=== PATIENT | female | born 1940 | race Caucasian/White ===

== ENCOUNTER → 2016-07-03 | Outpatient (CLI) | payer MEDICARE, BC ==
[2016-07-03 10:40] LABS: Basophils % (A) 1 %; Eosinophils # (A) 0.1 k/uL (0-0.7); Eosinophils % (A) 2 %; HCT 41.5 % (34.0-46.0); HDW 2.64; HGB 13.1 gm/dL (11.4-16.0); Luc # (Auto) 0.04; Luc % (Auto) 1; Lymphocytes # (A) 0.6 k/uL (1.0-4.8); Lymphocytes % (A) 13 %; MCH 32.8 pg (25.0-35.0); MCHC 31.6 g/dL (31.0-37.0); MCV 103.8 fL (80.0-100.0); Macrocytosis Moderate; Mean Platelet Volume 7.3; Monocytes # (A) 0.2 k/uL (0-1.0); Monocytes % (A) 4 %; Neutrophils # (A) 3.6 k/uL (1.3-7.7); Neutrophils % (A) 80 %; WBC 4.5 k/uL (3.8-10.6); WBC (Perox) 4.79
[2016-07-03 12:49] LABS: ALT 29 U/L (9-52); AST 22 U/L (14-36); Alkaline Phosphatase 132 U/L (38-126); Anion Gap 12 mmol/L; Blood Urea Nitrogen 15 mg/dL (7-17); Calcium 9.5 mg/dL (8.4-10.2); Carbon Dioxide 28 mmol/L (22-30); Chloride 102 mmol/L (98-107); Cholesterol 162 mg/dL (<200); Creatine Kinase 57 U/L (30-135); Glucose 104 mg/dL (74-99); HDL Cholesterol 49 mg/dL (40-60); Magnesium 1.6 mg/dL (1.6-2.3); Non-African American GFR(MDRD) >60 (>60 ml/min/1.73 sqM); Potassium 4.2 mmol/L (3.5-5.1); Sodium 142 mmol/L (137-145); Total Bilirubin 0.5 mg/dL (0.2-1.3); Total Protein 6.9 g/dL (6.3-8.2); Triglycerides 104 mg/dL (<150); Uric Acid 5.2 mg/dL (3.7-7.4)
[2016-07-03 13:28] LABS: Vitamin B12 466 pg/mL
[2016-07-03 15:14] LABS: Erythrocyte Sedimentation Rate 28 mm/hr (0-20)
[2016-07-03 19:45] LABS: Hemoglobin A1C 5.7 % (4.2-6.1)
== END | disposition home or self-care (01) ==
LOC: LABWHC1 09:32
PROVIDERS: ATTEND Family Medicine
DX: I48.2 Chronic atrial fibrillation (principal); E11.69 Type 2 diabetes mellitus with other specified complication; I10 Essential (primary) hypertension; R26.9 Unspecified abnormalities of gait and mobility; M10.9 Gout, unspecified; M79.7 Fibromyalgia; E03.9 Hypothyroidism, unspecified
CPT/HCPCS: 36415; 80053; 80061; 82043; 82550; 82607; 83036; 83735; 84439; 84443; 84550; 85025; 85652

== ENCOUNTER → 2016-08-08 | Outpatient (CLI) | payer MEDICARE, BC ==
--- NOTE | 2016-08-08 14:04 | MM ---
Reason for exam: history of breast cancer, conservation therapy. Last mammogram was performed 1 year and 2 months ago. History: Patient is postmenopausal, has history of breast cancer at age 73, and had first child at age 30. Family history of breast cancer in father at age 60. Lumpectomy of the left breast, 2013. Chemotherapy. Radiation therapy. Physical Findings: Nurse did not find any significant physical abnormalities on exam. MG 3D Diag Mammo W/Cad MAVERICK Bilateral CC and MLO view(s) were taken. Prior study comparison: June 14, 2015, bilateral MG 3d diag mammo w/cad MAVERICK. April 05, 2014, mammogram, performed at [facility]. April 12, 2013, mammogram, performed at [facility]. There are scattered fibroglandular densities. Finding: There are typically benign round calcifications in both breasts. There is a chronic nodularity in the left breast. There is no discrete abnormality. These results were verbally communicated with the patient and result sheet given to the patient on 08/08/16. ASSESSMENT: Benign, BI-RAD 2 RECOMMENDATION: Follow-up diagnostic mammogram of both breasts in 1 year.
--- NOTE | 2016-08-08 15:28 | BD ---
EXAMINATION TYPE: MG DEXA axial skeleton. DATE OF EXAM: 08/08/2016 12:57 PM COMPARISON: NONE CLINICAL HISTORY: Postmenopausal female with known osteoporosis per order. Height: 5 ft 6 in Weight: 230 FRAX RISK QUESTIONS: Alcohol (3 or more units per day): NO Family History (Parent hip fracture): NO Glucocorticoids (More than 3mos): NOT NOW (Ex: prednisone, prednisolone, methylprednisolone, dexamethasone, and hydrocortisone). History of Fracture in Adulthood: NO Secondary Osteoporosis: 1. Type 1 Diabetes: NO 2. Hyperthyroidism: NO 3. Menopause before 45: NO 4. Malnutrition: NO 5. Chronic liver disease: NO Rheumatoid Arthritis: NO Current Tobacco Use: NO RISK FACTORS HISTORY OF: Surgery to Spine/Hip(right/left)/Wrist (right/left): LUMBAR SURG When: 15 YRS AGO Postmenopausal woman: AROUND AGE 43 Frequent falls: YES MEDICATIONS: Thyroid Medications: Which medication: SYNTHROID How Lon-40 YRS SYNTHROID, POT-CHLOR, TENORMIN, DOXYCIN, XANAX, CYMBALTA, METFORMIN, LASIX, OXYBUTYNIN, TRAMADOL, D3, IRON, LIPITOR,ASPIRIN Additional History: EXAM MEASUREMENTS: Bone mineral density about the R hip (g/cm2): 0.887 Bone mineral density about the L hip (g/cm2): 0.854 T Score values are as follows: -----R Neck: -1.1 -----L Neck: -1.3 -----R Intertrochanter: -1.0 -----L Intertrochanter: -1.1 PREV DONE IN [facility] IMPRESSION: Osteopenia (T Score between -2.5 and -1 as noted by T score values in the bilateral hips. There is sl ightly increased risk of fracture and the patient may be considered for treatment. Re-Screen 1-2 years. NOTE: T-SCORE=SD OF THE YOUNG ADULT MEAN.
== END ==
LOC: RADBDWWP 12:26
PROVIDERS: ATTEND Family Medicine
DX: Z08 Encounter for follow-up examination after completed treatment for malignant neoplasm (principal); Z85.3 Personal history of malignant neoplasm of breast; M85.851 Other specified disorders of bone density and structure, right thigh; M85.852 Other specified disorders of bone density and structure, left thigh; Z78.0 Asymptomatic menopausal state
CPT/HCPCS: 77080; G0204; G0279

== ENCOUNTER → 2016-12-06 | Outpatient (CLI) | payer MEDICARE, BC ==
--- NOTE | 2016-12-06 12:54 | XR ---
EXAMINATION TYPE: XR ankle complete RT DATE OF EXAM: 12/06/2016 COMPARISON: NONE HISTORY: Right ankle pain TECHNIQUE: Three-view right ankle FINDINGS: There may be some diffuse soft tissue swelling present. The ankle mortise is intact. No acu te fractures are identified. Plantar calcaneal heel spurs are present. Note is made of plantar arch f lattening. IMPRESSION: 1. No acute fractures. 2. Soft tissue swelling. 3. Loss of the plantar arch
--- NOTE | 2016-12-06 12:55 | XR ---
EXAMINATION TYPE: XR Hip Complete LT DATE OF EXAM: 12/06/2016 COMPARISON: NONE HISTORY: Pain TECHNIQUE: 2 view left hip FINDINGS: There is narrowing of the joint space compatible with osteoarthritic degenerative change. N o acute fractures evident. There appears to be a lytic area within the superior femoral head. Prior f racture could be considered. Subchondral cyst formation could be considered. Osteochondritis dissecan s could be included. Additional evaluation with MRI is recommended. IMPRESSION: 1. Superior femoral head lucency. Additional workup with MRI is recommended. 2. An acute osseous abnormality is not identified.
== END | disposition home or self-care (01) ==
LOC: RADXRMAIN 12:16
PROVIDERS: ATTEND Family Medicine
DX: M89.8X6 Other specified disorders of bone, lower leg (principal); M25.552 Pain in left hip; M21.6X1 Other acquired deformities of right foot; M79.89 Other specified soft tissue disorders; M25.571 Pain in right ankle and joints of right foot
CPT/HCPCS: 73502

== ENCOUNTER → 2017-01-27 | Outpatient (CLI) | payer MEDICARE, BC ==
--- NOTE | 2017-01-27 11:08 | CT ---
EXAMINATION TYPE: CT lower extremity LT wo con DATE OF EXAM: 01/27/2017 COMPARISON: Plain film 12/06/2016 HISTORY: Left hip pain x2 months CT DLP: 349.50 mGycm Automated exposure control for dose reduction was used. Helical imaging through the left hip. Three-d imensional reconstructions performed on an alternate workstation. FINDINGS: CT findings correlate with plain film. There is joint space loss, marginal spurring present. Lucency seen on plain film corresponds to focal fragmented appearance at the superior aspect of the femoral h ead, there is associated sclerosis involving the femoral head at the level of the hip joint. No femor al head collapse is evident. Geode formation present within the acetabulum. Diverticular change noted incidentally within the sigmoid colon. IMPRESSION: FINDINGS COULD REPRESENT OSTEONECROSIS OF THE FEMORAL HEAD OR POSSIBLY OSTEOARTHRITIS WITH GEODE FORM ATION, DIFFICULT TO EXCLUDE SOME SMALL LOOSE BODIES.
== END | disposition home or self-care (01) ==
LOC: RADCTMAIN 09:13
PROVIDERS: ATTEND Family Medicine
DX: M25.552 Pain in left hip (principal)

== ENCOUNTER → 2017-01-30 | Outpatient (CLI) | payer MEDICARE, BC ==
--- NOTE | 2017-01-30 15:11 | NM ---
EXAMINATION TYPE: NM bone scan whole body DATE OF EXAM: 01/30/2017 COMPARISON: NONE HISTORY: Breast cancer Delayed whole-body scanning was performed following the injection of 26.0 mCi Tc 99m MDP. Images acq uired 3 hours post injection included whole-body in anterior posterior projection and spot images of the thorax abdomen and pelvis in multiple projections. FINDINGS: There is no suspicious scintigraphic uptake of radiotracer to suggest metastatic disease to the bone or other osseous abnormality with exception of single focus of abnormal uptake in the upper sternum. Lucency from bilateral knee metallic hardware is noted. There is slight underlying shaped scoliosis t o the thoracolumbar spine seen. IMPRESSION: Single area of concern in the upper sternum is noted, correlation with chest CT is advised as can bes t assess flat bones.
== END | disposition home or self-care (01) ==
LOC: RADNMMAIN 10:03
PROVIDERS: ATTEND Family Medicine
DX: C50.912 Malignant neoplasm of unspecified site of left female breast (principal)
CPT/HCPCS: 78306; A9503

== ENCOUNTER → 2017-05-26 | Outpatient (CLI) | payer MEDICARE, BC ==
--- NOTE | 2017-05-26 17:58 | ECHOF ---
Referral Reason:I50.33 Acute chronic CHF MEASUREMENTS -------- HEIGHT: 165.1 cm WEIGHT: 99.8 kg BP: RVIDd: 2.9 cm (< 3.3) IVSd: 1.1 cm (0.6 - 1.1) LVIDd: 4.4 cm (3.9 - 5.3) LVPWd: 1.0 cm (0.6 - 1.1) IVSs: 1.6 cm LVIDs: 3.1 cm LVPWs: 1.0 cm LAESV Index (A-L): 50.80 ml/m Ao Diam: 2.3 cm (2.0 - 3.7) AV Cusp: 1.6 cm (1.5 - 2.6) LA Diam: 4.6 cm (2.7 - 3.8) MV EXCURSION: 15.618 mm (> 18.000) MV EF SLOPE: 142 mm/s (70 - 150) EPSS: 0.7 cm MV E Carlos: 1.36 m/s MV DecT: 163 ms MV A Carlos: 0.44 m/s MV E/A Ratio: 3.09 RAP: 5.00 mmHg RVSP: 51.70 mmHg FINDINGS -------- Sinus rhythm. This was a technically adequate study. The left ventricular size is normal. There is mild concentric left ventricular hypertrophy. Overa ll left ventricular systolic function is normal with, an EF between 55 - 60 %. The right ventricle is normal in size. LA is severely dilated >40 ml/m2 The right atrium is markedly enlarged. There is mild aortic valve sclerosis. There is mild aortic regurgitation. Mild mitral annular calcification present. Moderate mitral regurgitation is present. Mild tricuspid regurgitation present. There is moderate pulmonary hypertension. The right ventric ular systolic pressure, as measured by Doppler, is 51.70mmHg. Trace/mild (physiologic) pulmonic regurgitation. The aortic root size is normal. There is no pericardial effusion. CONCLUSIONS -------- 1. The left ventricular size is normal. 2. There is mild concentric left ventricular hypertrophy. 3. Overall left ventricular systolic function is normal with, an EF between 55 - 60 %. 4. LA is severely dilated >40 ml/m2 5. The right atrium is markedly enlarged. 6. There is mild aortic valve sclerosis. 7. There is mild aortic regurgitation. 8. Mild mitral annular calcification present. 9. Moderate mitral regurgitation is present. 10. Mild tricuspid regurgitation present. 11. There is moderate pulmonary hypertension. 12. The right ventricular systolic pressure, as measured by Doppler, is 51.70mmHg. 13. Trace/mild (physiologic) pulmonic regurgitation. 14. The aortic root size is normal. 15. There is no pericardial effusion. INJECTION MOLDING TECHNICIAN: Fabiola Borrero RDCS
== END | disposition home or self-care (01) ==
LOC: RADECHMAIN 11:21
PROVIDERS: ATTEND Family Medicine
DX: I08.3 Combined rheumatic disorders of mitral, aortic and tricuspid valves (principal); I27.20 Pulmonary hypertension, unspecified; I50.33 Acute on chronic diastolic (congestive) heart failure
CPT/HCPCS: 93306

== ENCOUNTER → 2017-11-10 | Outpatient (CLI) | payer MEDICARE, BC ==
--- NOTE | 2017-11-10 11:48 | MM ---
Reason for exam: additional evaluation requested from prior study. Last mammogram was performed 1 year and 3 months ago. History: Patient is postmenopausal, has history of breast cancer at age 73, and had first child at age 30. Family history of breast cancer in father at age 60. Lumpectomy of the left breast, 2013. Chemotherapy. Radiation therapy. Physical Findings: Nurse did not find any significant physical abnormalities on exam. MG 3D Diag Mammo W/Cad MAVERICK Bilateral CC and MLO view(s) were taken. Prior study comparison: August 08, 2016, bilateral MG 3d diag mammo w/cad MAVERICK. June 14, 2015, bilateral MG 3d diag mammo w/cad MAVERICK. There are scattered fibroglandular densities. Post surgical changes in the left breast. No significant new findings when compared with previous films. These results were verbally communicated with the patient and result sheet given to the patient on 11/10/17. ASSESSMENT: Benign, BI-RAD 2 RECOMMENDATION: Follow-up diagnostic mammogram of both breasts in 1 year.
== END | disposition home or self-care (01) ==
LOC: RADMAMWWP 10:26
PROVIDERS: ATTEND Family Medicine
DX: R92.2 Inconclusive mammogram (principal)
CPT/HCPCS: 77066; G0279; 77062

== ENCOUNTER → 2017-12-25 | Outpatient (CLI) | payer MEDICARE, BC ==
--- NOTE | 2017-12-25 11:51 | XR ---
EXAMINATION TYPE: XR knee complete RT DATE OF EXAM: 12/25/2017 CLINICAL HISTORY: Pain and swelling. TECHNIQUE: Three views of the right knee are obtained. COMPARISON: None. FINDINGS: [place] osseous structures are demineralized. There is no acute fracture/dislocation eviden t in right knee. Metallic hardware from right knee arthroplasty is present. No suspicious surrounding lucency is seen. Patellofemoral narrowing and spurring is identified. Mild diffuse subcutaneous ch[place] a is seen without suspicious focal swelling. IMPRESSION: As above.
== END | disposition home or self-care (01) ==
LOC: RADXRMAIN 11:17
PROVIDERS: ATTEND Family Medicine
DX: M25.861 Other specified joint disorders, right knee (principal); M77.9 Enthesopathy, unspecified; R60.0 Localized edema; Z96.651 Presence of right artificial knee joint

== ENCOUNTER 2018-01-15 12:35 | Inpatient (IN) | payer MEDICARE, BC ==
[2018-01-15] MEDS ORDERED: SODIUM CHLORIDE 0.9% 1,000 ML IV STA (13:36)
--- NOTE | 2018-01-15 13:44 | ED ---
General Adult HPI - General Chief complaint: Fall Stated complaint: FALL, HEAD INJURY, FACIAL INJURY, LOW BP Time Seen by Provider: 01/15/18 13:25 Source: patient, family, RN notes reviewed Mode of arrival: wheelchair Limitations: no limitations - History of Present Illness Initial comments: Patient 77-year-old female presenting to the emergency room today with chief complaint of a fall that occurred this morning. Patient states that felt like her legs gave out. She states that she has been feeling weaker over the last 2 weeks. Patient daughter at bedside stating that she was started on a different water pill. States the edema in the legs has improved. Patient doesn't that her appetite has decreased. She states this morning she states she needed help from the staff at the adult care facility that she still isn't to get up. Patient states she did have an appointment with her doctor this afternoon but when they called were advised come here in the emergency room for further evaluation. Patient denies any other injuries from the fall. Patient states has been ambulatory after the fall using her walker. Patient denies any recent fever, chills, shortness of breath, chest pain, back pain, abdominal pain, nausea or vomiting, numbness or tingling, dysuria or hematuria, constipation or diarrhea, visual changes, or any other complaints. - Related Data Home Medications Medication Instructions Recorded Confirmed ALPRAZolam [Xanax] 0.5 mg PO BID PRN 08/03/15 01/15/18 DULoxetine HCL [Cymbalta] 60 mg PO DAILY 08/03/15 01/15/18 Doxepin [SINEquan] 50 mg PO HS 08/03/15 01/15/18 Aspirin EC [Ecotrin] 325 mg PO DAILY 08/07/15 01/15/18 Atenolol [Tenormin] 50 mg PO DAILY 08/07/15 01/15/18 Fluticasone Nasal [place] [Flonase 1 spr EA NOSTRIL DAILY 08/07/15 01/15/18 Nasal [place]] Levothyroxine Sodium [Synthroid] 175 mcg PO DAILY 08/07/15 01/15/18 Lisinopril [Zestril] 20 mg PO DAILY 08/07/15 01/15/18 Potassium Chloride [K-Tab ER] 10 meq PO DAILY 08/07/15 01/15/18 metFORMIN HCL [metFORMIN HCL ER] 1,000 mg PO BID 08/07/15 01/15/18 Allergies Allergy/AdvReac Type Severity Reaction Status Date / Time morphine Allergy Confusion Verified 01/15/18 12:50 Review of Systems ROS Statement: Those systems with pertinent positive or pertinent negative responses have been documented in the HPI. ROS Other: All systems not noted in ROS Statement are negative. Past Medical History Past Medical History: Coronary Artery Disease (CAD), Cancer, Hyperlipidemia, Hypertension Additional Past Medical History / Comment(s): breast cancer, arthritis History of Any Multi-Drug Resistant Organisms: None Reported Past Surgical History: Appendectomy, Cholecystectomy, Heart Catheterization With Stent, Joint Replacement, Orthopedic Surgery, Tonsillectomy Additional Past Surgical History / Comment(s): may knee replacments and ankle and shoulder surgeries Past Psychological History: No Psychological Hx Reported Smoking Status: Never smoker Past Alcohol Use History: Rare Past Drug Use History: None Reported General Exam - General Exam Comments Initial Comments: General: The patient is awake and alert, in no distress, and does not appear acutely ill. Eye: Pupils are equal, round and reactive to light, extra-ocular movements are intact. No nystagmus. There is normal conjunctiva bilaterally. No signs of icterus. Ears, nose, mouth and throat: There are moist mucous membranes and no oral lesions. Neck: The neck is supple, there is no tenderness or JVD. Cardiovascular: There is a regular rate and rhythm. No murmur, rub or gallop is appreciated. Respiratory: Lungs are clear to auscultation, respirations are non-labored, breath sounds are equal. No wheezes, stridor, rales, or rhonchi. Gastrointestinal: Soft, non-distended, non-tender abdomen without masses or organomegaly noted. There is no rebound or guarding present. No CVA tenderness. Bowel sounds are unremarkable. Musculoskeletal: Normal ROM. No tenderness of the cervical, thoracic or lumbar spine. No step-off deformity. Tender over left and right hip. Strength 5/5. Sensation intact. Pulses equal bilaterally 2+. Neurological: A&O x 3. CN II-XII intact, There are no obvious motor or sensory deficits. Coordination appears grossly intact. Speech is normal. Skin: Superficial abrasions to the left side of the forehead and upper lip. Psychiatric: Cooperative, appropriate mood & affect, normal judgment. Limitations: no limitations Course Vital Signs 01/15/18 12:47 Temperature 98.4 F Pulse Rate 75 Respiratory 18 Rate Blood Pressure 114/67 O2 Sat by Pulse 100 Oximetry Medical Decision Making - Medical Decision Making Patient's labs been reviewed. Shows potassium 2.5. This was started on both by mouth and IV potassium here in emergency room. Sodium 149. Chloride 71 BUN is 101 with creatinine 1.49. Patient does not that she's had some weakness over the last 2 weeks. States her legs gave out earlier today he had a meeting a fall. CT of the head is negative. EKG does show evidence for atrial fibrillation. Patient states she does have a history. No old EKG in the system to compare. Patient had started metolazone recently over the last 2 weeks. Patient's troponin elevated at 0.105. Case discussed with attending physician Dr. Barrera who did discuss case with Dr Terrazas who recommends holding blood thinner at this time due to frequent falls. Patient will be admitted to the hospital with consult to cardiology. - Lab Data Result diagrams: 01/15/18 13:51 01/15/18 13:51 Lab Results 01/15/18 01/15/18 01/15/18 Range/Units 13:51 13:51 13:51 WBC 10.3 (3.8-10.6) k/uL RBC 4.52 (3.80-5.40) m/uL Hgb 14.2 (11.4-16.0) gm/dL Hct 43.2 (34.0-46.0) % MCV 95.5 (80.0-100.0) fL MCH 31.3 (25.0-35.0) pg MCHC 32.8 (31.0-37.0) g/dL RDW 15.5 (11.5-15.5) % Plt Count 228 (150-450) k/uL Neutrophils % 86 % Lymphocytes % 7 % Monocytes % 6 % Eosinophils % 1 % Basophils % 0 % Neutrophils # 8.9 H (1.3-7.7) k/uL Lymphocytes # 0.7 L (1.0-4.8) k/uL Monocytes # 0.6 (0-1.0) k/uL Eosinophils # 0.1 (0-0.7) k/uL Basophils # 0.0 (0-0.2) k/uL PT (9.0-12.0) sec INR (<1.2) APTT (22.0-30.0) sec Sodium 129 L (137-145) mmol/L Potassium 2.5 L* (3.5-5.1) mmol/L Chloride 71 L* (98-107) mmol/L Carbon Dioxide 39 H (22-30) mmol/L Anion Gap 19 mmol/L BUN 101 H* (7-17) mg/dL Creatinine 1.49 H (0.52-1.04) mg/dL Est GFR (CKD-EPI)AfAm 38 (>60 ml/min/1.73 sqM) Est GFR (CKD-EPI)NonAf 33 (>60 ml/min/1.73 sqM) Glucose 128 H (74-99) mg/dL Calcium 10.2 (8.4-10.2) mg/dL Total Bilirubin 1.3 (0.2-1.3) mg/dL AST 89 H (14-36) U/L ALT 43 (9-52) U/L Alkaline Phosphatase 123 (38-126) U/L Total Creatine Kinase 473 H (30-135) U/L CK-MB (CK-2) 8.4 H* (0.0-2.4) ng/mL CK-MB (CK-2) Rel Index 1.8 Troponin I 0.105 H* (0.000-0.034) ng/mL NT-Pro-B Natriuret Pep pg/mL Total Protein 8.1 (6.3-8.2) g/dL Albumin 4.6 (3.5-5.0) g/dL 01/15/18 01/15/18 Range/Units 13:51 13:51 WBC (3.8-10.6) k/uL RBC (3.80-5.40) m/uL Hgb (11.4-16.0) gm/dL Hct (34.0-46.0) % MCV (80.0-100.0) fL MCH (25.0-35.0) pg MCHC (31.0-37.0) g/dL RDW (11.5-15.5) % Plt Count (150-450) k/uL Neutrophils % % Lymphocytes % % Monocytes % % Eosinophils % % Basophils % % Neutrophils # (1.3-7.7) k/uL Lymphocytes # (1.0-4.8) k/uL Monocytes # (0-1.0) k/uL Eosinophils # (0-0.7) k/uL Basophils # (0-0.2) k/uL PT 9.7 (9.0-12.0) sec INR 1.0 (<1.2) APTT 21.1 L (22.0-30.0) sec Sodium (137-145) mmol/L Potassium (3.5-5.1) mmol/L Chloride (98-107) mmol/L Carbon Dioxide (22-30) mmol/L Anion Gap mmol/L BUN (7-17) mg/dL Creatinine (0.52-1.04) mg/dL Est GFR (CKD-EPI)AfAm (>60 ml/min/1.73 sqM) Est GFR (CKD-EPI)NonAf (>60 ml/min/1.73 sqM) Glucose (74-99) mg/dL Calcium (8.4-10.2) mg/dL Total Bilirubin (0.2-1.3) mg/dL AST (14-36) U/L ALT (9-52) U/L Alkaline Phosphatase (38-126) U/L Total Creatine Kinase (30-135) U/L CK-MB (CK-2) (0.0-2.4) ng/mL CK-MB (CK-2) Rel Index Troponin I (0.000-0.034) ng/mL NT-Pro-B Natriuret Pep 1580 pg/mL Total Protein (6.3-8.2) g/dL Albumin (3.5-5.0) g/dL Disposition Clinical Impression: Fall, Hypokalemia, Hypochloremia, Hyponatremia, Elevated troponin, ANTONIETA (acute kidney injury) Disposition: ADMITTED IP TO THIS HOSP Condition: Stable Is patient prescribed a controlled substance at d/c from ED?: No Referrals: Brii Terrazas MD [Primary Care Provider] - 1-2 days Time of Disposition: 15:27
[2018-01-15 14:04] LABS: Basophils % (A) 0 %; Eosinophils # (A) 0.1 k/uL (0-0.7); Eosinophils % (A) 1 %; HCT 43.2 % (34.0-46.0); HGB 14.2 gm/dL (11.4-16.0); Lymphocytes # (A) 0.7 k/uL (1.0-4.8); Lymphocytes % (A) 7 %; MCH 31.3 pg (25.0-35.0); MCHC 32.8 g/dL (31.0-37.0); MCV 95.5 fL (80.0-100.0); Monocytes # (A) 0.6 k/uL (0-1.0); Monocytes % (A) 6 %; Neutrophils # (A) 8.9 k/uL (1.3-7.7); Neutrophils % (A) 86 %; Platelet Count 228 k/uL (150-450); RBC 4.52 m/uL (3.80-5.40); RDW 15.5 % (11.5-15.5); WBC 10.3 k/uL (3.8-10.6)
[2018-01-15 14:13] LABS: Albumin 4.6 g/dL (3.5-5.0); Calcium 10.2 mg/dL (8.4-10.2); Prothrombin Time 9.7 sec (9.0-12.0); Total Bilirubin 1.3 mg/dL (0.2-1.3); Total Protein 8.1 g/dL (6.3-8.2)
[2018-01-15 14:23] LABS: Potassium 2.5 mmol/L (3.5-5.1)
[2018-01-15] MEDS ORDERED: POTASSIUM CHLORIDE ER 20 MEQ TAB.ER PO STA ×2 (14:25→17:33)
[2018-01-15] MEDS ORDERED: POTASSIUM BICARBONATE/CIT AC 20 MEQ TABLET.EFF PO ONE (14:30)
[2018-01-15] MEDS ORDERED: POTASSIUM CHLORIDE 10 MEQ in WATER FOR INJECTION 1 100ML.BAG IVPB STA (14:31)
[2018-01-15 14:33] LABS: Partial Thromboplastin Time 21.1 sec (22.0-30.0)
--- NOTE | 2018-01-15 14:41 | CT ---
EXAMINATION TYPE: CT brain jose david mario con DATE OF EXAM: 01/15/2018 COMPARISON: 08/07/2015 HISTORY: 77-year-old female with pain, Fall, Head injury, Facial injury and Low blood pressure CT DLP: 1481 mGycm Automated exposure control for dose reduction was used. Technique: Examination of the head was done in axial plane without intravenous contrast. Coronal and sagittal reconstructions performed. CT of the cervical spine was obtained in axial plane without intravenous injection of contrast mater ial. Coronal and sagittal reformatted images were obtained from the axial views for evaluation of f ractures, spinal alignment and canal. FINDINGS: Head: There is no evidence of acute intracranial hemorrhage, acute ischemic changes, mass, mass-effect, or extra-axial fluid collection. There is no effacement of cerebral sulci or basal subarachnoid cister ns. There is no hydrocephalus. There is no midline shift. Horne-white matter distinction is preserv ed. The previous right frontal convexity subdural hematoma has resolved confluent white matter hypodensit ies in both cerebral hemispheres. There is sinuses and mastoid air cells well pneumatized. Orbits and globes are intact. Normal variati on of hyperostosis frontalis interna. No calvarial fracture. Cervical spine: The alignment of the cervical spine is normal on coronal and reformatted images. There is no cranial vertebral abnormality. Fracture of the cervical spine is not seen. Similar endplate spondylosis with posterior disc osteophyte complex at C5-C6 mildly narrowing the spinal canal. Scattered moderate face t arthropathy. Additional uncovertebral joint degenerative change. Changes result in moderate right n eural foraminal stenosis at C4-C5 and mild on both sides at C5-C6. Sagittal and coronal reformatted images confirm above findings. COMBINED IMPRESSION: 1. No acute intracranial abnormality seen. Similar severe confluent burden of chronic small vessel is chemic disease. 2. No acute fracture or malalignment of the cervical spine. Similar spondylosis at C5-C6.
--- NOTE | 2018-01-15 14:51 | XR ---
EXAMINATION TYPE: XR chest 2V DATE OF EXAM: 01/15/2018 COMPARISON: None HISTORY: Shortness of breath TECHNIQUE: Frontal and lateral views of the chest are obtained. FINDINGS: Scattered senescent parenchymal changes noted. Hyperinflation compatible with COPD. No evidence for infiltrate. No evidence for atelectasis. Heart size is stable. Mediastinal structures are stable and grossly unremarkable. Fixed hiatal hernia noted. Moderate size. No evidence for hilar prominence. Degenerative changes dorsal spine. IMPRESSION: 1. No evidence for acute pulmonary disease.
[2018-01-15 14:53] LABS: Creatine Kinase MB 8.4 ng/mL (0.0-2.4); Troponin I 0.105 ng/mL (0.000-0.034)
--- NOTE | 2018-01-15 14:53 | XR ---
EXAMINATION TYPE: XR shoulder complete RT DATE OF EXAM: 01/15/2018 CLINICAL HISTORY: pain TECHNIQUE: Three views of the right shoulder are obtained. COMPARISON: None FINDINGS: There is no acute fracture/dislocation evident. The acromioclavicular and glenohumeral mark int spaces appear within normal limits. The visualized ribs are intact and unremarkable. IMPRESSION: 1. There is no acute fracture or dislocation. ICD 10 NO FRACTURE, INITIAL EVALUATION
[2018-01-15] MEDS ORDERED: SODIUM CHLORIDE 0.9% 1,000 ML IV ONE (15:27)
[2018-01-15] MEDS ORDERED: ONDANSETRON 4 MG/2 ML VIAL IVP PRN (15:27)
[2018-01-15] MEDS ORDERED: ASPIRIN 81 MG PO STA (15:29)
[2018-01-15] MEDS ORDERED: NITROGLYCERIN SL TABS 0.4 MG TAB SUBLINGUAL PRN (15:29)
[2018-01-15 15:56] LABS: Amorphous Sediment,Urine Rare /hpf; Appearance,Urine Cloudy (Clear); Bilirubin,Urine Negative (Negative); Blood,Urine Trace (Negative); Budding Yeast,Urine Rare /hpf; Color,Urine Yellow; Glucose,Urine (UA) Negative (Negative); Ketones,Urine Negative (Negative); Leukocyte Esterase,Urine Trace (Negative); Mucus,Urine Rare /hpf; Nitrite,Urine Negative (Negative); Protein,Urine Trace (Negative); Specific Gravity,Urine 1.012 (1.001-1.035); Squamous Epithelial Cell,Urine 14 /hpf (0-4); WBC,Urine 5 /hpf (0-5)
[2018-01-15] MEDS ORDERED: ALPRAZolam 0.5 MG TAB PO PRN (17:31)
[2018-01-15] MEDS ORDERED: POTASSIUM CHLORIDE 10 MEQ in WATER FOR INJECTION 1 100ML.BAG IVPB ONE (17:33)
[2018-01-15 17:38] LABS: Glucose,Whole Blood 156 mg/dL (75-99)
[2018-01-15] MEDS: ACETAMINOPHEN TAB 325 MG TAB PO PRN (19:49)
[2018-01-15] MEDS: DOXEPIN 25 MG CAP PO SCH (19:49)
[2018-01-15 20:22] LABS: Creatine Kinase MB 7.3 ng/mL (0.0-2.4)
[2018-01-15 20:23] LABS: Troponin I 0.091 ng/mL (0.000-0.034)
[2018-01-15 21:26] LABS: Glucose,Whole Blood 162 mg/dL (75-99)
[2018-01-16 03:20] LABS: Basophils % (A) 0 %; Eosinophils # (A) 0.2 k/uL (0-0.7); Eosinophils % (A) 2 %; HCT 39.3 % (34.0-46.0); HGB 12.7 gm/dL (11.4-16.0); Lymphocytes # (A) 1.1 k/uL (1.0-4.8); Lymphocytes % (A) 15 %; MCH 31.5 pg (25.0-35.0); MCHC 32.4 g/dL (31.0-37.0); MCV 97.4 fL (80.0-100.0); Mean Platelet Volume 6.7; Monocytes # (A) 0.5 k/uL (0-1.0); Monocytes % (A) 6 %; Neutrophils # (A) 5.4 k/uL (1.3-7.7); Neutrophils % (A) 75 %; Platelet Count 176 k/uL (150-450); RBC 4.03 m/uL (3.80-5.40); RDW 15.5 % (11.5-15.5); WBC 7.2 k/uL (3.8-10.6)
[2018-01-16 03:32] LABS: Albumin 3.8 g/dL (3.5-5.0); Calcium 9.5 mg/dL (8.4-10.2); Total Protein 6.4 g/dL (6.3-8.2)
[2018-01-16] MEDS: ACETAMINOPHEN TAB 325 MG TAB PO PRN ×2 (03:37→14:36)
[2018-01-16 03:55] LABS: Potassium 2.5 mmol/L (3.5-5.1)
[2018-01-16 03:57] LABS: Creatine Kinase MB 4.5 ng/mL (0.0-2.4)
[2018-01-16 03:58] LABS: Troponin I 0.073 ng/mL (0.000-0.034)
[2018-01-16] MEDS: POTASSIUM CHLORIDE ER 20 MEQ TAB.ER PO SCH ×5 (05:52→17:14)
[2018-01-16] MEDS: SODIUM CHLORIDE 0.9% 1,000 ML IV SCH ×2 (05:53→15:49)
[2018-01-16 06:55] LABS: Glucose,Whole Blood 126 mg/dL (75-99)
[2018-01-16] MEDS ORDERED: Potassium Replacement Protocol 1 EACH MISC MISCELLANE PRN (08:49)
[2018-01-16] MEDS: ATENOLOL 50 MG TAB PO SCH (08:58)
[2018-01-16] MEDS ORDERED: NON-FORMULARY DRUG (Aspirin Ec 325 MG) PO SCH (09:00)
[2018-01-16] MEDS ORDERED: NEOMYCIN-BACITRACIN-POLY OINT 14 GM TUBE TOPICAL PRN (11:26)
[2018-01-16] MEDS: ASPIRIN 325 MG TAB PO SCH (12:16)
[2018-01-16 12:21] LABS: Glucose,Whole Blood 112 mg/dL (75-99)
--- NOTE | 2018-01-16 13:28 | P.HPIM ---
History of Present Illness H&P Date: 01/16/18 Chief Complaint: weakness, fall at home This 77-year-old pleasant lady known to my practice. 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 Patient had fallen at home, patient did not pass out. Patient has diminished appetite, not eating, we have seen her in the office 12/25/2017, secondary to increase in leg swelling, and pruritus. We have given her prednisone, and adjusted her diuretic, And kept Her Lasix at 40 mg 3 times a day, and added metolazone 2.5 mg daily She now presents to emergency room with the above complaints, evaluation the ER included a sodium of 1:30, potassium 2.5, BUN 87, creatinine is 1.10, glucose of 105 liver function test looks okay, no leukocytosis, urinalysis shows 5 WBC, negative for RBCs. Troponin was 0.09. Cardiology was requested, and echocardiogram to be done, metolazone is on hold metformin and Lasix, gentle hydration, replacement of electrolytes Review of Systems Constitutional: Reports as per HPI, Reports anorexia, Denies chills, Denies chronic headaches, Denies chronic pain, Denies daytime sleepiness, Denies fatigue, Denies fever, Denies lethargy, Denies malaise, Denies night sweats, Denies poor appetite, Denies sweats, Denies weakness, Denies weight gain, Denies weight loss Ears, nose, mouth and throat: Reports as per HPI, Denies ant. neck pain, Denies bleeding gums, Denies dental pain, Denies dysphagia, Denies epistaxis, Denies headache, Denies hoarseness, Denies mouth pain, Denies nasal congestion, Denies nasal discharge, Denies neck fullness/pressure, Denies neck lump, Denies nose pain, Denies odynophagia, Denies post-nasal drip, Denies sinus pain, Denies sinus pressure, Denies swelling in mouth, Denies swelling in throat, Denies sore throat, Denies vertigo, Denies voice changes Cardiovascular: Reports as per HPI, Reports edema, Reports leg edema, Denies chest pain, Denies claudication, Denies decreased exercise tolerance, Denies dyspnea on exertion, Denies high blood pressure, Denies irregular heart beat, Denies lightheadedness, Denies orthopnea, Denies palpitations, Denies paroxysmal nocturnal dyspnea, Denies phlebitis, Denies rapid heart beat, Denies shortness of breath, Denies syncope Respiratory: Reports as per HPI, Denies congestion, Denies cough, Denies cough with sputum, Denies dyspnea, Denies excessive sputum, Denies hemoptysis, Denies home oxygen, Denies pain, Denies pain on inspiration, Denies pleurisy, Denies respiratory infections, Denies sleep apnea, Denies snoring, Denies wheezing Gastrointestinal: Reports as per HPI, Reports early satiety, Denies abdominal pain, Denies belching, Denies bloating, Denies BRBPR, Denies change in bowel habits, Denies coffee ground emesis, Denies constipation, Denies diarrhea, Denies dyspepsia, Denies excessive gas, Denies heartburn, Denies hematemesis, Denies hematochezia, Denies indigestion, Denies jaundice, Denies lactose intolerance, Denies loss of appetite, Denies melena, Denies nausea, Denies vomiting Genitourinary: Reports as per HPI, Denies abnormal vaginal bleeding, Denies decreased libido, Denies difficulty conceiving, Denies difficulty voiding, Denies dysmenorrhea, Denies dyspareunia, Denies dysuria, Denies flank pain, Denies genital sores, Denies hematuria, Denies hot flashes, Denies incomplete emptying, Denies kidney stones, Denies menorrhagia, Denies mixed incontinence, Denies nocturia, Denies pelvic pain, Denies post void dribbling, Denies , Denies prolapse symptoms, Denies stress incontinence, Denies urge incontinence , Denies urgency, Denies urinary frequency, Denies vaginal discharge, Denies vaginal dryness, Denies vaginal itching, Denies vaginal odor Menstruation: Reports as per HPI, Denies amenorrhea, Denies amenorrhea on BC, Denies currently menstrual, Denies cycle < 21 days, Denies cycle > 35 days, Denies cycle variable, Denies menses 1-7 days, Denies menses 8 or > days, Denies menses variable, Denies period heavy, Denies period light, Denies period normal, Denies period spotting, Denies post hysterectomy, Denies postmenopausal , Denies premenarcheal Musculoskeletal: Reports as per HPI Integumentary: Reports as per HPI, Denies acne, Denies boils, Denies brittle nails, Denies change in hair/nails, Denies color changes, Denies darkening of skin, Denies depigmentation, Denies dryness, Denies foot/leg ulcers, Denies growths, Denies hirsutism, Denies lesions, Denies onychomycosis, Denies pruritus , Denies rash, Denies sores, Denies striae, Denies unusual bruising, Denies wounds Neurological: Reports as per HPI, Reports balance difficulties, Reports gait dysfunction, Reports lack of coordination, Reports weakness Psychiatric: Reports as per HPI, Denies anhedonia, Denies anxiety, Denies anxiety attacks, Denies change in appetite, Denies change in libido, Denies change in sleep habits, Denies confusion, Denies depression, Denies difficulty concentrating, Denies disorientation, Denies hallucinations, Denies hopelessness , Denies hypersomnia, Denies insomnia, Denies irritability, Denies memory loss, Denies mood swings, Denies paranoia, Denies sadness/tearfulness, Denies sleep disturbances, Denies suicidal ideation Endocrine: Reports as per HPI, Denies cold intolerance, Denies deepening of the voice, Denies excessive sweating, Denies excessive thirst, Denies fatigue, Denies flushing, Denies heat intolerance, Denies high blood sugars, Denies increase in ring/shoe/hat size, Denies low blood sugars, Denies nocturia, Denies palpitations, Denies polydipsia, Denies polyphagia, Denies polyuria, Denies proptosis, Denies recent glucocorticoid use, Denies thyroid mass, Denies weight change Hematologic/Lymphatic: Reports as per HPI, Denies easy bleeding, Denies easy bruising, Denies lymphadenopathy, Denies lymphedema, Denies thrombophilia Allergic/Immunologic: Reports as per HPI, Denies allergic rhinitis, Denies anaphylaxis, Denies angioedema, Denies gluten intolerance, Denies persistent infections, Denies seasonal allergies, Denies urticaria, Denies wheezing Past Medical History Past Medical History: Coronary Artery Disease (CAD), Cancer, Diabetes Mellitus, Hyperlipidemia, Hypertension, Osteoarthritis (OA), Thyroid Disorder Additional Past Medical History / Comment(s): lt breast cancer had lumpectomy and chemo, arthritis, upper bridge, sinus ,anxiety takes xanax History of Any Multi-Drug Resistant Organisms: None Reported Past Surgical History: Appendectomy, Cholecystectomy, Heart Catheterization With Stent, Joint Replacement, Orthopedic Surgery, Tonsillectomy Additional Past Surgical History / Comment(s): may knee replacements."lt ankle arthroscopy and clean out" ,rt shoulder floating bone removed. Past Anesthesia/Blood Transfusion Reactions: No Reported Reaction Date of Last Stent Placement:: unk Smoking Status: Never smoker - Past Family History Father Family Medical History: Cancer Additional Family Medical History / Comment(s): dad had breast cancer Mother Family Medical History: No Reported History ( from old age) Additional Family Medical History / Comment(s): from old age in her 90's Brother(s) History Unknown: Yes ( from old age) Daughter(s) Family Medical History: No Reported History (healthy) Medications and Allergies Home Medications Medication Instructions Recorded Confirmed Type DULoxetine HCL [Cymbalta] 60 mg PO DAILY 08/03/15 01/15/18 History Doxepin [SINEquan] 50 mg PO HS 08/03/15 01/15/18 History Aspirin EC [Ecotrin] 325 mg PO DAILY 08/07/15 01/15/18 History Atenolol [Tenormin] 50 mg PO DAILY 08/07/15 01/15/18 History Potassium Chloride [K-Tab ER] 10 meq PO DAILY 08/07/15 01/15/18 History Allopurinol [Zyloprim] 300 mg PO DAILY 01/15/18 01/15/18 History Atorvastatin Calcium [Lipitor] 20 mg PO DAILY 01/15/18 01/15/18 History Cyanocobalamin (Vitamin B-12) 1,000 mcg PO DAILY 01/15/18 01/15/18 History [Vitamin B-12] Ferrous Sulfate [Iron] 325 mg PO DAILY 01/15/18 01/15/18 History Furosemide [Lasix] 40 mg PO MOWEFR 01/15/18 01/15/18 History Levothyroxine Sodium 300 mcg PO DAILY 01/15/18 01/15/18 History Losartan Potassium [Cozaar] 25 mg PO DAILY 01/15/18 01/15/18 History Metolazone [Zaroxolyn] 2.5 mg PO DAILY 01/15/18 01/15/18 History Oxybutynin Chloride [Ditropan XL] 10 mg PO BID 01/15/18 01/15/18 History metFORMIN HCL 1,000 mg PO BID 01/15/18 01/15/18 History Allergies Allergy/AdvReac Type Severity Reaction Status Date / Time morphine Allergy Confusion Verified 01/15/18 19:00 Physical Exam Vitals: Vital Signs Temp Pulse Pulse Resp BP BP Pulse Ox 01/16/18 10:55 16 01/16/18 08:00 97.1 F L 80 16 123/70 98 01/16/18 04:00 78 16 121/68 98 01/16/18 00:00 78 16 106/63 97 01/15/18 20:00 97.1 F L 80 16 114/60 100 01/15/18 17:11 97.0 F L 78 16 128/70 99 01/15/18 16:55 78 18 107/55 99 01/15/18 15:27 66 18 114/59 99 01/15/18 12:47 98.4 F 75 18 114/67 100 Intake and Output 01/15/18 01/16/18 01/16/18 22:59 06:59 14:59 Intake Total 100 300 200 Output Total 100 Balance 100 200 200 Intake: Intake, IV Titration 100 Amount Sodium Chloride 0.9% 1, 100 000 ml @ 100 mls/hr IV . Q10H ONE Rx#:[id number] Oral 300 200 Output: Urine 100 Other: Voiding Method Bedside Commode Bedside Commode # Voids 1 1 Weight 91.5 kg 91.5 kg - Constitutional General appearance: cooperative, no acute distress, obese - EENT Eyes: anicteric sclerae, EOMI, PERRLA, dentition normal, normal appearance ENT: NA/AT, normal oropharynx - Respiratory Respiratory: bilateral: CTA, negative: diminished, dullness, rales, rhonchi, wheezing - Cardiovascular Rhythm: regular Heart sounds: normal: S1, S2 Abnormal Heart Sounds: no systolic murmur, no diastolic murmur, no rub, no S3 Gallop, no S4 Gallop, no click, no other - Gastrointestinal General gastrointestinal: normal bowel sounds, soft - Integumentary Integumentary: decreased turgor, normal - Neurologic Neurologic: CNII-XII intact - Musculoskeletal Musculoskeletal: generalized weakness, strength equal bilaterally - Psychiatric Psychiatric: A&O x's 3, appropriate affect, intact judgment & insight Results CBC & Chem 7: 01/16/18 02:52 01/16/18 02:52 Labs: Abnormal Lab Results - Last 24 Hours (Table) 01/15/18 01/15/18 01/15/18 Range/Units 13:51 13:51 13:51 Neutrophils # 8.9 H (1.3-7.7) k/uL Lymphocytes # 0.7 L (1.0-4.8) k/uL APTT (22.0-30.0) sec Sodium 129 L (137-145) mmol/L Potassium 2.5 L* (3.5-5.1) mmol/L Chloride 71 L* (98-107) mmol/L Carbon Dioxide 39 H (22-30) mmol/L BUN 101 H* (7-17) mg/dL Creatinine 1.49 H (0.52-1.04) mg/dL Glucose 128 H (74-99) mg/dL POC Glucose (mg/dL) (75-99) mg/dL Magnesium (1.6-2.3) mg/dL AST 89 H (14-36) U/L Total Creatine Kinase 473 H (30-135) U/L CK-MB (CK-2) 8.4 H* (0.0-2.4) ng/mL Troponin I 0.105 H* (0.000-0.034) ng/mL LDL Cholesterol, Calc (0-99) mg/dL Urine Appearance (Clear) Urine Protein (Negative) Urine Blood (Negative) Ur Leukocyte Esterase (Negative) Ur Squamous Epith Cells (0-4) /hpf Amorphous Sediment (None) /hpf Urine Mucus (None) /hpf Urine Yeast (Budding) (None) /hpf 01/15/18 01/15/18 01/15/18 Range/Units 13:51 15:35 17:17 Neutrophils # (1.3-7.7) k/uL Lymphocytes # (1.0-4.8) k/uL APTT 21.1 L (22.0-30.0) sec Sodium (137-145) mmol/L Potassium (3.5-5.1) mmol/L Chloride (98-107) mmol/L Carbon Dioxide (22-30) mmol/L BUN (7-17) mg/dL Creatinine (0.52-1.04) mg/dL Glucose (74-99) mg/dL POC Glucose (mg/dL) 156 H (75-99) mg/dL Magnesium (1.6-2.3) mg/dL AST (14-36) U/L Total Creatine Kinase (30-135) U/L CK-MB (CK-2) (0.0-2.4) ng/mL Troponin I (0.000-0.034) ng/mL LDL Cholesterol, Calc (0-99) mg/dL Urine Appearance Cloudy H (Clear) Urine Protein Trace H (Negative) Urine Blood Trace H (Negative) Ur Leukocyte Esterase Trace H (Negative) Ur Squamous Epith Cells 14 H (0-4) /hpf Amorphous Sediment Rare H (None) /hpf Urine Mucus Rare H (None) /hpf Urine Yeast (Budding) Rare H (None) /hpf 01/15/18 01/15/18 01/16/18 Range/Units 19:28 21:19 02:52 Neutrophils # (1.3-7.7) k/uL Lymphocytes # (1.0-4.8) k/uL APTT (22.0-30.0) sec Sodium (137-145) mmol/L Potassium (3.5-5.1) mmol/L Chloride (98-107) mmol/L Carbon Dioxide (22-30) mmol/L BUN (7-17) mg/dL Creatinine (0.52-1.04) mg/dL Glucose (74-99) mg/dL POC Glucose (mg/dL) 162 H (75-99) mg/dL Magnesium (1.6-2.3) mg/dL AST (14-36) U/L Total Creatine Kinase 464 H 360 H (30-135) U/L CK-MB (CK-2) 7.3 H* 4.5 H* (0.0-2.4) ng/mL Troponin I 0.091 H* 0.073 H* (0.000-0.034) ng/mL LDL Cholesterol, Calc (0-99) mg/dL Urine Appearance (Clear) Urine Protein (Negative) Urine Blood (Negative) Ur Leukocyte Esterase (Negative) Ur Squamous Epith Cells (0-4) /hpf Amorphous Sediment (None) /hpf Urine Mucus (None) /hpf Urine Yeast (Budding) (None) /hpf 01/16/18 01/16/18 01/16/18 Range/Units 02:52 02:52 06:41 Neutrophils # (1.3-7.7) k/uL Lymphocytes # (1.0-4.8) k/uL APTT (22.0-30.0) sec Sodium 130 L (137-145) mmol/L Potassium 2.5 L* (3.5-5.1) mmol/L Chloride 79 L* (98-107) mmol/L Carbon Dioxide 38 H (22-30) mmol/L BUN 87 H* (7-17) mg/dL Creatinine 1.10 H (0.52-1.04) mg/dL Glucose 105 H (74-99) mg/dL POC Glucose (mg/dL) 126 H (75-99) mg/dL Magnesium 2.7 H (1.6-2.3) mg/dL AST 71 H (14-36) U/L Total Creatine Kinase (30-135) U/L CK-MB (CK-2) (0.0-2.4) ng/mL Troponin I (0.000-0.034) ng/mL LDL Cholesterol, Calc 101 H (0-99) mg/dL Urine Appearance (Clear) Urine Protein (Negative) Urine Blood (Negative) Ur Leukocyte Esterase (Negative) Ur Squamous Epith Cells (0-4) /hpf Amorphous Sediment (None) /hpf Urine Mucus (None) /hpf Urine Yeast (Budding) (None) /hpf Thrombosis Risk Factor Assmnt - DVT/VTE Prophylaxis DVT/VTE Prophylaxis: Pharmacologic Prophylaxis ordered - Choose All That Apply Any of the Below Risk Factors Present?: Yes Each Factor Represents 1 point: Obesity (BMI >25), Swollen legs (current) Each Risk Factor Represents 3 Points: Age 75 years or older Thrombosis Risk Factor Assessment Total Risk Factor Score: 5 Thrombosis Risk Factor Assessment Level: High Risk Assessment and Plan Plan: 1. Acute kidney injury with azotemia secondary to dehydration, from diuretic use as well as diminished oral intake, patient would be hydrated, electrodes will be replaced, hold Lasix, hold metolazone and hold metformin.. Likes to be reevaluated at 6 PM tonight daily. Patient might need renal ultrasound should the creatinine not improve, might need post void residuals 2. Fall with contusion to face, abrasion in the left eyebrow, and nasal bridge , and chin and mouth. Would care to be provided, CAT scan of the brain and cervical spine CT failed to reveal any acute fractures 3. Diabetes mellitus type 2 hold metformin continue on Accu-Cheks with NovoLog scale, her A1c to be done one the hospital 5. Breast cancer with negative metastatic disease on brain CT 6. Hypothyroidism, TSH to be evaluated 7. Hypertension, patient currently is normotensive, we can resume losartan and 25 mg in the morning, with parameters X 8. Gout on allopurinol 300 mg daily we'll going to hold as patient comes in with acute kidney injury, protect from interstitial nephritis 9. Chronic pain, on doxepin 50 mg at bedtime and Cymbalta 60 mg daily 10. Elevated troponin, echocardiogram to be done, cardiology in consultation, 11. Electrolyte abnormality with hyponatremia, hypokalemia, hypochloremia, and metabolic alkalosis secondary to diuretic use, metolazone is on hold, continue IV hydration, replacement of potassium and sodium 12. Hyperlipidemia, resume Lipitor, we would monitor for rhabdo, especially with the fall 13. Generalized edema bilateral lower extremity, this has improved, Lasix and metolazone at currently on hold secondary to azotemia and we will resume Lasix 40 mg every morning, we would hold off Zaroxolyn post discharge, and reevaluate as an outpatient 14. Hyponatremia most likely secondary to diuretic use, and possibly from diminished oral intake, and hypervolemia. Serum osmolality and urine osmolality to be done. 15. Debility, . Balance pre-existing prior to admission, falls at home prior to admission, patient to be seen by physical therapy and occupational therapy, patient might need subacute rehabilitation, however patient refused at this time , patient might need inpatient rehab or home therapies. Patient currently resides at [facility] facility Discharge planning to be determined. Home therapy is requested by the patient however patient might need skilled or subacute PT OT requested, next DVT prophylaxis Lovenox 30 GI prophylaxis with Pepcid
[2018-01-16] MEDS ORDERED: FAMOTIDINE 20 MG TAB PO SCH (13:45)
[2018-01-16] MEDS: FAMOTIDINE 20 MG TAB PO SCH (15:49)
[2018-01-16] MEDS: ENOXAPARIN 30 MG/0.3 ML SYRINGE SQ SCH (15:49)
--- NOTE | 2018-01-16 15:54 | US ---
EXAMINATION TYPE: US carotid duplex BILAT DATE OF EXAM: 01/16/2018 COMPARISON: NONE CLINICAL HISTORY: 77-year-old female LVF. Lightheaded TECHNIQUE: Carotid duplex ultrasound examination. Indirect Doppler criteria was utilized. FINDINGS: EXAM MEASUREMENTS: RIGHT: Peak Systolic Velocity (PSV) cm/sec ----- Right CCA: 67.1 ----- Right ICA: 67.1 ----- Right ECA: 63.6 ICA/CCA ratio: 1.0 RIGHT: End Diastole cm/sec ----- Right CCA: 13.0 ----- Right ICA: 21.7 ----- Right ECA: 6.9 LEFT: Peak Systolic Velocity (PSV) cm/sec ----- Left CCA: 85.6 ----- Left ICA: 71.4 ----- Left ECA: 76.8 ICA/CCA ratio: 0.8 LEFT: End Diastole cm/sec ----- Left CCA: 21.9 ----- Left ICA: 20.0 ----- Left ECA: 0.0 VERTEBRALS (direction of flow): Right Vertebral: Antegrade Left Vertebral: Antegrade Rhythm: Arrhythmia No significant stenosis seen. Mild to moderate atherosclerotic change at both bifurcations. IMPRESSION: No hemodynamically significant stenosis appreciated in either internal carotid artery. Criteria for Assigning % of Stenosis / Diameter reduction (Estimation based on the indirect measurements of the internal carotid artery velocities (ICA PSV). 1. Normal (no stenosis)=ICA PSV < 125 cm/s: ratio < 2.0: ICA EDV<40 cm/s. 2. Less than 50% stenosis=ICA PSV < 125 cm/s: ratio < 2.0: ICA EDV<40 cm/s. 3. 50 to 69% stenosis=ICA PSV of 125 to 230 cm/s: ration 2.0 ? 4.0: ICA EDV 40-100 cm/s. 4. Greater than 70% stenosis to near occlusion= ICA PSV > 230 cm/s: ratio > 4.0: ICA EDV > 100 cm/s. 5. Near occlusion= ICA PSV velocities may be low or undetectable: variable ratio and ICA EDV. 6. Total occlusion=unable to detect flow.
[2018-01-16 17:11] LABS: Glucose,Whole Blood 97 mg/dL (75-99)
--- NOTE | 2018-01-16 18:27 | P.CRDCN ---
History of Present Illness Consult date: 01/16/18 History of present illness: This is a 77-year-old female with history of coronary artery disease, diabetes mellitus, hypertension and also hypothyroidism. This patient is admitted to the hospital following a fall. Patient did not have any syncopal episodes. She denied any chest pain, dizziness or shortness of breath. Apparently patient was seen in primary care physician's office with increasing swelling and edema. She was started on metolazone 2.5 mg daily along with Lasix. Patient appears to have become dehydrated with high BUN and also low potassium. Her troponin value was elevated but her creatinine was 1.49 on admission with be enough 101. EKG showed evidence of atrial fibrillation with controlled ventricular response and diffuse ST-T abnormalities. At this point it appears that patient's symptoms are mostly related to dehydration and electrolyte abnormalities. Patient is being gently hydrated. Echo is being obtained Review of Systems As per the chart Past Medical History Past Medical History: Coronary Artery Disease (CAD), Cancer, Diabetes Mellitus, Hyperlipidemia, Hypertension, Osteoarthritis (OA), Thyroid Disorder Additional Past Medical History / Comment(s): lt breast cancer had lumpectomy and chemo, arthritis, upper bridge, sinus ,anxiety takes xanax History of Any Multi-Drug Resistant Organisms: None Reported Past Surgical History: Appendectomy, Cholecystectomy, Heart Catheterization With Stent, Joint Replacement, Orthopedic Surgery, Tonsillectomy Additional Past Surgical History / Comment(s): may knee replacements."lt ankle arthroscopy and clean out" ,rt shoulder floating bone removed. Past Anesthesia/Blood Transfusion Reactions: No Reported Reaction Date of Last Stent Placement:: unk Smoking Status: Never smoker - Past Family History Father Family Medical History: Cancer Additional Family Medical History / Comment(s): dad had breast cancer Mother Family Medical History: No Reported History ( from old age) Additional Family Medical History / Comment(s): from old age in her 90's Brother(s) History Unknown: Yes ( from old age) Daughter(s) Family Medical History: No Reported History (healthy) Medications and Allergies Home Medications Medication Instructions Recorded Confirmed Type DULoxetine HCL [Cymbalta] 60 mg PO DAILY 08/03/15 01/15/18 History Doxepin [SINEquan] 50 mg PO HS 08/03/15 01/15/18 History Aspirin EC [Ecotrin] 325 mg PO DAILY 08/07/15 01/15/18 History Atenolol [Tenormin] 50 mg PO DAILY 08/07/15 01/15/18 History Potassium Chloride [K-Tab ER] 10 meq PO DAILY 08/07/15 01/15/18 History Allopurinol [Zyloprim] 300 mg PO DAILY 01/15/18 01/15/18 History Atorvastatin Calcium [Lipitor] 20 mg PO DAILY 01/15/18 01/15/18 History Cyanocobalamin (Vitamin B-12) 1,000 mcg PO DAILY 01/15/18 01/15/18 History [Vitamin B-12] Ferrous Sulfate [Iron] 325 mg PO DAILY 01/15/18 01/15/18 History Furosemide [Lasix] 40 mg PO MOWEFR 01/15/18 01/15/18 History Levothyroxine Sodium 300 mcg PO DAILY 01/15/18 01/15/18 History Losartan Potassium [Cozaar] 25 mg PO DAILY 01/15/18 01/15/18 History Metolazone [Zaroxolyn] 2.5 mg PO DAILY 01/15/18 01/15/18 History Oxybutynin Chloride [Ditropan XL] 10 mg PO BID 01/15/18 01/15/18 History metFORMIN HCL 1,000 mg PO BID 01/15/18 01/15/18 History Allergies Allergy/AdvReac Type Severity Reaction Status Date / Time morphine Allergy Confusion Verified 01/15/18 19:00 Physical Exam Vitals: Vital Signs Temp Pulse Resp BP Pulse Ox 01/16/18 15:57 65 16 99/54 99 01/16/18 15:36 16 01/16/18 12:00 61 16 112/63 99 01/16/18 10:55 16 01/16/18 08:00 97.1 F L 80 16 123/70 98 01/16/18 04:00 78 16 121/68 98 01/16/18 00:00 78 16 106/63 97 01/15/18 20:00 97.1 F L 80 16 114/60 100 Intake and Output 01/16/18 01/16/18 01/16/18 06:59 14:59 22:59 Intake Total 300 686 440 Output Total 100 Balance 200 686 440 Intake: Oral 300 686 440 Output: Urine 100 Other: Voiding Method Bedside Commode Bedside Commode # Voids 1 2 Weight 91.5 kg 91.5 kg GENERAL EXAM: Patient is alert and oriented and doesn't appear to be in any acute distress HEENT: Normocephalic. Normal reaction of pupils, equal size, normal range of extraocular motion. No erythema or exudates in the throat. NECK: No masses, no nuchal rigidity. CHEST: No chest wall deformity. LUNGS: Equal air entry with no crackles or wheeze. HEART: S1 and S2 normal with no audible mumurs or gallops. Regular rhythm, femorals equal on both sides.. ABDOMEN: No hepatosplenomegaly, normal bowel sounds, no guarding or rigidity. SKIN: No rashes CENTRAL NERVOUS SYSTEM: No focal deficits. EXTREMITIES: Edema present. Results 01/16/18 02:52 01/16/18 02:52 Cardiac Enzymes 01/15/18 01/16/18 01/16/18 Range/Units 19:28 02:52 02:52 AST 71 H (14-36) U/L CK-MB (CK-2) 7.3 H* 4.5 H* (0.0-2.4) ng/mL Troponin I 0.091 H* 0.073 H* (0.000-0.034) ng/mL Lipids 01/16/18 Range/Units 02:52 Triglycerides 114 (<150) mg/dL Cholesterol 172 (<200) mg/dL HDL Cholesterol 48 (40-60) mg/dL CBC 01/16/18 Range/Units 02:52 WBC 7.2 (3.8-10.6) k/uL RBC 4.03 (3.80-5.40) m/uL Hgb 12.7 (11.4-16.0) gm/dL Hct 39.3 (34.0-46.0) % Plt Count 176 (150-450) k/uL Comprehensive Metabolic Panel 01/16/18 Range/Units 02:52 Sodium 130 L (137-145) mmol/L Potassium 2.5 L* (3.5-5.1) mmol/L Chloride 79 L* (98-107) mmol/L Carbon Dioxide 38 H (22-30) mmol/L BUN 87 H* (7-17) mg/dL Creatinine 1.10 H (0.52-1.04) mg/dL Glucose 105 H (74-99) mg/dL Calcium 9.5 (8.4-10.2) mg/dL AST 71 H (14-36) U/L ALT 42 (9-52) U/L Alkaline Phosphatase 102 (38-126) U/L Total Protein 6.4 (6.3-8.2) g/dL Albumin 3.8 (3.5-5.0) g/dL Current Medications Generic Name Dose Route Start Last Admin Trade Name Freq PRN Reason Stop Dose Admin Acetaminophen 650 mg 01/15/18 15:27 01/16/18 14:36 Tylenol Tab PO 650 mg Q6HR PRN Administration Mild Pain or Fever > 100.5 Allopurinol 300 mg 01/17/18 09:00 Zyloprim PO DAILY [facility] Alprazolam 0.5 mg 01/15/18 17:31 Xanax PO BID PRN Anxiety Aspirin 325 mg 01/16/18 09:00 01/16/18 12:16 Aspirin PO 325 mg DAILY [facility] Administration Atenolol 50 mg 01/16/18 09:00 01/16/18 08:58 Tenormin PO 50 mg DAILY [facility] Administration Atorvastatin Calcium 20 mg 01/17/18 09:00 Lipitor PO DAILY [facility] Doxepin HCl 50 mg 01/15/18 21:00 01/15/18 19:49 Sinequan PO 50 mg HS [facility] Administration Enoxaparin Sodium 30 mg 01/16/18 13:45 01/16/18 15:49 Lovenox SQ 30 mg DAILY [facility] Administration Famotidine 20 mg 01/16/18 16:00 01/16/18 15:49 Pepcid PO 20 mg DAILY [facility] Administration Furosemide 40 mg 01/17/18 09:00 Lasix PO DAILY [facility] Sodium Chloride 1,000 mls @ 75 mls/hr 01/16/18 06:00 01/16/18 15:49 Saline 0.9% IV 75 mls/hr .[id number] [facility] Administration Levothyroxine Sodium 300 mcg 01/17/18 06:30 Synthroid PO DAILY@0630 [facility] Losartan Potassium 25 mg 01/17/18 09:00 Cozaar PO DAILY [facility] Miscellaneous Information 1 each 01/16/18 08:49 Potassium Per Protocol MISCELLANE DAILY PRN Per Protocol Protocol Neomycin/Polymyxin/Bacitracin 1 applic 01/16/18 11:26 Triple Antibiotic Ointment TOPICAL TID PRN Skin Irritation Nitroglycerin 0.4 mg 01/15/18 15:29 Nitrostat SUBLINGUAL Q5M PRN Chest Pain Ondansetron HCl 4 mg 01/15/18 15:27 Zofran IVP Q8HR PRN Nausea And Vomiting Oxybutynin Chloride 10 mg 01/16/18 21:00 Ditropan Xl PO BID [facility] Potassium Citrate 20 meq 01/17/18 09:00 Urocit-K PO DAILY [facility] Intake and Output 01/16/18 01/16/18 01/16/18 06:59 14:59 22:59 Intake Total 300 686 440 Output Total 100 Balance 200 686 440 Intake: Oral 300 686 440 Output: Urine 100 Other: Voiding Method Bedside Commode Bedside Commode # Voids 1 2 Weight 91.5 kg 91.5 kg Patient Weight 01/17/18 06:59 Weight 91.5 kg 01/16/18 02:52 01/16/18 02:52 EKG Interpretations (text) Atrial fibrillation with a diffuse ST-T wave normalities Assessment and Plan (1) History of coronary artery disease Current Visit: Yes Status: Acute Code(s): Z86.79 - PERSONAL HISTORY OF OTHER DISEASES OF THE CIRCULATORY SYSTEM SNOMED Code(s): 745313298 (2) ANTONIETA (acute kidney injury) Current Visit: Yes Status: Acute Code(s): N17.9 - ACUTE KIDNEY FAILURE, UNSPECIFIED SNOMED Code(s): 10969433 (3) Elevated troponin Current Visit: Yes Status: Acute Code(s): R74.8 - ABNORMAL LEVELS OF OTHER SERUM ENZYMES SNOMED Code(s): 396326285 (4) Fall Current Visit: Yes Status: Acute Code(s): W19.XXXA - UNSPECIFIED FALL, INITIAL ENCOUNTER SNOMED Code(s): 1124184 (5) Hypochloremia Current Visit: Yes Status: Acute Code(s): E87.8 - OTH DISORDERS OF ELECTROLYTE AND FLUID BALANCE, NEC SNOMED Code(s): 72626887 (6) Hypokalemia Current Visit: Yes Status: Acute Code(s): E87.6 - HYPOKALEMIA SNOMED Code( s): 98114637 (7) Hyponatremia Current Visit: Yes Status: Acute Code(s): E87.1 - HYPO-OSMOLALITY AND HYPONATREMIA SNOMED Code(s): 86012523 Plan: Continue with current management with gentle hydration and correcting electrolytes. We will get an echocardiogram. There doesn't seem to be any evidence of acute coronary syndrome. Thank you
[2018-01-16 19:09] LABS: Calcium 9.5 mg/dL (8.4-10.2); Potassium 4.2 mmol/L (3.5-5.1)
[2018-01-16 21:00] LABS: Glucose,Whole Blood 136 mg/dL (75-99)
[2018-01-16] MEDS: OXYBUTYNIN 10 MG TAB.ER.24 PO SCH (21:22)
[2018-01-16] MEDS: DOXEPIN 25 MG CAP PO SCH (22:41)
[2018-01-17 06:05] LABS: Glucose,Whole Blood 95 mg/dL (75-99)
[2018-01-17 06:18] LABS: Basophils % (A) 1 %; Eosinophils # (A) 0.2 k/uL (0-0.7); Eosinophils % (A) 4 %; HCT 38.5 % (34.0-46.0); HGB 12.1 gm/dL (11.4-16.0); Hypochromasia Slight; Lymphocytes # (A) 1.1 k/uL (1.0-4.8); Lymphocytes % (A) 26 %; MCH 31.4 pg (25.0-35.0); MCHC 31.5 g/dL (31.0-37.0); MCV 99.7 fL (80.0-100.0); Macrocytosis Slight; Mean Platelet Volume 6.8; Monocytes # (A) 0.3 k/uL (0-1.0); Monocytes % (A) 7 %; Neutrophils # (A) 2.6 k/uL (1.3-7.7); Neutrophils % (A) 61 %; Platelet Count 154 k/uL (150-450); RBC 3.86 m/uL (3.80-5.40); WBC 4.2 k/uL (3.8-10.6)
[2018-01-17 06:27] LABS: Calcium 9.4 mg/dL (8.4-10.2)
[2018-01-17] MEDS: LEVOTHYROXINE 100 MCG TAB PO SCH (06:38)
[2018-01-17] MEDS: ENOXAPARIN 30 MG/0.3 ML SYRINGE SQ SCH (08:30)
[2018-01-17] MEDS: ATENOLOL 50 MG TAB PO SCH (08:30)
[2018-01-17] MEDS: OXYBUTYNIN 10 MG TAB.ER.24 PO SCH ×2 (08:30→16:51)
[2018-01-17] MEDS: DOXEPIN 25 MG CAP PO SCH (08:30)
[2018-01-17] MEDS: FAMOTIDINE 20 MG TAB PO SCH (08:30)
[2018-01-17] MEDS: FUROSEMIDE 20 MG TAB PO SCH (08:30)
[2018-01-17] MEDS: ATORVASTATIN 20 MG TAB PO SCH (08:30)
[2018-01-17] MEDS: ASPIRIN 325 MG TAB PO SCH (08:30)
[2018-01-17] MEDS: LOSARTAN 25 MG TAB PO SCH (08:31)
[2018-01-17] MEDS: ALLOPURINOL 300 MG TAB PO SCH (08:31)
[2018-01-17] MEDS: POTASSIUM CITRATE 10 MEQ TABLET.ER PO SCH (08:31)
[2018-01-17] MEDS ORDERED: POTASSIUM CITRATE 10 MEQ TABLET.ER PO SCH (09:00)
[2018-01-17 11:15] LABS: Glucose,Whole Blood 114 mg/dL (75-99)
[2018-01-17 13:17] LABS: Hemoglobin A1C 6.2 % (4.0-6.0)
--- NOTE | 2018-01-17 13:52 | P.PN ---
Subjective Progress Note Date: 01/17/18 This is a 77-year-old female with history of coronary artery disease, diabetes mellitus, hypertension and also hypothyroidism. This patient is admitted to the hospital following a fall. Patient did not have any syncopal episodes. She denied any chest pain, dizziness or shortness of breath. Apparently patient was seen in primary care physician's office with increasing swelling and edema. She was started on metolazone 2.5 mg daily along with Lasix. Patient appears to have become dehydrated with high BUN and also low potassium. Her troponin value was elevated but her creatinine was 1.49 on admission with be enough 101. EKG showed evidence of atrial fibrillation with controlled ventricular response and diffuse ST-T abnormalities. At this point it appears that patient's symptoms are mostly related to dehydration and electrolyte abnormalities. Patient is being gently hydrated. Echo is being obtained 01/17/2018 Patient seen and examined this morning, she is sitting up in the chair at bedside, overall feeling significantly better. Blood pressure 134/60 with a heart rate in the 60s, 100% on room air. CBC normal, sodium 135, potassium 4.0 , BUN 57, creatinine 1.0. Echocardiogram with Doppler study remains pending. Objective - Vital Signs Vital signs: Vital Signs Temp 96.6 F L 01/17/18 08:00 Pulse 57 L 01/17/18 12:00 Resp 16 01/17/18 12:00 BP 103/59 01/17/18 12:00 Pulse Ox 98 01/17/18 12:00 Intake & Output 01/16/18 01/17/18 01/17/18 18:59 06:59 18:59 Intake Total 1126 975 360 Output Total 250 700 Balance 1126 725 -340 Weight 91.5 kg 83.5 kg Intake: IV 975 Sodium Chloride 0.9% 1, 975 000 ml @ 75 mls/hr IV . [id number] [facility] Rx#:[id number] Oral 1126 360 Output: Urine 250 700 Other: Voiding Method Bedside Commode Toilet Toilet # Voids 2 1 - Exam GENERAL EXAM: Patient is alert and oriented and doesn't appear to be in any acute distress HEENT: Normocephalic. Normal reaction of pupils, equal size, normal range of extraocular motion. No erythema or exudates in the throat. NECK: No masses, no nuchal rigidity. CHEST: No chest wall deformity. LUNGS: Equal air entry with no crackles or wheeze. HEART: S1 and S2 normal with no audible mumurs or gallops. Regular rhythm, femorals equal on both sides.. ABDOMEN: No hepatosplenomegaly, normal bowel sounds, no guarding or rigidity. SKIN: No rashes CENTRAL NERVOUS SYSTEM: No focal deficits. EXTREMITIES: Edema present. - Labs CBC & Chem 7: 01/17/18 05:47 01/17/18 05:47 Labs: Abnormal Lab Results - Last 24 Hours (Table) 01/16/18 01/16/18 01/17/18 Range/Units 18:30 20:59 05:47 Sodium 132 L 135 L (137-145) mmol/L Chloride 87 L 94 L (98-107) mmol/L Carbon Dioxide 35 H 32 H (22-30) mmol/L BUN 72 H 57 H (7-17) mg/dL Creatinine 1.17 H (0.52-1.04) mg/dL Glucose 120 H (74-99) mg/dL POC Glucose (mg/dL) 136 H (75-99) mg/dL 01/17/18 Range/Units 11:11 Sodium (137-145) mmol/L Chloride (98-107) mmol/L Carbon Dioxide (22-30) mmol/L BUN (7-17) mg/dL Creatinine (0.52-1.04) mg/dL Glucose (74-99) mg/dL POC Glucose (mg/dL) 114 H (75-99) mg/dL Assessment and Plan Plan: Assessment and plan Plan: 1. Acute kidney injury with azotemia secondary to dehydration, from diuretic use as well as diminished oral intake, 2. Fall with contusion to face, abrasion in the left eyebrow, and nasal bridge , and chin and mouth. CAT scan of the brain and cervical spine CT failed to reveal any acute fractures 3. Diabetes mellitus type 2 4. Breast cancer 5. Hypothyroidism, 6.Hyponatremia 7. Hypertension, 8. Gout 9. Chronic pain, 10. Elevated troponin, not consistent with acute coronary syndrome, likely secondary to supply and demand mismatch. echocardiogram pending 11. Electrolyte abnormality with hyponatremia, hypokalemia, hypochloremia, and metabolic alkalosis secondary to diuretic use, metolazone is on hold, continue IV hydration, replacement of potassium and sodium 12. Hyperlipidemia, Plan We will await the results of the echocardiogram with Doppler study. Continue hydrating the patient, check a.m. labs. DNP note has been reviewed, I agree with a documented findings and plan of care. Patient was seen and examined.
--- NOTE | 2018-01-17 15:30 | P.PN ---
Subjective Progress Note Date: 01/17/18 This 77-year-old pleasant lady known to my practice. 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 Patient had fallen at home, patient did not pass out. Patient has diminished appetite, not eating, we have seen her in the office 12/25/2017, secondary to increase in leg swelling, and pruritus. We have given her prednisone, and adjusted her diuretic, And kept Her Lasix at 40 mg 3 times a day, and added metolazone 2.5 mg daily She now presents to emergency room with the above complaints, evaluation the ER included a sodium of 1:30, potassium 2.5, BUN 87, creatinine is 1.10, glucose of 105 liver function test looks okay, no leukocytosis, urinalysis shows 5 WBC, negative for RBCs. Troponin was 0.09. Cardiology was requested, and echocardiogram to be done, metolazone is on hold metformin and Lasix, gentle hydration, replacement of electrolytes 01/17 patient is doing well kidney function gradually improving. Echocardiogram still pending. PT evaluation suggest patient may benefit from subacute rehab as patient has a risk of falling multiple bruises from previous falls Objective - Vital Signs Vital signs: Vital Signs Temp 96.6 F L 01/17/18 08:00 Pulse 57 L 01/17/18 12:00 Resp 16 01/17/18 12:00 BP 103/59 01/17/18 12:00 Pulse Ox 98 01/17/18 12:00 Intake & Output 01/16/18 01/17/18 01/17/18 18:59 06:59 18:59 Intake Total 1126 975 360 Output Total 250 700 Balance 1126 725 -340 Weight 91.5 kg 83.5 kg Intake: IV 975 Sodium Chloride 0.9% 1, 975 000 ml @ 75 mls/hr IV . [id number] [facility] Rx#:[id number] Oral 1126 360 Output: Urine 250 700 Other: Voiding Method Bedside Commode Toilet Toilet # Voids 2 1 - Exam - Constitutional General appearance: cooperative, no acute distress, obese, bruise on the forehead from recent fall - EENT Eyes: anicteric sclerae, EOMI, PERRLA, dentition normal, normal appearance ENT: NA/AT, normal oropharynx - Respiratory Respiratory: bilateral: CTA, negative: diminished, dullness, rales, rhonchi, wheezing - Cardiovascular Rhythm: regular Heart sounds: normal: S1, S2 Abnormal Heart Sounds: no systolic murmur, no diastolic murmur, no rub, no S3 Gallop, no S4 Gallop, no click, no other - Gastrointestinal General gastrointestinal: normal bowel sounds, soft - Integumentary Integumentary: decreased turgor, normal - Neurologic Neurologic: CNII-XII intact - Musculoskeletal Musculoskeletal: generalized weakness, strength equal bilaterally - Psychiatric Psychiatric: A&O x's 3, appropriate affect, intact judgment & insight - Labs CBC & Chem 7: 01/18/18 06:12 01/18/18 06:12 Labs: Abnormal Lab Results - Last 24 Hours (Table) 01/16/18 01/16/18 01/17/18 Range/Units 18:30 20:59 05:47 Sodium 132 L (137-145) mmol/L Chloride 87 L (98-107) mmol/L Carbon Dioxide 35 H (22-30) mmol/L BUN 72 H (7-17) mg/dL Creatinine 1.17 H (0.52-1.04) mg/dL Glucose 120 H (74-99) mg/dL POC Glucose (mg/dL) 136 H (75-99) mg/dL Hemoglobin A1c 6.2 H (4.0-6.0) % 01/17/18 01/17/18 Range/Units 05:47 11:11 Sodium 135 L (137-145) mmol/L Chloride 94 L (98-107) mmol/L Carbon Dioxide 32 H (22-30) mmol/L BUN 57 H (7-17) mg/dL Creatinine (0.52-1.04) mg/dL Glucose (74-99) mg/dL POC Glucose (mg/dL) 114 H (75-99) mg/dL Hemoglobin A1c (4.0-6.0) % Assessment and Plan Plan: 1. Acute kidney injury with azotemia secondary to dehydration, from diuretic use as well as diminished oral intake, patient would be hydrated, electrodes will be replaced, hold Lasix, hold metolazone and hold metformin.. 2. Fall with contusion to face, abrasion in the left eyebrow, and nasal bridge , and chin and mouth. Would care to be provided, CAT scan of the brain and cervical spine CT failed to reveal any acute fractures 3. Diabetes mellitus type 2 hold metformin continue on Accu-Cheks with NovoLog scale, her A1c to be done one the hospital 5. Breast cancer with negative metastatic disease on brain CT 6. Hypothyroidism, TSH to be evaluated 7. Hypertension, patient currently is normotensive, hold losartan 25 mg in the morning 8. Gout on allopurinol 300 mg daily we'll going to hold as patient comes in with acute kidney injury, protect from interstitial nephritis 9. Chronic pain, on doxepin 50 mg at bedtime and Cymbalta 60 mg daily 10. Elevated troponin, echocardiogram to be done, cardiology in consultation, 11. Electrolyte abnormality with hyponatremia, hypokalemia, hypochloremia, and metabolic alkalosis secondary to diuretic use, metolazone is on hold, continue IV hydration, replacement of potassium and sodium 12. Hyperlipidemia, resume Lipitor, we would monitor for rhabdo, especially with the fall 13. Generalized edema bilateral lower extremity, this has improved, Lasix and metolazone at currently on hold secondary to azotemia and we will resume Lasix 40 mg every morning, we would hold off Zaroxolyn post discharge, and reevaluate as an outpatient 14. Hyponatremia most likely secondary to diuretic use, and possibly from diminished oral intake, and hypervolemia. Serum osmolality and urine osmolality to be done. 15. Debility, . Balance pre-existing prior to admission, falls at home prior to admission, patient to be seen by physical therapy and occupational therapy, patient might need subacute rehabilitation, however patient refused at this time , patient might need inpatient rehab or home therapies. Patient currently resides at [facility] facility Discharge planning to be determined. Home therapy is requested by the patient however patient might need skilled or subacute PT OT requested, next DVT prophylaxis Lovenox 30 GI prophylaxis with Pepcid
[2018-01-17 16:34] LABS: Glucose,Whole Blood 74 mg/dL (75-99)
[2018-01-17] MEDS: SODIUM CHLORIDE 0.9% 1,000 ML IV SCH ×2 (19:44→20:11)
[2018-01-17 21:16] LABS: Glucose,Whole Blood 228 mg/dL (75-99)
[2018-01-18 05:47] LABS: Glucose,Whole Blood 100 mg/dL (75-99)
[2018-01-18] MEDS: LEVOTHYROXINE 100 MCG TAB PO SCH (05:56)
[2018-01-18 06:42] LABS: Basophils % (A) 1 %; Eosinophils # (A) 0.2 k/uL (0-0.7); Eosinophils % (A) 4 %; HCT 38.5 % (34.0-46.0); Lymphocytes # (A) 1.1 k/uL (1.0-4.8); Lymphocytes % (A) 25 %; MCH 31.2 pg (25.0-35.0); MCHC 31.2 g/dL (31.0-37.0); MCV 99.8 fL (80.0-100.0); Macrocytosis Slight; Mean Platelet Volume 6.9; Monocytes # (A) 0.3 k/uL (0-1.0); Monocytes % (A) 6 %; Neutrophils # (A) 2.8 k/uL (1.3-7.7); Neutrophils % (A) 63 %; Platelet Count 143 k/uL (150-450); RBC 3.86 m/uL (3.80-5.40); RDW 15.6 % (11.5-15.5); WBC 4.5 k/uL (3.8-10.6)
[2018-01-18 06:59] LABS: Calcium 9.2 mg/dL (8.4-10.2); Potassium 3.7 mmol/L (3.5-5.1)
[2018-01-18] MEDS: OXYBUTYNIN 10 MG TAB.ER.24 PO SCH ×2 (08:10→19:48)
[2018-01-18] MEDS: ALLOPURINOL 300 MG TAB PO SCH (08:10)
[2018-01-18] MEDS: ENOXAPARIN 30 MG/0.3 ML SYRINGE SQ SCH (08:10)
[2018-01-18] MEDS: ASPIRIN 325 MG TAB PO SCH (08:10)
[2018-01-18] MEDS: FUROSEMIDE 20 MG TAB PO SCH (08:10)
[2018-01-18] MEDS: ATENOLOL 50 MG TAB PO SCH (08:11)
[2018-01-18] MEDS: ATORVASTATIN 20 MG TAB PO SCH (08:11)
[2018-01-18] MEDS: LOSARTAN 25 MG TAB PO SCH (08:11)
[2018-01-18] MEDS: POTASSIUM CITRATE 10 MEQ TABLET.ER PO SCH (08:11)
[2018-01-18] MEDS: FAMOTIDINE 20 MG TAB PO SCH (08:11)
--- NOTE | 2018-01-18 08:26 | P.PN ---
Subjective Progress Note Date: 01/18/18 This 77-year-old pleasant lady known to my practice. 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 Patient had fallen at home, patient did not pass out. Patient has diminished appetite, not eating, we have seen her in the office 12/25/2017, secondary to increase in leg swelling, and pruritus. We have given her prednisone, and adjusted her diuretic, And kept Her Lasix at 40 mg 3 times a day, and added metolazone 2.5 mg daily She now presents to emergency room with the above complaints, evaluation the ER included a sodium of 1:30, potassium 2.5, BUN 87, creatinine is 1.10, glucose of 105 liver function test looks okay, no leukocytosis, urinalysis shows 5 WBC, negative for RBCs. Troponin was 0.09. Cardiology was requested, and echocardiogram to be done, metolazone is on hold metformin and Lasix, gentle hydration, replacement of electrolytes 01/17 patient is doing well kidney function gradually improving. Echocardiogram still pending. PT evaluation suggest patient may benefit from subacute rehab as patient has a risk of falling multiple bruises from previous falls 01/18 patient is asymptomatic. Examined bedside. Denies any chest pain or shortness of breath. Lower extremity edema worsening since yesterday due to being fluid. We will discontinue IV fluids today. BUN improved to 37 from 101. Lasix initiated at 40 mg by mouth daily. Echocardiogram pending Objective - Vital Signs Vital signs: Vital Signs Temp 96.9 F L 01/18/18 08:00 Pulse 74 01/18/18 08:00 Resp 16 01/18/18 08:00 BP 108/66 01/18/18 08:00 Pulse Ox 98 01/18/18 08:00 Intake & Output 01/17/18 01/18/18 01/18/18 18:59 06:59 18:59 Intake Total 600 480 240 Output Total 700 800 Balance -100 -320 240 Weight 89.3 kg Intake: Oral 600 480 240 Output: Urine 700 800 Other: Voiding Method Toilet Toilet # Voids 3 - Exam - Constitutional General appearance: cooperative, no acute distress, obese, bruise on the forehead from recent fall - EENT Eyes: anicteric sclerae, EOMI, PERRLA, dentition normal, normal appearance ENT: NA/AT, normal oropharynx - Respiratory Respiratory: bilateral: CTA, negative: diminished, dullness, rales, rhonchi, wheezing - Cardiovascular Rhythm: regular Heart sounds: normal: S1, S2 Abnormal Heart Sounds: no systolic murmur, no diastolic murmur, no rub, no S3 Gallop, no S4 Gallop, no click, no other - Gastrointestinal General gastrointestinal: normal bowel sounds, soft - Integumentary Integumentary: decreased turgor, normal - Neurologic Neurologic: CNII-XII intact - Musculoskeletal Musculoskeletal: generalized weakness, strength equal bilaterally - Psychiatric Psychiatric: A&O x's 3, appropriate affect, intact judgment & insight - Labs CBC & Chem 7: 01/18/18 06:12 01/18/18 06:12 Labs: Abnormal Lab Results - Last 24 Hours (Table) 01/17/18 01/17/18 01/17/18 Range/Units 05:47 11:11 16:21 RDW (11.5-15.5) % Plt Count (150-450) k/uL Sodium (137-145) mmol/L BUN (7-17) mg/dL POC Glucose (mg/dL) 114 H 74 L (75-99) mg/dL Hemoglobin A1c 6.2 H (4.0-6.0) % 01/17/18 01/18/18 01/18/18 Range/Units 20:59 05:46 06:12 RDW 15.6 H (11.5-15.5) % Plt Count 143 L (150-450) k/uL Sodium (137-145) mmol/L BUN (7-17) mg/dL POC Glucose (mg/dL) 228 H 100 H (75-99) mg/dL Hemoglobin A1c (4.0-6.0) % 01/18/18 Range/Units 06:12 RDW (11.5-15.5) % Plt Count (150-450) k/uL Sodium 135 L (137-145) mmol/L BUN 36 H (7-17) mg/dL POC Glucose (mg/dL) (75-99) mg/dL Hemoglobin A1c (4.0-6.0) % Assessment and Plan Plan: 1. Acute kidney injury with azotemia secondary to dehydration, from diuretic use as well as diminished oral intake, patient would be hydrated, electrodes will be replaced, hold metolazone and hold metformin. lasix restarted at 40 mg po daily. IV fluids d/eric 2. Fall with contusion to face, abrasion in the left eyebrow, and nasal bridge , and chin and mouth. Would care to be provided, CAT scan of the brain and cervical spine CT failed to reveal any acute fractures 3. Diabetes mellitus type 2 hold metformin continue on Accu-Cheks with NovoLog scale, her A1c to be done one the hospital 5. Breast cancer with negative metastatic disease on brain CT 6. Hypothyroidism, TSH to be evaluated 7. Hypertension, patient currently is normotensive, hold losartan 25 mg in the morning 8. Gout on allopurinol 300 mg daily we'll going to hold as patient comes in with acute kidney injury, protect from interstitial nephritis 9. Chronic pain, on doxepin 50 mg at bedtime and Cymbalta 60 mg daily 10. Elevated troponin, echocardiogram to be done, cardiology in consultation, 11. Electrolyte abnormality with hyponatremia, hypokalemia, hypochloremia, and metabolic alkalosis secondary to diuretic use, metolazone is on hold, continue IV hydration, replacement of potassium and sodium 12. Hyperlipidemia, resume Lipitor, we would monitor for rhabdo, especially with the fall 13. Generalized edema bilateral lower extremity, this has improved, Lasix and metolazone at currently on hold secondary to azotemia and we will resume Lasix 40 mg every morning, we would hold off Zaroxolyn post discharge, and reevaluate as an outpatient 14. Hyponatremia most likely secondary to diuretic use, and possibly from diminished oral intake, and hypervolemia. Serum osmolality and urine osmolality to be done. 15. Debility, . Balance pre-existing prior to admission, falls at home prior to admission, patient to be seen by physical therapy and occupational therapy, patient might need subacute rehabilitation, patient is willing to try it for few weeks. Patient currently resides at [facility] facility Discharge planning to be determined. Home therapy is requested by the patient however patient might need skilled or subacute PT OT requested, next DVT prophylaxis Lovenox 30 GI prophylaxis with Pepcid
--- NOTE | 2018-01-18 10:59 | ECHOF ---
Referral Reason:chf MEASUREMENTS -------- HEIGHT: 165.1 cm WEIGHT: 83.5 kg BP: 103/59 IVSd: 1.2 cm (0.6 - 1.1) LVIDd: 3.9 cm (3.9 - 5.3) LVPWd: 1.2 cm (0.6 - 1.1) EDV(Teich): 67 ml IVSs: 1.6 cm LVIDs: 2.9 cm LVPWs: 1.5 cm %IVS Thck: 32 % ESV(Teich): 31 ml EF(Teich): 53 % %FS: 27 % SV(Teich): 35 ml LA Diam: 4.2 cm (2.7 - 3.8) RVIDd: 2.8 cm (< 3.3) IVC: 19.48 mm LALs A4C: 5.5 cm LAAs A4C: 19.0 cm LAESV A-L A4C: 56 ml LAESV MOD A4C: 52 ml LALs A2C: 6.7 cm LAAs A2C: 20.3 cm LAESV A-L A2C: 52 ml LAESV MOD A2C: 50 ml LAESV(A-L): 60 ml LAESV Index (A-L): 31.43 ml/m Ao Diam: 3.0 cm (2.0 - 3.7) AV Cusp: 1.9 cm (1.5 - 2.6) EPSS: 0.7 cm MV DecT: 204 ms MV PHT: 54 ms MVA By PHT: 4.1 cm MV Vmax: 1.34 m/s MV Vmean: 0.48 m/s MV maxP.21 mmHg MV meanP.39 mmHg MV VTI: 27.5 cm AV Vmax: 1.75 m/s AV maxP.46 mmHg AV Vmax: 1.76 m/s AV Vmean: 1.08 m/s AV maxP.53 mmHg AV meanP.50 mmHg AV Env.Ti: 320 ms AV VTI: 34.7 cm TR Vmax: 2.72 m/s TR maxP.70 mmHg RAP: 5.00 mmHg RVSP: 34.70 mmHg MV EF SLOPE: 117.54 mm/s (70 - 150) MV EXCURSION: 18.87 mm (> 18.000) FINDINGS -------- Atrial fibrillation. This was a technically good study. The left ventricular size is normal. There is borderline concentric left ventricular hypertrophy. Overall left ventricular systolic function is mildly impaired with, an EF between 45 - 50 %. The right ventricle is normal in size. LA is midly dilated 29-33ml/m2. The right atrium is normal in size. There is mild aortic valve sclerosis. There is mild aortic regurgitation. Mild mitral annular calcification present. Mild mitral regurgitation is present. Mild tricuspid regurgitation present. There is mild pulmonary hypertension. The right ventricular systolic pressure, as measured by Doppler, is 34.70mmHg. Moderate pulmonic regurgitation. The aortic root size is normal. Normal inferior vena cava with normal inspiratory collapse consistent with estimated right atrial pre ssure of 5 mmHg. There is no pericardial effusion. CONCLUSIONS -------- 1. Atrial fibrillation. 2. This was a technically good study. 3. The left ventricular size is normal. 4. There is borderline concentric left ventricular hypertrophy. 5. Overall left ventricular systolic function is mildly impaired with, an EF between 45 - 50 %. 6. The right ventricle is normal in size. 7. LA is midly dilated 29-33ml/m2. 8. The right atrium is normal in size. 9. There is mild aortic valve sclerosis. 10. There is mild aortic regurgitation. 11. Mild mitral annular calcification present. 12. Mild mitral regurgitation is present. 13. Mild tricuspid regurgitation present. 14. There is mild pulmonary hypertension. 15. The right ventricular systolic pressure, as measured by Doppler, is 34.70mmHg. 16. Moderate pulmonic regurgitation. 17. The aortic root size is normal. 18. Normal inferior vena cava with normal inspiratory collapse consistent with estimated right atrial pressure of 5 mmHg. 19. There is no pericardial effusion. ECONOMIC HISTORIAN: Rachel Hines RDCS
[2018-01-18 11:27] LABS: Glucose,Whole Blood 108 mg/dL (75-99)
[2018-01-18 16:25] LABS: Glucose,Whole Blood 139 mg/dL (75-99)
[2018-01-18] MEDS: DOXEPIN 25 MG CAP PO SCH (19:48)
[2018-01-18] MEDS: ACETAMINOPHEN TAB 325 MG TAB PO PRN (23:50)
[2018-01-19] MEDS: LEVOTHYROXINE 100 MCG TAB PO SCH (06:04)
[2018-01-19 06:08] LABS: Glucose,Whole Blood 115 mg/dL (75-99)
[2018-01-19 06:38] LABS: Basophils % (A) 1 %; Eosinophils # (A) 0.2 k/uL (0-0.7); Eosinophils % (A) 4 %; HCT 41.1 % (34.0-46.0); HGB 12.9 gm/dL (11.4-16.0); Lymphocytes % (A) 20 %; MCH 31.1 pg (25.0-35.0); MCHC 31.5 g/dL (31.0-37.0); MCV 98.9 fL (80.0-100.0); Macrocytosis Slight; Mean Platelet Volume 6.6; Monocytes # (A) 0.3 k/uL (0-1.0); Monocytes % (A) 6 %; Neutrophils # (A) 3.5 k/uL (1.3-7.7); Neutrophils % (A) 66 %; Platelet Count 178 k/uL (150-450); RBC 4.16 m/uL (3.80-5.40); RDW 15.8 % (11.5-15.5); WBC 5.3 k/uL (3.8-10.6)
[2018-01-19 06:52] LABS: Calcium 9.9 mg/dL (8.4-10.2); Potassium 3.7 mmol/L (3.5-5.1)
--- NOTE | 2018-01-19 08:20 | PN ---
PROGRESS NOTE This patient is admitted with a history of fall, syncope and hypotension. Patient was in acute on chronic renal failure. The patient is feeling better. She denies any chest pain or shortness of breath. Her vital signs remain stable. BUN and creatinine are improved. First and second heart sounds are normal. Lungs are clinically clear to auscultation and percussion. Blood pressure is stable. The patient is started on Lasix 40 mg daily. Patient's echocardiogram reveals overall ejection fraction in the range of 45-50 percent. We will check for any orthostatic hypotension and continue the rest of the medications. MMODL / IJN: [id number] /
[2018-01-19] MEDS: POTASSIUM CITRATE 10 MEQ TABLET.ER PO SCH (09:00)
[2018-01-19] MEDS: ENOXAPARIN 30 MG/0.3 ML SYRINGE SQ SCH (09:00)
[2018-01-19] MEDS: ASPIRIN 325 MG TAB PO SCH (09:00)
[2018-01-19] MEDS: LOSARTAN 25 MG TAB PO SCH (09:00)
[2018-01-19] MEDS: OXYBUTYNIN 10 MG TAB.ER.24 PO SCH ×2 (09:00→20:54)
[2018-01-19] MEDS: FAMOTIDINE 20 MG TAB PO SCH (09:00)
[2018-01-19] MEDS: FUROSEMIDE 20 MG TAB PO SCH (09:00)
[2018-01-19] MEDS: ALLOPURINOL 300 MG TAB PO SCH (09:00)
[2018-01-19] MEDS: ATORVASTATIN 20 MG TAB PO SCH (09:00)
[2018-01-19] MEDS: ATENOLOL 50 MG TAB PO SCH (09:00)
[2018-01-19] MEDS ORDERED: SENNOSIDES 8.6 MG TAB PO PRN (09:21)
--- NOTE | 2018-01-19 09:26 | P.PN ---
Subjective Progress Note Date: 01/19/18 This 77-year-old pleasant lady known to my practice. 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 Patient had fallen at home, patient did not pass out. Patient has diminished appetite, not eating, we have seen her in the office 12/25/2017, secondary to increase in leg swelling, and pruritus. We have given her prednisone, and adjusted her diuretic, And kept Her Lasix at 40 mg 3 times a day, and added metolazone 2.5 mg daily She now presents to emergency room with the above complaints, evaluation the ER included a sodium of 1:30, potassium 2.5, BUN 87, creatinine is 1.10, glucose of 105 liver function test looks okay, no leukocytosis, urinalysis shows 5 WBC, negative for RBCs. Troponin was 0.09. Cardiology was requested, and echocardiogram to be done, metolazone is on hold metformin and Lasix, gentle hydration, replacement of electrolytes 01/17 patient is doing well kidney function gradually improving. Echocardiogram still pending. PT evaluation suggest patient may benefit from subacute rehab as patient has a risk of falling multiple bruises from previous falls 01/19 patient is doing well today kidney function has improved drastically. Lasix initiated yesterday. Patient has a lower extremity swelling that has worsened since yesterday. Echo Cardizem suggested EF of 45-50% with no wall abnormality Objective - Vital Signs Vital signs: Vital Signs Temp 97.6 F 01/19/18 08:00 Pulse 68 01/19/18 08:00 Resp 18 01/19/18 08:00 BP 95/63 01/19/18 08:00 Pulse Ox 100 01/19/18 08:00 Intake & Output 01/18/18 01/19/18 01/19/18 18:59 06:59 18:59 Intake Total 702 960 240 Output Total 600 0 Balance 102 960 240 Weight 89.7 kg Intake: Oral 702 960 240 Output: Urine 600 0 Other: Voiding Method Toilet Toilet Toilet # Voids 4 - Exam - Constitutional General appearance: cooperative, no acute distress, obese, bruise on the forehead from recent fall - EENT Eyes: anicteric sclerae, EOMI, PERRLA, dentition normal, normal appearance ENT: NA/AT, normal oropharynx - Respiratory Respiratory: bilateral: CTA, negative: diminished, dullness, rales, rhonchi, wheezing - Cardiovascular Rhythm: regular Heart sounds: normal: S1, S2 Abnormal Heart Sounds: no systolic murmur, no diastolic murmur, no rub, no S3 Gallop, no S4 Gallop, no click, lower extremity edema - Gastrointestinal General gastrointestinal: normal bowel sounds, soft - Integumentary Integumentary: decreased turgor, normal - Neurologic Neurologic: CNII-XII intact - Musculoskeletal Musculoskeletal: generalized weakness, strength equal bilaterally - Psychiatric Psychiatric: A&O x's 3, appropriate affect, intact judgment & insight - Labs CBC & Chem 7: 01/19/18 06:13 01/19/18 06:13 Labs: Abnormal Lab Results - Last 24 Hours (Table) 01/18/18 01/18/18 01/19/18 Range/Units 11:25 16:23 06:07 RDW (11.5-15.5) % Sodium (137-145) mmol/L Chloride (98-107) mmol/L Carbon Dioxide (22-30) mmol/L BUN (7-17) mg/dL Glucose (74-99) mg/dL POC Glucose (mg/dL) 108 H 139 H 115 H (75-99) mg/dL 01/19/18 01/19/18 Range/Units 06:13 06:13 RDW 15.8 H (11.5-15.5) % Sodium 136 L (137-145) mmol/L Chloride 96 L (98-107) mmol/L Carbon Dioxide 32 H (22-30) mmol/L BUN 29 H (7-17) mg/dL Glucose 104 H (74-99) mg/dL POC Glucose (mg/dL) (75-99) mg/dL Assessment and Plan Plan: 1. Acute kidney injury with azotemia secondary to dehydration, from diuretic use as well as diminished oral intake, patient would be hydrated, electrodes will be replacedhold metolazone and hold metformin.. Initiated at 40 mg by mouth daily 2. Fall with contusion to face, abrasion in the left eyebrow, and nasal bridge , and chin and mouth. Would care to be provided, CAT scan of the brain and cervical spine CT failed to reveal any acute fractures 3. Diabetes mellitus type 2 hold metformin continue on Accu-Cheks with NovoLog scale, her A1c to be done one the hospital 5. Breast cancer with negative metastatic disease on brain CT 6. Hypothyroidism, TSH normal 7. Hypertension, patient currently is normotensive, shaded on losartan 25 mg in the morning 8. Gout on allopurinol 300 mg daily we'll going to hold as patient comes in with acute kidney injury, protect from interstitial nephritis 9. Chronic pain, on doxepin 50 mg at bedtime and Cymbalta 60 mg daily 10. Elevated troponin, echocardiogram to be done, cardiology in consultation, 11. Electrolyte abnormality with hyponatremia, hypokalemia, hypochloremia, and metabolic alkalosis secondary to diuretic use, metolazone is on hold, continue IV hydration, replacement of potassium and sodium 12. Hyperlipidemia, resume Lipitor, we would monitor for rhabdo, especially with the fall 13. Generalized edema bilateral lower extremity, this has improved, Lasix and metolazone at currently on hold secondary to azotemia and we will resume Lasix 40 mg every morning, we would hold off Zaroxolyn post discharge, and reevaluate as an outpatient 14. Hyponatremia most likely secondary to diuretic use, and possibly from diminished oral intake, and hypervolemia. Serum osmolality and urine osmolality to be done. 15. Debility, . Balance pre-existing prior to admission, falls at home prior to admission, patient to be seen by physical therapy and occupational therapy, patient might need subacute rehabilitation, however patient refused at this time , patient might need inpatient rehab or home therapies. Patient currently resides at skilled nursing facility Discharge planning to be determined. Home therapy is requested by the patient however patient might need skilled or subacute PT OT requested, next DVT prophylaxis Lovenox 30 GI prophylaxis with Pepcid
[2018-01-19] MEDS ORDERED: FUROSEMIDE 40 MG TAB PO SCH (09:30)
[2018-01-19] MEDS: DOCUSATE 100 MG CAP PO SCH (10:44)
[2018-01-19 11:12] LABS: Glucose,Whole Blood 117 mg/dL (75-99)
[2018-01-19 16:08] LABS: Glucose,Whole Blood 181 mg/dL (75-99)
[2018-01-19] MEDS: DOXEPIN 25 MG CAP PO SCH (20:54)
[2018-01-19 21:05] LABS: Glucose,Whole Blood 165 mg/dL (75-99)
[2018-01-20 07:48] LABS: Glucose,Whole Blood 99 mg/dL (75-99)
[2018-01-20] MEDS ORDERED: FUROSEMIDE 40 MG TAB PO SCH (09:00)
[2018-01-20] MEDS: FAMOTIDINE 20 MG TAB PO SCH (09:09)
[2018-01-20] MEDS: ALLOPURINOL 300 MG TAB PO SCH (09:09)
[2018-01-20] MEDS: LEVOTHYROXINE 100 MCG TAB PO SCH (09:09)
[2018-01-20] MEDS: LOSARTAN 25 MG TAB PO SCH (09:09)
[2018-01-20] MEDS: ASPIRIN 325 MG TAB PO SCH (09:09)
[2018-01-20] MEDS: DOCUSATE 100 MG CAP PO SCH (09:09)
[2018-01-20] MEDS: ATENOLOL 50 MG TAB PO SCH (09:09)
[2018-01-20] MEDS: ATORVASTATIN 20 MG TAB PO SCH (09:10)
[2018-01-20] MEDS: ENOXAPARIN 30 MG/0.3 ML SYRINGE SQ SCH (09:10)
[2018-01-20] MEDS: OXYBUTYNIN 10 MG TAB.ER.24 PO SCH (09:16)
[2018-01-20] MEDS: POTASSIUM CITRATE 10 MEQ TABLET.ER PO SCH (09:17)
[2018-01-20 10:49] VITALS: BMI 32.9
[2018-01-20 11:45] LABS: Glucose,Whole Blood 114 mg/dL (75-99)
--- NOTE | 2018-01-20 14:13 | P.DS ---
Providers Date of admission: 01/15/18 16:20 Expected date of discharge: 01/20/18 Attending physician: Brii Terrazas Consults: 01/15/18 15:27 Consult Physician Stat Consulting Provider: [facility] Consult Reason/Comments: Elevated troponin Do you want consulting provider notified?: Yes Primary care physician: Brii Terrazas [facility] Course: This 77-year-old pleasant lady known to my practice. 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 Patient had fallen at home, patient did not pass out. Patient has diminished appetite, not eating, we have seen her in the office 12/25/2017, secondary to increase in leg swelling, and pruritus. We have given her prednisone, and adjusted her diuretic, And kept Her Lasix at 40 mg 3 times a day, and added metolazone 2.5 mg daily She now presents to emergency room with the above complaints, evaluation the ER included a sodium of 1:30, potassium 2.5, BUN 87, creatinine is 1.10, glucose of 105 liver function test looks okay, no leukocytosis, urinalysis shows 5 WBC, negative for RBCs. Troponin was 0.09. Cardiology was requested, and echocardiogram to be done, metolazone is on hold metformin and Lasix, gentle hydration, replacement of electrolytes 01/17 patient is doing well kidney function gradually improving. Echocardiogram still pending. PT evaluation suggest patient may benefit from subacute rehab as patient has a risk of falling multiple bruises from previous falls 01/19 patient is doing well today kidney function has improved drastically. Lasix initiated yesterday. Patient has a lower extremity swelling that has worsened since yesterday. Echocardiogram suggested EF of 45-50% with no wall abnormality 01/20: Patient has been seen by physical therapy with recommendations for either home with homecare or subacute rehab. Case management has discussed discharge plan with family and they have decided they will take the patient home and increase care at [facility]. Patient will be discharged home today in stable condition. Discharge diagnoses: 1. Acute kidney injury with azotemia secondary to dehydration from diuretic use as well as diminished oral intake 2. Fall with contusion to face, abrasion in the left eyebrow, and nasal bridge , and chin and mouth. 3. Diabetes mellitus type 2 5. Breast cancer with negative metastatic disease on brain CT 6. Hypothyroidism, TSH normal 7. Hypertension 8. Gout unspecified 9. Chronic pain 10. Elevated troponin, acute coronary syndrome ruled out by cardiology 11. Electrolyte abnormality with hyponatremia, hypokalemia, hypochloremia, and metabolic alkalosis secondary to diuretic use, 12. Hyperlipidemia 13. Generalized edema bilateral lower extremity 14. Hyponatremia most likely secondary to diuretic use 15. Debility Discharge plan: [facility] Impression and plan of care have been directed as dictated by the signing physician. Sherron Leon nurse practitioner acting as scribe for signing physician. Patient Condition at Discharge: Good Plan - Discharge Summary Discharge Rx Participant: Yes New Discharge Prescriptions: New Acetaminophen Tab [Tylenol] 650 mg PO Q6HR PRN tab PRN Reason: Mild Pain Or Fever > 100.5 Docusate [Colace] 100 mg PO DAILY PRN cap PRN Reason: Constipation Ptcoxwto-Mvrbdtneqo-Qnpt Oint [Triple Antibiotic Ointment] 1 applic TOPICAL TID PRN applic PRN Reason: Skin Irritation Sennosides [Senokot] 8.6 mg PO BID PRN tab PRN Reason: Constipation Furosemide [Lasix] 40 mg PO DAILY #30 tablet Continue Doxepin [SINEquan] 50 mg PO HS DULoxetine HCL [Cymbalta] 60 mg PO DAILY Atenolol [Tenormin] 50 mg PO DAILY Aspirin EC [Ecotrin] 325 mg PO DAILY Potassium Chloride [K-Tab ER] 10 meq PO DAILY Atorvastatin Calcium [Lipitor] 20 mg PO DAILY metFORMIN HCL 1,000 mg PO BID Losartan Potassium [Cozaar] 25 mg PO DAILY Allopurinol [Zyloprim] 300 mg PO DAILY Oxybutynin Chloride [Ditropan XL] 10 mg PO BID Levothyroxine Sodium 300 mcg PO DAILY Ferrous Sulfate [Iron] 325 mg PO DAILY Cyanocobalamin (Vitamin B-12) [Vitamin B-12] 1,000 mcg PO DAILY Changed Metolazone [Zaroxolyn] 2.5 mg PO MOWEFR #0 Discontinued Furosemide [Lasix] 40 mg PO MOWEFR Discharge Medication List DULoxetine HCL [Cymbalta] 60 mg PO DAILY 08/03/15 [History] Doxepin [SINEquan] 50 mg PO HS 08/03/15 [History] Aspirin EC [Ecotrin] 325 mg PO DAILY 08/07/15 [History] Atenolol [Tenormin] 50 mg PO DAILY 08/07/15 [History] Potassium Chloride [K-Tab ER] 10 meq PO DAILY 08/07/15 [History] Allopurinol [Zyloprim] 300 mg PO DAILY 01/15/18 [History] Atorvastatin Calcium [Lipitor] 20 mg PO DAILY 01/15/18 [History] Cyanocobalamin (Vitamin B-12) [Vitamin B-12] 1,000 mcg PO DAILY 01/15/18 [ History] Ferrous Sulfate [Iron] 325 mg PO DAILY 01/15/18 [History] Levothyroxine Sodium 300 mcg PO DAILY 01/15/18 [History] Losartan Potassium [Cozaar] 25 mg PO DAILY 01/15/18 [History] Oxybutynin Chloride [Ditropan XL] 10 mg PO BID 01/15/18 [History] metFORMIN HCL 1,000 mg PO BID 01/15/18 [History] Acetaminophen Tab [Tylenol] 650 mg PO Q6HR PRN tab 01/20/18 [Rx] Docusate [Colace] 100 mg PO DAILY PRN cap 01/20/18 [Rx] Furosemide [Lasix] 40 mg PO DAILY #30 tablet 01/20/18 [Rx] Metolazone [Zaroxolyn] 2.5 mg PO MOWEFR #0 01/20/18 [Rx] Ueioglbs-Vjdxpvyaga-Ujbv Oint [Triple Antibiotic Ointment] 1 applic TOPICAL TID PRN applic 01/20/18 [Rx] Sennosides [Senokot] 8.6 mg PO BID PRN tab 01/20/18 [Rx] Follow up Appointment(s)/Referral(s): Brii Terrazas MD [Primary Care Provider] - 01/23/18 1:30 pm Activity/Diet/Wound Care/Special Instructions: Geovani Xiong [phone] Discharge Disposition: TRANSFER TO SNF/ECF
[2018-01-20 15:05] VITALS: BP 97/57; PULSE 70; RESP 14; TEMP 97.5
== END 2018-01-20 15:20 | DRG 683 ==
LOC: EC 12:35 → 6SEL 16:20 → 3SUR 01-20 02:21
PROVIDERS: ADMIT Family Medicine; ATTEND Family Medicine
DX: N17.9 Acute kidney failure, unspecified (principal); E87.1 Hypo-osmolality and hyponatremia; E87.3 Alkalosis; E03.9 Hypothyroidism, unspecified; E11.22 Type 2 diabetes mellitus with diabetic chronic kidney disease; E78.5 Hyperlipidemia, unspecified; E86.0 Dehydration; E87.6 Hypokalemia; E87.8 Other disorders of electrolyte and fluid balance, not elsewhere classified; G89.29 Other chronic pain; I12.9 Hypertensive chronic kidney disease with stage 1 through stage 4 chronic kidney disease, or unspecified chronic kidney disease; I25.10 Atherosclerotic heart disease of native coronary artery without angina pectoris; I48.91 Unspecified atrial fibrillation; M10.9 Gout, unspecified; N18.9 Chronic kidney disease, unspecified; R29.6 Repeated falls; S00.83XA Contusion of other part of head, initial encounter; S00.212A Abrasion of left eyelid and periocular area, initial encounter; S00.31XA Abrasion of nose, initial encounter; S00.81XA Abrasion of other part of head, initial encounter; S00.512A Abrasion of oral cavity, initial encounter; T50.2X5A Adverse effect of carbonic-anhydrase inhibitors, benzothiadiazides and other diuretics, initial encounter; W19.XXXA Unspecified fall, initial encounter; Y92.009 Unspecified place in unspecified non-institutional (private) residence as the place of occurrence of the external cause; Z79.82 Long term (current) use of aspirin; Z79.899 Other long term (current) drug therapy; Z80.3 Family history of malignant neoplasm of breast; Z85.3 Personal history of malignant neoplasm of breast; Z91.81 History of falling; Z96.653 Presence of artificial knee joint, bilateral; Z79.84 Long term (current) use of oral hypoglycemic drugs; Z79.890 Hormone replacement therapy; Z79.51 Long term (current) use of inhaled steroids; Z88.5 Allergy status to narcotic agent; Z90.49 Acquired absence of other specified parts of digestive tract; F41.9 Anxiety disorder, unspecified; R77.8 Other specified abnormalities of plasma proteins; R53.81 Other malaise
CPT/HCPCS: 36415; 70450; 71046; 72125; 80048; 80053; 80061; 81001; 82550; 82553; 83036; 83735; 83880; 83930; 83935; 84300; 84443; 84484; 85025; 85610; 85730; 93005; 93306; 93880; 96361; 96365; 99285

== ENCOUNTER 2018-03-20 17:19 | Emergency (ER) | payer MEDICARE, BC ==
[2018-03-20 17:26] VITALS: RESP 18
[2018-03-20] MEDS ORDERED: SODIUM CHLORIDE 0.9% 500 ML 500 ML IV STA (17:57)
[2018-03-20] MEDS ORDERED: HYDROcodone/APAP 5-325MG 1 EACH TAB PO STA (18:01)
--- NOTE | 2018-03-20 18:04 | ED ---
General Adult HPI <Bossman Real - Last Filed: 03/20/18 19:36> - General Source: patient, RN notes reviewed Mode of arrival: wheelchair Limitations: no limitations <Artem Chambers - Last Filed: 03/20/18 19:45> - General Chief complaint: Fall Stated complaint: Fall-Back Injury Time Seen by Provider: 03/20/18 17:30 - History of Present Illness Initial comments: 77-year-old female presents to the emergency department for a chief complaint of fall occurring about 3 hours prior to arrival. Patient states she was folding clothes when she fell backwards onto the floor. She states she hit her head at that time. She denies any loss of consciousness. She denies any lightheadedness or dizziness preceding the fall. Patient states she was awake and alert throughout the entire fall. Patient denies any headache or visual changes at this time. Patient states since the fall she has had lower back pain as well. She states she was ambulatory at home after the fall. Patient denies any numbness or weakness in the lower extremities. She denies any saddle anesthesia or bladder or bowel changes. Patient has no other complaints at this time including shortness of breath, chest pain, abdominal pain, nausea or vomiting, headache, or visual changes. (Artem Chambers) - Related Data Home Medications Medication Instructions Recorded Confirmed DULoxetine HCL [Cymbalta] 60 mg PO DAILY 08/03/15 03/20/18 Doxepin [SINEquan] 50 mg PO HS 08/03/15 03/20/18 Aspirin EC [Ecotrin] 325 mg PO DAILY 08/07/15 03/20/18 Potassium Chloride [K-Tab ER] 20 meq PO BID 08/07/15 03/20/18 Allopurinol [Zyloprim] 300 mg PO DAILY 01/15/18 03/20/18 Atorvastatin Calcium [Lipitor] 20 mg PO DAILY 01/15/18 03/20/18 Ferrous Sulfate [Iron] 325 mg PO DAILY 01/15/18 03/20/18 Levothyroxine Sodium 300 mcg PO DAILY 01/15/18 03/20/18 Losartan Potassium [Cozaar] 25 mg PO DAILY 01/15/18 03/20/18 metFORMIN HCL 1,000 mg PO BID 01/15/18 03/20/18 ALPRAZolam [Xanax] 0.5 mg PO TID PRN 03/20/18 03/20/18 Furosemide [Lasix] 40 mg PO BID 03/20/18 03/20/18 Repaglinide [Prandin] 1 mg PO AC-TID 03/20/18 03/20/18 Previous Rx's Medication Instructions Recorded Acetaminophen Tab [Tylenol] 650 mg PO Q6HR PRN tab 01/20/18 Metolazone [Zaroxolyn] 2.5 mg PO MOWEFR #0 01/20/18 Oisrcqic-Kihhuypsxv-Ltae Oint 1 applic TOPICAL TID PRN applic 01/20/18 [Triple Antibiotic Ointment] Sennosides [Senokot] 8.6 mg PO BID PRN tab 01/20/18 Allergies Allergy/AdvReac Type Severity Reaction Status Date / Time morphine AdvReac Drug Verified 03/20/18 17:37 interaction w/unknown drug Review of Systems ROS Other: All systems not noted in ROS Statement are negative. <Bossman Real - Last Filed: 03/20/18 19:36> ROS Other: All systems not noted in ROS Statement are negative. <Artem Chambers - Last Filed: 03/20/18 19:45> ROS Statement: Those systems with pertinent positive or pertinent negative responses have been documented in the HPI. Past Medical History Past Medical History: Coronary Artery Disease (CAD), Cancer, Heart Failure, Diabetes Mellitus, Hyperlipidemia, Hypertension, Osteoarthritis (OA), Renal Disease, Thyroid Disorder Additional Past Medical History / Comment(s): lt breast cancer had lumpectomy and chemo, arthritis History of Any Multi-Drug Resistant Organisms: None Reported Past Surgical History: Appendectomy, Back Surgery, Cholecystectomy, Heart Catheterization With Stent, Joint Replacement, Orthopedic Surgery, Tonsillectomy Additional Past Surgical History / Comment(s): may knee replacements."lt ankle arthroscopy and clean out" ,rt shoulder floating bone removed. left breast lumpectomy Past Anesthesia/Blood Transfusion Reactions: No Reported Reaction Date of Last Stent Placement:: unk Past Psychological History: No Psychological Hx Reported Smoking Status: Never smoker Past Alcohol Use History: None Reported Past Drug Use History: None Reported - Past Family History Father Family Medical History: Cancer Additional Family Medical History / Comment(s): dad had breast cancer Mother Family Medical History: No Reported History ( from old age) Additional Family Medical History / Comment(s): from old age in her 90's Brother(s) History Unknown: Yes ( from old age) Daughter(s) Family Medical History: No Reported History (healthy) <TrishArtem cradoso Addis - Last Filed: 03/20/18 19:45> General Exam Limitations: no limitations General appearance: alert, in no apparent distress Head exam: Present: atraumatic, normocephalic, normal inspection Eye exam: Present: normal appearance, PERRL, EOMI, other (Negative raccoon sign) . Absent: scleral icterus, conjunctival injection, nystagmus, periorbital swelling ENT exam: Present: normal exam, normal oropharynx, mucous membranes moist, TM's normal bilaterally (Negative hemotympanum), normal external ear exam (Negative Zhou sign) Neck exam: Present: normal inspection, full ROM. Absent: tenderness (No cervical spine tenderness), meningismus, lymphadenopathy Respiratory exam: Present: normal lung sounds bilaterally. Absent: respiratory distress, wheezes, rales, rhonchi, stridor, chest wall tenderness Cardiovascular Exam: Present: regular rate, normal rhythm, normal heart sounds. Absent: systolic murmur, diastolic murmur, rubs, gallop, clicks GI/Abdominal exam: Present: soft, normal bowel sounds. Absent: distended, tenderness, guarding, rebound, rigid Back exam: Present: vertebral tenderness (Lumbar spine tenderness. No thoracic spine tenderness) Neurological exam: Present: alert, oriented X3, CN II-XII intact, normal gait, other (GCS 15) Psychiatric exam: Present: normal affect, normal mood <TrishArtem P - Last Filed: 03/20/18 19:45> Course <Bossman Real - Last Filed: 03/20/18 19:36> <Artem Chambers - Last Filed: 03/20/18 19:45> Vital Signs 03/20/18 17:20 Temperature 98 F Pulse Rate 65 Respiratory 18 Rate Blood Pressure 108/61 O2 Sat by Pulse 99 Oximetry - Reevaluation(s) Reevaluation #1: 03/20/18 19:36 PA supervision: I personally saw the patient and performed a [id number] evaluation patient did have complaints of some lumbar pain from her fall today. CAT scan shows no evidence of acute findings or is marked evidence of degenerative change in the lumbar spine CT the brain shows no acute findings. X -ray was also similar. I did discuss the findings with the patient and her family members were present. I do agree with the assessment and plan. (Bossman Real) Medical Decision Making - Lab Data Result diagrams: 03/20/18 18:18 03/20/18 18:18 <Bossman Real - Last Filed: 03/20/18 19:36> - Lab Data Result diagrams: 03/20/18 18:18 03/20/18 18:18 <Artem Chambers - Last Filed: 03/20/18 19:45> - Medical Decision Making 77-year-old female presents to the emergency department for a chief complaint of fall about 3 hours prior to arrival. Patient states she was folding clothing when she fell backwards. She denies any dizziness or chest pain preceding the fall. Patient denies any loss of consciousness. She does states she hit her head. She denies any neck pain. She does admit to low back pain. On exam she has mild lumbar spine tenderness. No focal neuro deficits. GCS 15. Patient is not on any blood thinners. Chest x-ray shows no acute lung disease, hiatal hernia present. CT brain shows no acute intracranial abnormality. CT C-spine shows no fracture. CT lumbar spine shows no new compression fractures. Compression fracture of L2 is probably old on CT. CBC and CMP unremarkable. Creatinine 1.72 which is mildly above patient's baseline but she has had elevated creatinine the past, likely due to mild dehydration. Patient was given a 500 mL bolus for this. At this time patient can be discharged home with Tylenol. She is to follow-up with primary care in 1-2 days. She is to return here if she has any worsening symptoms. Dr. Real also saw the patient. (Artem Chambers) - Lab Data Lab Results 03/20/18 03/20/18 03/20/18 Range/Units 17:55 18:18 18:18 WBC 5.3 (3.8-10.6) k/uL RBC 3.72 L (3.80-5.40) m/uL Hgb 11.5 (11.4-16.0) gm/dL Hct 37.1 (34.0-46.0) % MCV 99.7 (80.0-100.0) fL MCH 30.9 (25.0-35.0) pg MCHC 31.0 (31.0-37.0) g/dL RDW 17.0 H (11.5-15.5) % Plt Count 227 (150-450) k/uL Neutrophils % 64 % Lymphocytes % 23 % Monocytes % 6 % Eosinophils % 4 % Basophils % 1 % Neutrophils # 3.4 (1.3-7.7) k/uL Lymphocytes # 1.2 (1.0-4.8) k/uL Monocytes # 0.3 (0-1.0) k/uL Eosinophils # 0.2 (0-0.7) k/uL Basophils # 0.0 (0-0.2) k/uL Hypochromasia Slight Anisocytosis Slight Macrocytosis Slight Sodium 138 (137-145) mmol/L Potassium 3.7 (3.5-5.1) mmol/L Chloride 94 L (98-107) mmol/L Carbon Dioxide 32 H (22-30) mmol/L Anion Gap 12 mmol/L BUN 46 H (7-17) mg/dL Creatinine 1.72 H (0.52-1.04) mg/dL Est GFR (CKD-EPI)AfAm 32 (>60 ml/min/1.73 sqM) Est GFR (CKD-EPI)NonAf 28 (>60 ml/min/1.73 sqM) Glucose 79 (74-99) mg/dL Calcium 9.9 (8.4-10.2) mg/dL Magnesium 1.6 (1.6-2.3) mg/dL Total Bilirubin 0.7 (0.2-1.3) mg/dL AST 29 (14-36) U/L ALT 25 (9-52) U/L Alkaline Phosphatase 81 (38-126) U/L Total Protein 6.5 (6.3-8.2) g/dL Albumin 3.8 (3.5-5.0) g/dL Urine Color Light Yellow Urine Appearance Clear (Clear) Urine pH 7.0 (5.0-8.0) Ur Specific [place] 1.006 (1.001-1.035) Urine Protein Negative (Negative) Urine Glucose (UA) Negative (Negative) Urine Ketones Negative (Negative) Urine Blood Negative (Negative) Urine Nitrite Negative (Negative) Urine Bilirubin Negative (Negative) Urine Urobilinogen <2.0 (<2.0) mg/dL Ur Leukocyte Esterase Negative (Negative) Disposition <Bossman Real - Last Filed: 03/20/18 19:36> Is patient prescribed a controlled substance at d/c from ED?: No Time of Disposition: 19:41 <Artem Chambers - Last Filed: 03/20/18 19:45> Clinical Impression: Head injury Disposition: HOME SELF-CARE Condition: Good Instructions: Concussion (ED), Back Pain (ED) Additional Instructions: Based take Tylenol for pain. Please follow-up with primary care in 1-2 days. Please return to the emergency department if you have any worsening symptoms. Referrals: Brii Terrazas MD [Primary Care Provider] - 1-2 days
[2018-03-20 18:37] LABS: Appearance,Urine Clear (Clear); Bilirubin,Urine Negative (Negative); Blood,Urine Negative (Negative); Color,Urine Light Yellow; Glucose,Urine (UA) Negative (Negative); Ketones,Urine Negative (Negative); Leukocyte Esterase,Urine Negative (Negative); Nitrite,Urine Negative (Negative); Protein,Urine Negative (Negative); Specific Gravity,Urine 1.006 (1.001-1.035); Urobilinogen,Urine <2.0 mg/dL (<2.0)
[2018-03-20 18:39] LABS: Anisocytosis Slight; Basophils % (A) 1 %; Eosinophils # (A) 0.2 k/uL (0-0.7); Eosinophils % (A) 4 %; HCT 37.1 % (34.0-46.0); HGB 11.5 gm/dL (11.4-16.0); Hypochromasia Slight; Lymphocytes # (A) 1.2 k/uL (1.0-4.8); Lymphocytes % (A) 23 %; MCH 30.9 pg (25.0-35.0); MCV 99.7 fL (80.0-100.0); Macrocytosis Slight; Monocytes # (A) 0.3 k/uL (0-1.0); Monocytes % (A) 6 %; Neutrophils # (A) 3.4 k/uL (1.3-7.7); Neutrophils % (A) 64 %; Platelet Count 227 k/uL (150-450); RBC 3.72 m/uL (3.80-5.40); WBC 5.3 k/uL (3.8-10.6)
[2018-03-20 18:49] LABS: Albumin 3.8 g/dL (3.5-5.0); Calcium 9.9 mg/dL (8.4-10.2); Magnesium 1.6 mg/dL (1.6-2.3); Potassium 3.7 mmol/L (3.5-5.1); Total Bilirubin 0.7 mg/dL (0.2-1.3); Total Protein 6.5 g/dL (6.3-8.2)
--- NOTE | 2018-03-20 19:16 | CT ---
EXAMINATION TYPE: CT brain jose david galan DATE OF EXAM: 03/20/2018 COMPARISON: 01/15/2018 HISTORY: Fall injury CT DLP: 1472.8 mGycm Automated exposure control for dose reduction was used. TECHNIQUE: CT scan of the head and cervical spine are performed without contrast. FINDINGS: There is patchy hypodensity in the periventricular white matter. There is no mass effect normal Shift. There is no sign of intracranial hemorrhage. The calvarium is intact. There is mild cerebral c ortical atrophy. Vertebra have normal alignment. There is degenerative disc space narrowing at C5-6 with spurring of t he endplates. Facet joints are intact. The skull base is intact. IMPRESSION: Chronic small vessel ischemia. No acute intracranial abnormality. No change. Spondylosis at C5-6. No fracture. No change.
--- NOTE | 2018-03-20 19:20 | CT ---
EXAMINATION TYPE: CT lumbar spine wo con DATE OF EXAM: 03/20/2018 6:48 PM COMPARISON: None HISTORY: Lower back pain after fall CT DLP: 1302 mGycm Automated exposure control for dose reduction was used. Multiple axial sections were obtained from the level of T11-S3 vertebra with no contrast. There is normal alignment of the vertebra. There is disc prosthesis at L4-5 and L5-S1. There is sever e narrowing of the disc spaces at L4-5 and L5-S1. I see no acute fracture. The posterior elements vitaliy ear intact. There is some osteopenia. There is 10% depression superior endplate of L2. The age is not clear. Edges are slightly rounded and suggests that this is not an acute fracture. There is a large posterior disc herniation at T11-12 with extensive calcification. There is spinal stenosis at T11-12. . IMPRESSION: Spondylotic changes. Previous surgery. Compression fracture of L2 is probably old. There is bony spin al stenosis at T11-12 due to large posterior longitudinal ligament calcification and disc herniation there is a few millimeter degenerative L4-5 spondylolisthesis..
--- NOTE | 2018-03-20 19:30 | XR ---
EXAMINATION TYPE: XR chest 2V DATE OF EXAM: 03/20/2018 COMPARISON: 01/15/2018 HISTORY: Pain after falling TECHNIQUE: Frontal and lateral views of the chest are obtained. FINDINGS: There is no heart failure. There is large hiatal hernia. There is coarsening of the lung m arkings. Thoracic aorta is atheromatous. I see no definite thoracic compression fracture. There is ne ural stimulator in the mid thoracic spine. IMPRESSION: Cardiomegaly. Hiatal hernia. No acute lung disease. Mild pulmonary fibrosis. No change.
[2018-03-20 19:47] VITALS: BP 100/59; PULSE 68
[2018-03-20 20:11] VITALS: TEMP 97.8
== END 2018-03-20 20:10 | disposition home or self-care (01) ==
LOC: EC 17:19
DX: S09.90XA Unspecified injury of head, initial encounter (principal); R79.89 Other specified abnormal findings of blood chemistry; M54.5 Low back pain; E78.5 Hyperlipidemia, unspecified; I11.0 Hypertensive heart disease with heart failure; I50.9 Heart failure, unspecified; I25.10 Atherosclerotic heart disease of native coronary artery without angina pectoris; E11.9 Type 2 diabetes mellitus without complications; E07.9 Disorder of thyroid, unspecified; M19.90 Unspecified osteoarthritis, unspecified site; Z88.5 Allergy status to narcotic agent; Z79.82 Long term (current) use of aspirin; Z79.84 Long term (current) use of oral hypoglycemic drugs; Z79.899 Other long term (current) drug therapy; Z85.3 Personal history of malignant neoplasm of breast; Z92.21 Personal history of antineoplastic chemotherapy; Z98.890 Other specified postprocedural states; Z95.5 Presence of coronary angioplasty implant and graft; Z96.653 Presence of artificial knee joint, bilateral; W01.198A Fall on same level from slipping, tripping and stumbling with subsequent striking against other object, initial encounter; Y93.89 Activity, other specified; Y92.009 Unspecified place in unspecified non-institutional (private) residence as the place of occurrence of the external cause
CPT/HCPCS: 36415; 70450; 71046; 72125; 72131; 80053; 81003; 83735; 85025; 93005; 99284

== ENCOUNTER 2018-04-18 17:03 | Observation (INO) | payer MEDICARE, BC ==
[2018-04-18] MEDS ORDERED: SODIUM CHLORIDE 0.9% 1,000 ML IV STA (17:50)
[2018-04-18 18:27] LABS: Anisocytosis Slight; Basophils % (A) 1 %; Eosinophils # (A) 0.1 k/uL (0-0.7); Eosinophils % (A) 2 %; HCT 36.2 % (34.0-46.0); HGB 11.4 gm/dL (11.4-16.0); Hypochromasia Slight; Lymphocytes # (A) 0.7 k/uL (1.0-4.8); Lymphocytes % (A) 11 %; MCH 31.3 pg (25.0-35.0); MCHC 31.5 g/dL (31.0-37.0); MCV 99.4 fL (80.0-100.0); Macrocytosis Slight; Mean Platelet Volume 6.8; Monocytes # (A) 0.4 k/uL (0-1.0); Monocytes % (A) 6 %; Neutrophils # (A) 4.9 k/uL (1.3-7.7); Neutrophils % (A) 79 %; Platelet Count 212 k/uL (150-450); RBC 3.64 m/uL (3.80-5.40); RDW 17.1 % (11.5-15.5); WBC 6.2 k/uL (3.8-10.6)
[2018-04-18 18:37] LABS: Albumin 3.7 g/dL (3.5-5.0); Calcium 9.8 mg/dL (8.4-10.2); Magnesium 2.1 mg/dL (1.6-2.3); Potassium 2.9 mmol/L (3.5-5.1); Total Bilirubin 0.6 mg/dL (0.2-1.3); Total Protein 6.4 g/dL (6.3-8.2)
--- NOTE | 2018-04-18 18:54 | CT ---
EXAMINATION TYPE: CT brain cspine wo con DATE OF EXAM: 04/18/2018 COMPARISON: CT brain 03/20/2018 HISTORY: Fall injury CT DLP: 1300.6 mGycm. Automated Exposure Control for Dose Reduction was Utilized. TECHNIQUE: CT scan of the head and cervical spine are performed without contrast. FINDINGS: There is no acute intracranial hemorrhage, mass effect, or midline shift identified. The ventricles and sulci are within normal limits in size. The globes are intact and the visualized sin uses are clear. 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 Cervical spine is visualized in its entirety from C1 through upper thoracic levels and demonstrates s atisfactory alignment without evidence of acute fracture or dislocation. Prevertebral soft tissue ap pears within normal limits. The C1-C2 articulation is unremarkable. 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 IMPRESSION: 1. There is no acute fracture or dislocation evident in the cervical spine. 2. No acute intracranial hemorrhage, mass effect, or midline shift.
--- NOTE | 2018-04-18 18:57 | XR ---
EXAMINATION TYPE: XR ribs RT w pa chest x-ray DATE OF EXAM: 04/18/2018 CLINICAL HISTORY: Fall, right-sided rib pain TECHNIQUE: Single frontal view of the chest is obtained. Multiple oblique views of the right ribs are also obtained. COMPARISON: Chest radiograph 03/20/18 FINDINGS: There is no focal air space opacity, pleural effusion, or pneumothorax seen. The cardiac silhouette size is within normal limits. The osseous structures are intact. Spinal stimulator devic e is noted. Spinal fusion hardware is evident. Surgical clips are seen in the upper abdomen. Oblique projections of the right-sided ribs reveal no evidence of a displaced rib fracture. IMPRESSION: No acute process. No evidence of right-sided rib fracture.
--- NOTE | 2018-04-18 19:29 | ED ---
General Adult HPI - General Chief complaint: Fall Stated complaint: FALL Time Seen by Provider: 04/18/18 17:18 Source: patient Mode of arrival: EMS Limitations: no limitations - History of Present Illness Initial comments: 77-year-old female with a complicated medical history presents to the emergency department for a chief complaint of 2 falls occurring earlier today. Patient currently lives in assisted living center. About 4 hours prior to arrival patient was trying to put up her [place] tree when she lost balance and fell. About one hour later patient was bending down around her [place] tree and again lost balance and fell. This time she fell backwards onto her right side. She denies hitting her head or loss of consciousness. She denies neck pain. Patient denies any dizziness or lightheadedness preceding these falls. She states she has struggled with poor balance for years. She denies taking blood thinners. Patient complains of right-sided back pain. She states that this had her back is worsened when she takes a deep breath. She states this occurred at right immediately after the fall.Patient has no other complaints at this time including shortness of breath, chest pain, abdominal pain, nausea or vomiting, headache, or visual changes. - Related Data Home Medications Medication Instructions Recorded Confirmed DULoxetine HCL [Cymbalta] 60 mg PO DAILY 08/03/15 04/07/18 Doxepin [SINEquan] 50 mg PO HS 08/03/15 04/07/18 Aspirin EC [Ecotrin] 325 mg PO DAILY 08/07/15 04/07/18 Potassium Chloride [K-Tab ER] 20 meq PO BID 08/07/15 04/07/18 Allopurinol [Zyloprim] 300 mg PO DAILY 01/15/18 04/07/18 Atorvastatin Calcium [Lipitor] 20 mg PO DAILY 01/15/18 04/07/18 Ferrous Sulfate [Iron] 325 mg PO DAILY 01/15/18 04/07/18 Levothyroxine Sodium 300 mcg PO DAILY 01/15/18 04/07/18 Losartan Potassium [Cozaar] 25 mg PO DAILY 01/15/18 04/07/18 metFORMIN HCL 1,000 mg PO BID 01/15/18 04/07/18 ALPRAZolam [Xanax] 0.5 mg PO TID PRN 03/20/18 04/07/18 Furosemide [Lasix] 40 mg PO BID 03/20/18 04/07/18 Repaglinide [Prandin] 1 mg PO AC-TID 03/20/18 04/07/18 Previous Rx's Medication Instructions Recorded Acetaminophen Tab [Tylenol] 650 mg PO Q6HR PRN tab 01/20/18 Metolazone [Zaroxolyn] 2.5 mg PO MOWEFR #0 01/20/18 Yuyggfyj-Cxriquhyij-Wtjo Oint 1 applic TOPICAL TID PRN applic 01/20/18 [Triple Antibiotic Ointment] Sennosides [Senokot] 8.6 mg PO BID PRN tab 01/20/18 Allergies Allergy/AdvReac Type Severity Reaction Status Date / Time morphine AdvReac Drug Verified 04/18/18 17:23 interaction w/unknown drug Review of Systems ROS Statement: Those systems with pertinent positive or pertinent negative responses have been documented in the HPI. ROS Other: All systems not noted in ROS Statement are negative. Past Medical History Past Medical History: Coronary Artery Disease (CAD), Cancer, Heart Failure, Diabetes Mellitus, Hyperlipidemia, Hypertension, Osteoarthritis (OA), Renal Disease, Thyroid Disorder Additional Past Medical History / Comment(s): lt breast cancer had lumpectomy and chemo, arthritis History of Any Multi-Drug Resistant Organisms: None Reported Past Surgical History: Appendectomy, Back Surgery, Cholecystectomy, Heart Catheterization With Stent, Joint Replacement, Orthopedic Surgery, Tonsillectomy Additional Past Surgical History / Comment(s): may knee replacements."lt ankle arthroscopy and clean out" ,rt shoulder floating bone removed. left breast lumpectomy Past Anesthesia/Blood Transfusion Reactions: No Reported Reaction Date of Last Stent Placement:: unk Past Psychological History: No Psychological Hx Reported Smoking Status: Never smoker Past Alcohol Use History: None Reported Past Drug Use History: None Reported - Past Family History Father Family Medical History: Cancer Additional Family Medical History / Comment(s): dad had breast cancer Mother Family Medical History: No Reported History Additional Family Medical History / Comment(s): from old age in her 90's Brother(s) History Unknown: Yes Daughter(s) Family Medical History: No Reported History General Exam Limitations: no limitations General appearance: alert, in no apparent distress Head exam: Present: atraumatic, normocephalic, normal inspection Eye exam: Present: normal appearance, PERRL, EOMI. Absent: scleral icterus, conjunctival injection, periorbital swelling ENT exam: Present: normal exam, mucous membranes moist Neck exam: Present: normal inspection, full ROM. Absent: tenderness, meningismus, lymphadenopathy Respiratory exam: Present: normal lung sounds bilaterally. Absent: respiratory distress, wheezes, rales, rhonchi, stridor Cardiovascular Exam: Present: regular rate, normal rhythm, normal heart sounds. Absent: systolic murmur, diastolic murmur, rubs, gallop, clicks GI/Abdominal exam: Present: soft, normal bowel sounds. Absent: distended, tenderness (No tenderness in the abdomen, no tenderness in the right upper quadrant.), guarding, rebound, rigid Back exam: Present: other (Significant ecchymosis about 10 cm x 10 cm noted to the right flank) Neurological exam: Present: alert, oriented X3, CN II-XII intact Psychiatric exam: Present: normal affect, normal mood Course Vital Signs 04/18/18 04/18/18 04/18/18 17:19 20:06 20:10 Temperature 98.7 F Pulse Rate 69 74 Respiratory 18 20 Rate Blood Pressure 122/59 132/65 O2 Sat by Pulse 98 94 L 94 L Oximetry EKG Findings - EKG Comments: EKG Findings:: Atrial fibrillation, ventricular rate 75, QRS duration 90, QTc 457 Medical Decision Making - Medical Decision Making 77-year-old female with a chief complaint of fall 2 earlier today. Patient fell on her right side. She is not sure if she hit her head. She is not on blood thinners. Patient does have a large area of ecchymosis noted to the right flank. She states pain is worse when taking a deep breath but denies shortness of breath. CT abdomen and pelvis was ordered to rule out any internal kidney injury which did demonstrate an 11th right rib fracture with minimal displacement. Chest x-ray showed no pneumothorax. Patient was educated by respiratory therapy and given an incentive spirometer here in the ER. CT head and cervical spine were negative. Patient was told that she had an incidental finding of right renal cyst that she will follow up with Dr. Terrazas for. Patient has had hypokalemia in the past labs were drawn. Potassium is 2.9, magnesium 2.1. At this time given patient's fall as well as rib fracture and hypokalemia she is able be admitted for potassium replacement. She was given 40 mEq oral and 40 IV. Patient's son stated she had sundowners the last time she was in the hospital and requested no narcotics at this time. Patient will be given Tylenol for pain relief. Patient's EKG does show atrial fibrillation with a controlled ventricular rate. Patient and family member states she has a history of atrial fibrillation but was taken off her blood thinners - Lab Data Result diagrams: 04/18/18 18:11 04/18/18 18:11 Lab Results 04/18/18 04/18/18 Range/Units 18:11 18:11 WBC 6.2 (3.8-10.6) k/uL RBC 3.64 L (3.80-5.40) m/uL Hgb 11.4 (11.4-16.0) gm/dL Hct 36.2 (34.0-46.0) % MCV 99.4 (80.0-100.0) fL MCH 31.3 (25.0-35.0) pg MCHC 31.5 (31.0-37.0) g/dL RDW 17.1 H (11.5-15.5) % Plt Count 212 (150-450) k/uL Neutrophils % 79 % Lymphocytes % 11 % Monocytes % 6 % Eosinophils % 2 % Basophils % 1 % Neutrophils # 4.9 (1.3-7.7) k/uL Lymphocytes # 0.7 L (1.0-4.8) k/uL Monocytes # 0.4 (0-1.0) k/uL Eosinophils # 0.1 (0-0.7) k/uL Basophils # 0.0 (0-0.2) k/uL Hypochromasia Slight Anisocytosis Slight Macrocytosis Slight Sodium 141 (137-145) mmol/L Potassium 2.9 L (3.5-5.1) mmol/L Chloride 96 L (98-107) mmol/L Carbon Dioxide 35 H (22-30) mmol/L Anion Gap 10 mmol/L BUN 31 H (7-17) mg/dL Creatinine 0.90 (0.52-1.04) mg/dL Est GFR (CKD-EPI)AfAm 71 (>60 ml/min/1.73 sqM) Est GFR (CKD-EPI)NonAf 61 (>60 ml/min/1.73 sqM) Glucose 93 (74-99) mg/dL Calcium 9.8 (8.4-10.2) mg/dL Magnesium 2.1 (1.6-2.3) mg/dL Total Bilirubin 0.6 (0.2-1.3) mg/dL AST 27 (14-36) U/L ALT 24 (9-52) U/L Alkaline Phosphatase 106 (38-126) U/L Total Protein 6.4 (6.3-8.2) g/dL Albumin 3.7 (3.5-5.0) g/dL Disposition Clinical Impression: Hypokalemia, Rib fracture, Fall Disposition: ADMITTED IP TO THIS HOSP Is patient prescribed a controlled substance at d/c from ED?: No Referrals: Brii Terrazas MD [Primary Care Provider] - 1-2 days
--- NOTE | 2018-04-18 19:57 | CT ---
EXAMINATION TYPE: CT abdomen pelvis w con DATE OF EXAM: 04/18/2018 COMPARISON: Fall, pain HISTORY: Upper abdominal pain after fall injury CT DLP: 729 mGycm Automated exposure control for dose reduction was used. TECHNIQUE: Helical acquisition of images was performed from the lung bases through the pelvis. CONTRAST: Performed without Oral Contrast and with IV Contrast, patient injected with 50 mL of Isovue 300. FINDINGS: LUNG BASES: Multifocal bibasilar subsegmental atelectasis is evident. Large hiatal hernia is seen. LIVER/GB: Liver is within normal limits small calcified granuloma in the anterior right hepatic lobe. The gallbladder is surgically absent. PANCREAS: No significant abnormality is seen. SPLEEN: No significant abnormality is seen. ADRENALS: No significant abnormality is seen. KIDNEYS: Contrast excretion by the bilateral kidneys is symmetric. Renal parenchyma is unremarkable. Circumaortic left renal vein. Right-sided simple renal cyst measures 5.6 cm FREE AIR: No free air is visualized. RETROPERITONEAL ADENOPATHY: None visualized REPRODUCTIVE ORGANS: No significant abnormality is seen URINARY BLADDER: No significant abnormality is seen. PELVIC ADENOPATHY: None visualized. . OSSEOUS STRUCTURES: Minimally displaced fracture of the right posterior 11th rib. BOWEL: No significant abnormality is seen. OTHER: Nonspecific calcified 4 mm ovoid abnormality located near the posterior aspect of the liver. S caroline stimulator device is evident. Evidence of a prior lumbar fusion. IMPRESSION: MINIMALLY DISPLACED RIGHT 11TH RIB FRACTURE.
[2018-04-18] MEDS ORDERED: POTASSIUM CHLORIDE 20 MEQ in WATER FOR INJECTION 1 100ML.BAG IVPB STA (20:32)
[2018-04-18] MEDS ORDERED: POTASSIUM CHLORIDE ER 20 MEQ TAB.ER PO STA (20:33)
[2018-04-18] MEDS ORDERED: ACETAMINOPHEN TAB 325 MG TAB PO PRN (20:34)
[2018-04-18] MEDS ORDERED: ONDANSETRON 4 MG/2 ML VIAL IVP PRN (20:34)
[2018-04-18] MEDS ORDERED: NALOXONE 0.4 MG/ML 1 ML VIAL IV PRN (20:34)
[2018-04-18] MEDS ORDERED: POTASSIUM CHLORIDE 20 MEQ in WATER FOR INJECTION 1 100ML.BAG IVPB ONE (21:00)
[2018-04-18] MEDS: SODIUM CHLORIDE 0.9% 1,000 ML IV SCH (23:11)
[2018-04-19] MEDS: HYDROcodone/APAP 5-325MG 1 EACH TAB PO PRN ×3 (02:17→20:03)
[2018-04-19] MEDS: LIDOCAINE 5% PATCH TOPICAL SCH (05:49)
[2018-04-19] MEDS: SODIUM CHLORIDE 0.9% 1,000 ML IV SCH (05:49)
--- NOTE | 2018-04-19 09:57 | US ---
EXAMINATION TYPE: US carotid duplex BILAT DATE OF EXAM: 04/19/2018 COMPARISON: US, CT brain CLINICAL HISTORY: frequent falls. AFIB EXAM MEASUREMENTS: RIGHT: Peak Systolic Velocity (PSV) cm/sec ----- Right CCA: 73.7 ----- Right ICA: 109.5 ----- Right ECA: 89.6 ICA/CCA ratio: 1.5 RIGHT: End Diastole cm/sec ----- Right CCA: 15.5 ----- Right ICA: 28.0 ----- Right ECA: 15.4 LEFT: Peak Systolic Velocity (PSV) cm/sec ----- Left CCA: 69.2 ----- Left ICA: 100.4 ----- Left ECA: 87.5 ICA/CCA ratio: 1.5 LEFT: End Diastole cm/sec ----- Left CCA: 14.0 ----- Left ICA: 100.4 ----- Left ECA: 10.9 VERTEBRALS (direction of flow): Right Vertebral: Antegrade Left Vertebral: Antegrade Rhythm: Arrhythmia noted on images #[id number] and [id number]. IMPRESSION: Moderate, irregular, mixed wall plaque is seen in bilateral carotid bifurcation, but PSV is wnl bilaterally. No hemodynamically significant stenosis appreciated. Criteria for Assigning % of Stenosis / Diameter reduction (Estimation based on the indirect measurements of the internal carotid artery velocities (ICA PSV). 1. Normal (no stenosis)=ICA PSV < 125 cm/s: ratio < 2.0: ICA EDV<40 cm/s. 2. Less than 50% stenosis=ICA PSV < 125 cm/s: ratio < 2.0: ICA EDV<40 cm/s. 3. 50 to 69% stenosis=ICA PSV of 125 to 230 cm/s: ration 2.0 ? 4.0: ICA EDV 40-100 cm/s. 4. Greater than 70% stenosis to near occlusion= ICA PSV > 230 cm/s: ratio > 4.0: ICA EDV > 100 cm/s. 5. Near occlusion= ICA PSV velocities may be low or undetectable: variable ratio and ICA EDV. 6. Total occlusion=unable to detect flow.
[2018-04-19] MEDS ORDERED: ALPRAZolam 0.5 MG TAB PO PRN (11:06)
[2018-04-19] MEDS ORDERED: ACETAMINOPHEN TAB 325 MG TAB PO PRN (11:06)
--- NOTE | 2018-04-19 11:38 | P.HPIM ---
History of Present Illness H&P Date: 04/19/18 Chief Complaint: Fall This is a 77-year-old female patient of Dr. Terrazas with a past medical history of coronary artery disease, left-sided breast cancer status post lumpectomy and chemotherapy, diabetes mellitus type 2, chronic atrial fibrillation not on anticoagulation due to falls, hypertension, hyperlipidemia, hypothyroidism, generalized anxiety disorder. Patient currently resides at [facility] and was putting her Jana tree up yesterday ended up falling in her living room 2 times. She denies having any loss of consciousness , no recent sickness. She complains of feeling weak and is not sure why she fell. She denies any seizure activity. She did hit a table and her walker fell on top of her. She injured her right posterior chest area and is complaining of mid low back pain. She states she lives independently but does have someone help with cleaning and laundry. She came into [facility] emergency center for evaluation. CAT scan of the head showed no acute intracranial hemorrhage or mass effect, no midline shift. CAT scan of the cervical spine showed no acute fracture or dislocation. CT of the abdomen and pelvis showed a minimally displaced right 11th rib fracture. EKG showed A. fib , rate controlled. Potassium was 2.9, CO2 35, BUN 31 creatinine 0.9. Blood sugar was 93. Patient was admitted to the [facility] floor, carotid ultrasound, echocardiogram ordered. Potassium was replaced. Physical therapy and occupational therapy and incentive spirometry added. Review of Systems All systems: negative Constitutional: Reports fatigue, Reports weakness, Denies chills, Denies fever, Denies malaise, Denies poor appetite, Denies weight loss Eyes: denies blurred vision, denies pain Ears, nose, mouth and throat: Denies dysphagia, Denies headache, Denies sore throat, Denies vertigo Cardiovascular: Reports chest pain, Reports leg edema, Denies decreased exercise tolerance, Denies dyspnea on exertion, Denies orthopnea, Denies palpitations, Denies shortness of breath, Denies syncope Respiratory: Denies cough, Denies cough with sputum, Denies dyspnea, Denies excessive sputum, Denies hemoptysis, Denies home oxygen, Denies wheezing Gastrointestinal: Denies abdominal pain, Denies diarrhea, Denies loss of appetite, Denies melena, Denies nausea, Denies vomiting Genitourinary: Denies dysuria, Denies hematuria Musculoskeletal: Reports frequent falls, Reports muscle weakness, Denies myalgias Integumentary: Reports darkening of skin, Denies pruritus, Denies rash, Denies wounds Neurological: Reports balance difficulties, Reports gait dysfunction, Denies change in mentation, Denies confusion, Denies convulsions, Denies numbness, Denies weakness Psychiatric: Denies anxiety, Denies depression Endocrine: Denies fatigue, Denies weight change Past Medical History Past Medical History: Coronary Artery Disease (CAD), Cancer, Heart Failure, Diabetes Mellitus, Hyperlipidemia, Hypertension, Osteoarthritis (OA), Renal Disease, Thyroid Disorder Additional Past Medical History / Comment(s): lt breast cancer had lumpectomy and chemo, arthritis History of Any Multi-Drug Resistant Organisms: None Reported Past Surgical History: Appendectomy, Back Surgery, Cholecystectomy, Heart Catheterization With Stent, Joint Replacement, Orthopedic Surgery, Tonsillectomy Additional Past Surgical History / Comment(s): may knee replacements."lt ankle arthroscopy and clean out" ,rt shoulder floating bone removed. left breast lumpectomy Past Anesthesia/Blood Transfusion Reactions: No Reported Reaction Date of Last Stent Placement:: unk Past Psychological History: No Psychological Hx Reported Additional Psychological History / Comment(s): pt stated lives in [facility], uses walker when up. no home care services. Smoking Status: Never smoker Past Alcohol Use History: None Reported Past Drug Use History: None Reported - Past Family History Father Family Medical History: Cancer Additional Family Medical History / Comment(s): dad had breast cancer Mother Family Medical History: No Reported History Additional Family Medical History / Comment(s): from old age in her 90's Brother(s) History Unknown: Yes Additional Family Medical History / Comment(s): Patient 1 brother that of old age. Daughter(s) Family Medical History: No Reported History Additional Family Medical History / Comment(s): Patient has a daughter that is healthy with no major medical problems. Medications and Allergies Home Medications Medication Instructions Recorded Confirmed Type DULoxetine HCL [Cymbalta] 60 mg PO DAILY 08/03/15 04/19/18 History Potassium Chloride [K-Tab ER] 10 meq PO BID 08/07/15 04/19/18 History Allopurinol [Zyloprim] 300 mg PO DAILY 01/15/18 04/19/18 History Atorvastatin Calcium [Lipitor] 20 mg PO DAILY 01/15/18 04/19/18 History Losartan Potassium [Cozaar] 25 mg PO DAILY 01/15/18 04/19/18 History Acetaminophen Tab [Tylenol] 650 mg PO Q6HR PRN tab 01/20/18 04/19/18 Rx ALPRAZolam [Xanax] 0.5 mg PO TID PRN 03/20/18 04/19/18 History Furosemide [Lasix] 40 mg PO DAILY 03/20/18 04/19/18 History Repaglinide [Prandin] 1 mg PO AC-TID 03/20/18 04/19/18 History Betaxolol HCl [Betoptic S 0.5% 1 drop BOTH EYES DAILY 04/19/18 04/19/18 History Ophth Soln] Doxepin HCl 50 mg PO HS 04/19/18 04/19/18 History Furosemide [Lasix] 40 mg PO DAILY@1200 PRN 04/19/18 04/19/18 History Levothyroxine Unknown Dose 1 tab PO DAILY 04/19/18 04/19/18 History Metolazone [Zaroxolyn] 2.5 mg PO DAILY 04/19/18 04/19/18 History Oxybutynin Chloride [Oxybutynin 10 mg PO BID 04/19/18 04/19/18 History Chloride ER] Allergies Allergy/AdvReac Type Severity Reaction Status Date / Time morphine AdvReac Drug Verified 04/19/18 09:30 interaction w/unknown drug Physical Exam Vitals: Vital Signs Temp Pulse Pulse Resp BP BP Pulse Ox 04/19/18 07:00 98.2 F 73 18 105/61 93 L 04/18/18 23:00 97.9 F 69 18 127/72 99 04/18/18 21:00 85 20 132/61 97 04/18/18 20:10 74 20 132/65 94 L 04/18/18 20:06 94 L 04/18/18 17:19 98.7 F 69 18 122/59 98 Intake and Output 04/18/18 04/19/18 04/19/18 22:59 06:59 14:59 Intake Total 300 Balance 300 Intake: Oral 300 Other: Voiding Method Bedside Commode Bedpan Bedpan # Voids 3 Weight 90.265 kg 90.265 kg Gen: This is a 77-year-old female. She is sitting up in bed and appears to be in no acute distress. HEENT: Head is atraumatic, normocephalic. Pupils equal, round. Sclerae is anicteric. NECK: Supple. No JVD. No lymphadenopathy. No thyromegaly. LUNGS: Clear to auscultation. No wheezes or rhonchi. No intercostal retractions. HEART: Irregular rate and rhythm. No murmur. Positive chest wall tenderness. Ecchymosis noted on the posterior chest wall on the right side. ABDOMEN: Soft. Bowel sounds are present. No masses. No tenderness. EXTREMITIES: 1+ pedal edema with chronic dark color changes. No calf tenderness. NEUROLOGICAL: Patient is awake, alert and oriented x3. Cranial nerves 2 through 12 are grossly intact. Results CBC & Chem 7: 04/18/18 18:11 04/18/18 18:11 Labs: Abnormal Lab Results - Last 24 Hours (Table) 04/18/18 04/18/18 Range/Units 18:11 18:11 RBC 3.64 L (3.80-5.40) m/uL RDW 17.1 H (11.5-15.5) % Lymphocytes # 0.7 L (1.0-4.8) k/uL Potassium 2.9 L (3.5-5.1) mmol/L Chloride 96 L (98-107) mmol/L Carbon Dioxide 35 H (22-30) mmol/L BUN 31 H (7-17) mg/dL Thrombosis Risk Factor Assmnt - DVT/VTE Prophylaxis DVT/VTE Prophylaxis: Pharmacologic Prophylaxis ordered - Choose All That Apply Any of the Below Risk Factors Present?: Yes Each Factor Represents 1 point: Obesity (BMI >25), Swollen legs (current) Other Risk Factors: Yes Each Risk Factor Represents 3 Points: Age 75 years or older Thrombosis Risk Factor Assessment Total Risk Factor Score: 5 Thrombosis Risk Factor Assessment Level: High Risk Assessment and Plan Plan: 1. Acute fall with frequent falls at home without syncope. Patient will be admitted to the [facility] floor, PT OT consults, orthostatic vital signs. 2. Acute hypokalemia most likely due to dehydration and diuretics. Lasix will be decreased to 20 mg daily. Recheck potassium and replace as needed. 3. Acute right 11th rib fracture secondary to fall without syncope. Incentive spirometry. 4. Diabetes mellitus type 2. Continue Prandin 1 mg 3 times daily and insulin scale before meals and at bedtime. 5. Breast cancer status post lumpectomy and chemotherapy, stable 6. Hypothyroidism. Patient does not know her home dose. TSH will be checked and office will be contacted tomorrow regarding levothyroxine dose. 7. Hypertension. Continue losartan 25 mg daily. 8. Gout, chronic. Continue allopurinol 300 mg daily. 9. Chronic pain/recurrent depression, on doxepin 50 mg at bedtime and Cymbalta 60 mg daily 10. Metabolic alkalosis secondary to diuretic use. Metolazone is on hold. 12. Hyperlipidemia. Continue atorvastatin 20 mg daily 13. Generalized edema bilateral lower extremity. Lasix decreased to 20 mg daily, metolazone placed on hold. 14. Debility with balance issues and frequent falls. PT OT evaluation. 15. DVT prophylaxis. Lovenox daily. 16. GI prophylaxis. Pepcid. Patient will be admitted to the hospital for a minimum of 2 nights day. Discharge plan: To be determined Impression and plan of care have been directed as dictated by the signing physician. Sherron Leon nurse practitioner acting as scribe for signing physician.
[2018-04-19] MEDS: DULoxetine HCL 60 MG CAPSULE.DR PO SCH (12:11)
[2018-04-19] MEDS: LOSARTAN 25 MG TAB PO SCH (12:11)
[2018-04-19] MEDS: REPAGLINIDE 1 MG TAB PO SCH ×2 (12:11→17:33)
[2018-04-19] MEDS: TIMOLOL 0.5% OPHTH DROPS 5 ML BTL BOTH EYES SCH (12:15)
[2018-04-19] MEDS: INSULIN ASPART 100 UNIT/ML 1 ML 10 ML VIAL SQ SCH ×3 (12:26→21:09)
[2018-04-19 12:33] LABS: Potassium 3.1 mmol/L (3.5-5.1)
[2018-04-19 12:45] LABS: Glucose,Whole Blood 106 mg/dL (75-99)
[2018-04-19] MEDS ORDERED: Potassium Replacement Protocol 1 EACH MISC MISCELLANE PRN ×2 (13:20→18:30)
[2018-04-19] MEDS: POTASSIUM CHLORIDE ER 20 MEQ TAB.ER PO SCH ×4 (14:09→21:08)
[2018-04-19 15:29] LABS: Appearance,Urine Cloudy (Clear); Bacteria,Urine Rare /hpf; Bilirubin,Urine Negative (Negative); Blood,Urine Negative (Negative); Color,Urine Yellow; Glucose,Urine (UA) Negative (Negative); Hyaline Casts,Urine 3 /lpf (0-2); Ketones,Urine Negative (Negative); Leukocyte Esterase,Urine Moderate (Negative); Nitrite,Urine Negative (Negative); Protein,Urine Trace (Negative); RBC,Urine 26 /hpf (0-5); Specific Gravity,Urine 1.018 (1.001-1.035); Squamous Epithelial Cell,Urine 10 /hpf (0-4); WBC,Urine 18 /hpf (0-5)
[2018-04-19 17:29] LABS: Glucose,Whole Blood 74 mg/dL (75-99)
[2018-04-19] MEDS: CEFDINIR 300 MG CAP PO SCH (20:36)
[2018-04-19] MEDS: POTASSIUM CHLORIDE ER 10 MEQ TAB.ER.PRT PO SCH (20:37)
[2018-04-19] MEDS: OXYBUTYNIN 10 MG TAB.ER.24 PO SCH (20:37)
[2018-04-19 20:59] LABS: Glucose,Whole Blood 75 mg/dL (75-99)
[2018-04-19] MEDS ORDERED: DOXEPIN 25 MG CAP PO SCH (21:00)
[2018-04-20] MEDS: LIDOCAINE 5% PATCH TOPICAL SCH (05:43)
[2018-04-20 07:29] LABS: Glucose,Whole Blood 113 mg/dL (75-99)
[2018-04-20] MEDS: INSULIN ASPART 100 UNIT/ML 1 ML 10 ML VIAL SQ SCH ×2 (07:52→11:38)
[2018-04-20] MEDS: TIMOLOL 0.5% OPHTH DROPS 5 ML BTL BOTH EYES SCH (07:53)
[2018-04-20] MEDS: OXYBUTYNIN 10 MG TAB.ER.24 PO SCH (07:54)
[2018-04-20] MEDS: REPAGLINIDE 1 MG TAB PO SCH ×2 (07:54→13:25)
[2018-04-20] MEDS: LOSARTAN 25 MG TAB PO SCH (07:55)
[2018-04-20] MEDS: CEFDINIR 300 MG CAP PO SCH (07:55)
[2018-04-20] MEDS: POTASSIUM CHLORIDE ER 10 MEQ TAB.ER.PRT PO SCH (07:55)
[2018-04-20] MEDS: DULoxetine HCL 60 MG CAPSULE.DR PO SCH (07:55)
[2018-04-20] MEDS ORDERED: FUROSEMIDE 40 MG TAB PO SCH (09:00)
[2018-04-20] MEDS ORDERED: FAMOTIDINE 20 MG TAB PO SCH (09:00)
[2018-04-20] MEDS ORDERED: METOLAZONE 2.5 MG TAB PO SCH (09:00)
[2018-04-20] MEDS ORDERED: FUROSEMIDE 20 MG TAB PO SCH (09:00)
[2018-04-20] MEDS ORDERED: ENOXAPARIN 40 MG/0.4 ML SYRINGE SQ SCH (09:00)
[2018-04-20] MEDS ORDERED: ATORVASTATIN 20 MG TAB PO SCH (09:00)
[2018-04-20] MEDS ORDERED: ALLOPURINOL 300 MG TAB PO SCH (09:00)
[2018-04-20] MEDS: HYDROcodone/APAP 5-325MG 1 EACH TAB PO PRN (09:21)
[2018-04-20 10:34] VITALS: BMI 32.1
[2018-04-20 11:05] LABS: Hemoglobin A1C 5.6 % (4.0-6.0)
[2018-04-20 11:36] LABS: Glucose,Whole Blood 80 mg/dL (75-99)
[2018-04-20 11:38] LABS: Anion Gap 8 mmol/L; Blood Urea Nitrogen 16 mg/dL (7-17); Calcium 9.7 mg/dL (8.4-10.2); Carbon Dioxide 27 mmol/L (22-30); Chloride 104 mmol/L (98-107); Glucose 76 mg/dL (74-99); Sodium 139 mmol/L (137-145)
--- NOTE | 2018-04-20 13:08 | P.DS ---
Providers Date of admission: 04/18/18 20:23 Expected date of discharge: 04/20/18 Attending physician: Brii Terrazas Consults: 04/18/18 20:34 Consult Physician Stat Consulting Provider: Brii Terrazas Consult Reason/Comments: hypokalemia, fall, rib fracture Do you want consulting provider notified?: Yes Primary care physician: Brii Terrazas [facility] Course: This is a 77-year-old female patient of Dr. Terrazas with a past medical history of coronary artery disease, left-sided breast cancer status post lumpectomy and chemotherapy, diabetes mellitus type 2, chronic atrial fibrillation not on anticoagulation due to falls, hypertension, hyperlipidemia, hypothyroidism, generalized anxiety disorder. Patient currently resides at [facility] and was putting her Jana tree up yesterday ended up falling in her living room 2 times. She denies having any loss of consciousness , no recent sickness. She complains of feeling weak and is not sure why she fell. She denies any seizure activity. She did hit a table and her walker fell on top of her. She injured her right posterior chest area and is complaining of mid low back pain. She states she lives independently but does have someone help with cleaning and laundry. She came into [facility] emergency center for evaluation. CAT scan of the head showed no acute intracranial hemorrhage or mass effect, no midline shift. CAT scan of the cervical spine showed no acute fracture or dislocation. CT of the abdomen and pelvis showed a minimally displaced right 11th rib fracture. EKG showed A. fib , rate controlled. Potassium was 2.9, CO2 35, BUN 31 creatinine 0.9. Blood sugar was 93. [facility], carotid ultrasound, echocardiogram ordered. Potassium was replaced. Physical therapy and occupational therapy and incentive spirometry added. 04/20: Patient states that she is feeling much better today. She states her pain is still there but it is getting better. Carotid duplex was negative for hemodynamically significant stenosis. The patient is requesting to go home and does not want to be subacute rehab. PT and OT have evaluated with recommendations for home with home care. retail merchandising manager has made arrangements and patient will be discharged home today in stable condition. Discharge diagnoses: 1. Acute fall with frequent falls at home without syncope. 2. Acute hypokalemia most likely due to dehydration and diuretics. 3. Acute right 11th rib fracture secondary to fall without syncope. 4. Diabetes mellitus type 2. 5. Breast cancer status post lumpectomy and chemotherapy, stable 6. Hypothyroidism. 7. Hypertension. 8. Gout, chronic. 9. Chronic pain/recurrent depression 10. Metabolic alkalosis secondary to diuretic use. 12. Hyperlipidemia. 13. Generalized edema bilateral lower extremity. 14. Debility with balance issues and frequent falls. Discharge plan: Home with Health system Impression and plan of care have been directed as dictated by the signing physician. Sherron eLon nurse practitioner acting as scribe for signing physician. Patient Condition at Discharge: Good Plan - Discharge Summary New Discharge Prescriptions: No Action DULoxetine HCL [Cymbalta] 60 mg PO DAILY Potassium Chloride [K-Tab ER] 10 meq PO BID Atorvastatin Calcium [Lipitor] 20 mg PO DAILY Losartan Potassium [Cozaar] 25 mg PO DAILY Allopurinol [Zyloprim] 300 mg PO DAILY Acetaminophen Tab [Tylenol] 650 mg PO Q6HR PRN tab PRN Reason: Mild Pain Or Fever > 100.5 Repaglinide [Prandin] 1 mg PO AC-TID ALPRAZolam [Xanax] 0.5 mg PO TID PRN PRN Reason: Anxiety Furosemide [Lasix] 40 mg PO DAILY Furosemide [Lasix] 40 mg PO DAILY@1200 PRN PRN Reason: Edema Doxepin HCl 50 mg PO HS Metolazone [Zaroxolyn] 2.5 mg PO DAILY Oxybutynin Chloride [Oxybutynin Chloride ER] 10 mg PO BID Betaxolol HCl [Betoptic S 0.5% Oph Soln] 1 drop BOTH EYES DAILY Levothyroxine Sodium [Synthroid] 300 mcg PO MOTUTHFRSA Levothyroxine Sodium [Synthroid] 150 mcg PO SUWE Discharge Medication List DULoxetine HCL [Cymbalta] 60 mg PO DAILY 08/03/15 [History] Potassium Chloride [K-Tab ER] 10 meq PO BID 08/07/15 [History] Allopurinol [Zyloprim] 300 mg PO DAILY 01/15/18 [History] Atorvastatin Calcium [Lipitor] 20 mg PO DAILY 01/15/18 [History] Losartan Potassium [Cozaar] 25 mg PO DAILY 01/15/18 [History] Acetaminophen Tab [Tylenol] 650 mg PO Q6HR PRN tab 09/04/18 [Rx] ALPRAZolam [Xanax] 0.5 mg PO TID PRN 03/20/18 [History] Furosemide [Lasix] 40 mg PO DAILY 03/20/18 [History] Repaglinide [Prandin] 1 mg PO AC-TID 03/20/18 [History] Betaxolol HCl [Betoptic S 0.5% Ophth Soln] 1 drop BOTH EYES DAILY 04/19/18 [ History] Doxepin HCl 50 mg PO HS 04/19/18 [History] Furosemide [Lasix] 40 mg PO DAILY@1200 PRN 04/19/18 [History] Metolazone [Zaroxolyn] 2.5 mg PO DAILY 04/19/18 [History] Oxybutynin Chloride [Oxybutynin Chloride ER] 10 mg PO BID 04/19/18 [History] Levothyroxine Sodium [Synthroid] 150 mcg PO SUWE 04/20/18 [History] Levothyroxine Sodium [Synthroid] 300 mcg PO MOTUTHFRSA 04/20/18 [History] Follow up Appointment(s)/Referral(s): Brii Terrazas MD [Primary Care Provider] - 04/23/18 4:15 pm [facility], [REFERRING] - Activity/Diet/Wound Care/Special Instructions: Recommend levothyroxine 150mcg daily and have TSH and FT4 rechecked in [address] Terrazas. Continue Incentive Spirometry every hour while awake. Discharge Disposition: HOME WITH HOME HEALTH SERVICES
[2018-04-20 14:44] VITALS: BP 116/61; PULSE 71; RESP 18; TEMP 96.5
== END 2018-04-20 15:38 | disposition home health service (06) ==
LOC: EC 17:03 → 4MS4W 20:23
PROVIDERS: ADMIT Family Medicine; ATTEND Family Medicine
DX: E87.6 Hypokalemia (principal); R42 Dizziness and giddiness; S22.31XA Fracture of one rib, right side, initial encounter for closed fracture; I25.10 Atherosclerotic heart disease of native coronary artery without angina pectoris; I10 Essential (primary) hypertension; E11.9 Type 2 diabetes mellitus without complications; I48.2 Chronic atrial fibrillation; F41.1 Generalized anxiety disorder; E03.9 Hypothyroidism, unspecified; E78.5 Hyperlipidemia, unspecified; E86.0 Dehydration; R53.81 Other malaise; E87.3 Alkalosis; F33.9 Major depressive disorder, recurrent, unspecified; R60.1 Generalized edema; G89.29 Other chronic pain; I11.0 Hypertensive heart disease with heart failure; I50.9 Heart failure, unspecified; M1A.9XX0 Chronic gout, unspecified, without tophus (tophi); N28.1 Cyst of kidney, acquired; M19.90 Unspecified osteoarthritis, unspecified site; T50.2X5A Adverse effect of carbonic-anhydrase inhibitors, benzothiadiazides and other diuretics, initial encounter; W01.0XXA Fall on same level from slipping, tripping and stumbling without subsequent striking against object, initial encounter; M54.5 Low back pain; R29.6 Repeated falls; Z85.3 Personal history of malignant neoplasm of breast; Z98.890 Other specified postprocedural states; Z79.890 Hormone replacement therapy; Z79.82 Long term (current) use of aspirin; Z79.899 Other long term (current) drug therapy; Z96.653 Presence of artificial knee joint, bilateral; Z80.3 Family history of malignant neoplasm of breast; Z92.21 Personal history of antineoplastic chemotherapy; Z88.5 Allergy status to narcotic agent
CPT/HCPCS: 96361 ×2; 96366; 96372; 96365; 99285; 36415; 93005; 97162; 97166; 84439; 80053; 80048; 84443; 83735; 84132; 85025; 81001; 87086; 83036; 71101; 93880; 72125; 70450; 74177; G0378 ×3; J3480; J1650; Q9967

== ENCOUNTER 2018-05-10 16:53 | Inpatient (IN) | payer MEDICARE, BC ==
[2018-05-10] MEDS ORDERED: SODIUM CHLORIDE 0.9% 1,000 ML IV ONE ×2 (16:59→19:43)
--- NOTE | 2018-05-10 17:09 | ED ---
General Adult HPI - General Chief complaint: Altered Mental Status Stated complaint: Altered Mental Status Source: RN notes reviewed - History of Present Illness Initial comments: This is an 78-year-old female who activated her alert system that she needed some assistance today and when they found her she was alert and oriented times one she is normally alert and oriented 4. According to the EMS patient had last been seen by neighbors 4 days ago. Patient is a poor historian at this point because of her orientation and is unable to give any further history. When you ask her if anything hurts she states her whole body hurts. Patient doesn't remember calling the EMS. And no family or caregivers are with the patient. EMS states that the patient had a very small superficial abrasion to his nose and the patient at some point in time stated that she did fall but doesn't know why or when or what specifically hurts. - Related Data Home Medications Medication Instructions Recorded Confirmed Potassium Chloride [K-Tab ER] 10 meq PO TID 08/07/15 05/10/18 Allopurinol [Zyloprim] 300 mg PO DAILY 01/15/18 05/10/18 Atorvastatin Calcium [Lipitor] 20 mg PO DAILY 01/15/18 05/10/18 Losartan Potassium [Cozaar] 25 mg PO DAILY 01/15/18 05/10/18 Furosemide [Lasix] 40 mg PO DAILY 03/20/18 05/10/18 Repaglinide [Prandin] 1 mg PO TID 03/20/18 05/10/18 Doxepin HCl 50 mg PO HS 04/19/18 05/10/18 Furosemide [Lasix] 40 mg PO DAILY@1200 PRN 04/19/18 05/10/18 Metolazone [Zaroxolyn] 2.5 mg PO MOWEFR 04/19/18 05/10/18 Levothyroxine Sodium [Synthroid] 150 mcg PO SUWE 04/20/18 05/10/18 Levothyroxine Sodium [Synthroid] 300 mcg PO MOTUTHFRSA 04/20/18 05/10/18 Aspirin 325 mg PO DAILY 05/10/18 05/10/18 Atenolol [Tenormin] 50 mg PO DAILY 05/10/18 05/10/18 Cholecalciferol [Vitamin D3] 5,000 unit PO DAILY 05/10/18 05/10/18 Cyanocobalamin [Vitamin B-12] 500 mcg PO DAILY 05/10/18 05/10/18 Ferrous Sulfate [Feosol] 325 mg PO DAILY 05/10/18 05/10/18 Magnesium Oxide 400 mg PO DAILY 05/10/18 05/10/18 Midodrine HCl [ProAmatine] 10 mg PO TID 05/10/18 05/10/18 Oxybutynin Chloride [Ditropan XL] 10 mg PO BID 05/10/18 05/10/18 Allergies Allergy/AdvReac Type Severity Reaction Status Date / Time morphine AdvReac Drug Verified 05/10/18 18:18 interaction w/unknown drug Review of Systems ROS Statement: Those systems with pertinent positive or pertinent negative responses have been documented in the HPI. ROS Other: All systems not noted in ROS Statement are negative. Past Medical History Past Medical History: Coronary Artery Disease (CAD), Cancer, Heart Failure, Diabetes Mellitus, Hyperlipidemia, Hypertension, Osteoarthritis (OA), Renal Disease, Thyroid Disorder Additional Past Medical History / Comment(s): lt breast cancer had lumpectomy and chemo, arthritis History of Any Multi-Drug Resistant Organisms: None Reported Past Surgical History: Appendectomy, Back Surgery, Cholecystectomy, Heart Catheterization With Stent, Joint Replacement, Orthopedic Surgery, Tonsillectomy Additional Past Surgical History / Comment(s): may knee replacements."lt ankle arthroscopy and clean out" ,rt shoulder floating bone removed. left breast lumpectomy Past Anesthesia/Blood Transfusion Reactions: No Reported Reaction Date of Last Stent Placement:: unk Past Psychological History: No Psychological Hx Reported Additional Psychological History / Comment(s): pt stated lives in [facility], uses [facility] when up. no home care services. Smoking Status: Never smoker Past Alcohol Use History: None Reported Past Drug Use History: None Reported - Past Family History Father Family Medical History: Cancer Additional Family Medical History / Comment(s): dad had breast cancer Mother Family Medical History: No Reported History Additional Family Medical History / Comment(s): from old age in her 90's Brother(s) History Unknown: Yes Additional Family Medical History / Comment(s): Patient 1 brother that of old age. Daughter(s) Family Medical History: No Reported History Additional Family Medical History / Comment(s): Patient has a daughter that is healthy with no major medical problems. General Exam - General Exam Comments Initial Comments: GENERAL: Patient is well-developed and well-nourished. Patient is nontoxic and well- hydrated and is in no acute distress. ENT: Neck is soft and supple. No significant lymphadenopathy is noted. Oropharynx is clear. Dry mucous membranes. Patient's collar was in a c-collar because she was found sitting on the floor but no one knows if she fell. EYES: The sclera were anicteric and conjunctiva were pink and moist. Extraocular movements were intact and pupils were equal round and reactive to light. Eyelids were unremarkable. PULMONARY: Unlabored respirations. Good breath sounds bilaterally. No audible rales rhonchi or wheezing was noted. CARDIOVASCULAR: Patient has no irregular heartbeat ABDOMEN: Soft and nontender with normal bowel sounds. No palpable organomegaly was noted. There is no palpable pulsatile mass. SKIN: Superficial abrasion to the bridge of the nose. NEUROLOGIC: Patient is alert and oriented 1. Cranial nerves II through XII are grossly intact. Patient is weak in all 4 extremities but she is able to move them equal relative to the other side. Patient states she can feel light touch in all 4 extremities. MUSCULOSKELETAL: Normal extremities with adequate strength and full range of motion. 2+ edema LYMPHATICS: No significant lymphadenopathy is noted PSYCHIATRIC: Difficult to assess since patient is not oriented except to her self. Course Vital Signs 05/10/18 05/10/18 05/10/18 17:00 17:38 18:03 Temperature 97.6 F Pulse Rate 102 H 112 H 87 Respiratory 26 H 25 H Rate Blood Pressure 135/72 140/77 O2 Sat by Pulse 99 97 Oximetry 05/10/18 05/10/18 18:30 19:30 Temperature Pulse Rate 96 106 H Respiratory 20 22 Rate Blood Pressure 138/64 130/65 O2 Sat by Pulse 99 100 Oximetry Medical Decision Making - Medical Decision Making EKG shows atrial fibrillation at 93 bpm QRS is 92 QT interval is 464 QTC is 576. Patient's EKG shows no ST segment elevation or depression. Patient has A. fib on a previous EKG - Lab Data Result diagrams: 05/10/18 17:20 05/10/18 17:20 Lab Results 05/10/18 05/10/18 05/10/18 Range/Units 17:20 17:20 17:20 WBC 8.3 (3.8-10.6) k/uL RBC 3.17 L (3.80-5.40) m/uL Hgb 9.7 L D (11.4-16.0) gm/dL Hct 31.6 L (34.0-46.0) % MCV 99.6 (80.0-100.0) fL MCH 30.7 (25.0-35.0) pg MCHC 30.8 L (31.0-37.0) g/dL RDW 16.8 H (11.5-15.5) % Plt Count 272 (150-450) k/uL Neutrophils % 84 % Lymphocytes % 7 % Monocytes % 7 % Eosinophils % 0 % Basophils % 0 % Neutrophils # 7.0 (1.3-7.7) k/uL Lymphocytes # 0.6 L (1.0-4.8) k/uL Monocytes # 0.6 (0-1.0) k/uL Eosinophils # 0.0 (0-0.7) k/uL Basophils # 0.0 (0-0.2) k/uL Hypochromasia Slight Anisocytosis Slight Macrocytosis Slight PT (9.0-12.0) sec INR (<1.2) APTT (22.0-30.0) sec Sodium (137-145) mmol/L Potassium (3.5-5.1) mmol/L Chloride (98-107) mmol/L Carbon Dioxide (22-30) mmol/L Anion Gap mmol/L BUN (7-17) mg/dL Creatinine (0.52-1.04) mg/dL Est GFR (CKD-EPI)AfAm (>60 ml/min/1.73 sqM) Est GFR (CKD-EPI)NonAf (>60 ml/min/1.73 sqM) Glucose (74-99) mg/dL POC Glucose (mg/dL) (75-99) mg/dL POC Glu Manager Trust ID Calcium (8.4-10.2) mg/dL Total Bilirubin (0.2-1.3) mg/dL AST (14-36) U/L ALT (9-52) U/L Alkaline Phosphatase (38-126) U/L Total Creatine Kinase 919 H (30-135) U/L CK-MB (CK-2) 11.5 H (0.0-2.4) ng/mL CK-MB (CK-2) Rel Index 1.3 Troponin I 0.048 H* (0.000-0.034) ng/mL Total Protein (6.3-8.2) g/dL Albumin (3.5-5.0) g/dL Urine Color Yellow Urine Appearance Clear (Clear) Urine pH 5.0 (5.0-8.0) Ur Specific [place] 1.012 (1.001-1.035) Urine Protein Negative (Negative) Urine Glucose (UA) Negative (Negative) Urine Ketones Negative (Negative) Urine Blood Negative (Negative) Urine Nitrite Negative (Negative) Urine Bilirubin Negative (Negative) Urine Urobilinogen 2.0 (<2.0) mg/dL Ur Leukocyte Esterase Small H (Negative) Urine RBC 1 (0-5) /hpf Urine WBC 3 (0-5) /hpf Ur Squamous Epith Cells 1 (0-4) /hpf Amorphous Sediment Rare H (None) /hpf Hyaline Casts 31 H (0-2) /lpf Urine Mucus Rare H (None) /hpf 05/10/18 05/10/18 05/10/18 Range/Units 17:20 17:20 17:59 WBC (3.8-10.6) k/uL RBC (3.80-5.40) m/uL Hgb (11.4-16.0) gm/dL Hct (34.0-46.0) % MCV (80.0-100.0) fL MCH (25.0-35.0) pg MCHC (31.0-37.0) g/dL RDW (11.5-15.5) % Plt Count (150-450) k/uL Neutrophils % % Lymphocytes % % Monocytes % % Eosinophils % % Basophils % % Neutrophils # (1.3-7.7) k/uL Lymphocytes # (1.0-4.8) k/uL Monocytes # (0-1.0) k/uL Eosinophils # (0-0.7) k/uL Basophils # (0-0.2) k/uL Hypochromasia Anisocytosis Macrocytosis PT 11.5 (9.0-12.0) sec INR 1.1 (<1.2) APTT 21.0 L (22.0-30.0) sec Sodium 145 (137-145) mmol/L Potassium 2.6 L* (3.5-5.1) mmol/L Chloride 102 (98-107) mmol/L Carbon Dioxide 30 (22-30) mmol/L Anion Gap 13 mmol/L BUN 94 H (7-17) mg/dL Creatinine 2.08 H (0.52-1.04) mg/dL Est GFR (CKD-EPI)AfAm 25 (>60 ml/min/1.73 sqM) Est GFR (CKD-EPI)NonAf 22 (>60 ml/min/1.73 sqM) Glucose 132 H (74-99) mg/dL POC Glucose (mg/dL) 121 H (75-99) mg/dL POC Glu Manager Trust ID Viral [place] Calcium 9.1 (8.4-10.2) mg/dL Total Bilirubin 1.0 (0.2-1.3) mg/dL AST 53 H (14-36) U/L ALT 25 (9-52) U/L Alkaline Phosphatase 95 (38-126) U/L Total Creatine Kinase (30-135) U/L CK-MB (CK-2) (0.0-2.4) ng/mL CK-MB (CK-2) Rel Index Troponin I (0.000-0.034) ng/mL Total Protein 5.9 L (6.3-8.2) g/dL Albumin 3.4 L (3.5-5.0) g/dL Urine Color Urine Appearance (Clear) Urine pH (5.0-8.0) Ur Specific [place] (1.001-1.035) Urine Protein (Negative) Urine Glucose (UA) (Negative) Urine Ketones (Negative) Urine Blood (Negative) Urine Nitrite (Negative) Urine Bilirubin (Negative) Urine Urobilinogen (<2.0) mg/dL Ur Leukocyte Esterase (Negative) Urine RBC (0-5) /hpf Urine WBC (0-5) /hpf Ur Squamous Epith Cells (0-4) /hpf Amorphous Sediment (None) /hpf Hyaline Casts (0-2) /lpf Urine Mucus (None) /hpf Disposition Clinical Impression: Altered mental status, Renal insufficiency, Hypokalemia, Anemia Disposition: ADMITTED IP TO THIS HOSP Referrals: Brii Terrazas MD [Primary Care Provider] - 1-2 days Time of Disposition: 19:42
[2018-05-10 17:46] LABS: Amorphous Sediment,Urine Rare /hpf; Appearance,Urine Clear (Clear); Bilirubin,Urine Negative (Negative); Blood,Urine Negative (Negative); Color,Urine Yellow; Glucose,Urine (UA) Negative (Negative); Hyaline Casts,Urine 31 /lpf (0-2); Ketones,Urine Negative (Negative); Leukocyte Esterase,Urine Small (Negative); Mucus,Urine Rare /hpf; Nitrite,Urine Negative (Negative); Protein,Urine Negative (Negative); RBC,Urine 1 /hpf (0-5); Specific Gravity,Urine 1.012 (1.001-1.035); Squamous Epithelial Cell,Urine 1 /hpf (0-4); WBC,Urine 3 /hpf (0-5)
[2018-05-10 17:49] LABS: INR 1.1 (<1.2); Prothrombin Time 11.5 sec (9.0-12.0)
[2018-05-10 17:51] LABS: Anisocytosis Slight; Basophils % (A) 0 %; Eosinophils % (A) 0 %; HCT 31.6 % (34.0-46.0); Hypochromasia Slight; Lymphocytes # (A) 0.6 k/uL (1.0-4.8); Lymphocytes % (A) 7 %; MCH 30.7 pg (25.0-35.0); MCHC 30.8 g/dL (31.0-37.0); MCV 99.6 fL (80.0-100.0); Macrocytosis Slight; Mean Platelet Volume 7.2; Monocytes # (A) 0.6 k/uL (0-1.0); Monocytes % (A) 7 %; Neutrophils % (A) 84 %; Platelet Count 272 k/uL (150-450); RBC 3.17 m/uL (3.80-5.40); RDW 16.8 % (11.5-15.5); WBC 8.3 k/uL (3.8-10.6)
[2018-05-10 17:54] LABS: HGB 9.7 gm/dL (11.4-16.0)
[2018-05-10 17:55] LABS: Albumin 3.4 g/dL (3.5-5.0); Calcium 9.1 mg/dL (8.4-10.2); Total Protein 5.9 g/dL (6.3-8.2)
[2018-05-10 18:00] LABS: Glucose,Whole Blood 121 mg/dL (75-99)
[2018-05-10 18:04] LABS: Potassium 2.6 mmol/L (3.5-5.1)
--- NOTE | 2018-05-10 18:06 | CT ---
EXAMINATION TYPE: CT brain jose david galan DATE OF EXAM: 05/10/2018 COMPARISON: 04/18/2018 HISTORY: ams, pt found on floor CT DLP: 1469.2 mGycm Automated exposure control for dose reduction was used. TECHNIQUE: CT scan of the head and cervical spine are performed without contrast. FINDINGS: There is moderate hypodensity in the periventricular white matter. There is no mass effec t nor midline shift. There is cerebral cortical atrophy. There is no evidence of intracranial hemorrh age. The calvarium is intact. The cervical vertebra have fairly normal alignment. There is degenerative disc space narrowing at C5- 6 with spurring of the endplates. Facet joints are intact. The skull base is intact. There is no evid ence of cervical spine fracture. IMPRESSION: Atrophy and chronic small vessel ischemia. No acute intracranial abnormality. No change. Mild spondylosis at C5-6. No fracture. No change.
[2018-05-10 18:08] LABS: Creatine Kinase MB 11.5 ng/mL (0.0-2.4)
[2018-05-10] MEDS ORDERED: POTASSIUM CHLORIDE 20 MEQ in WATER FOR INJECTION 1 100ML.BAG IVPB STA (18:10)
[2018-05-10 18:11] LABS: Troponin I 0.048 ng/mL (0.000-0.034)
--- NOTE | 2018-05-10 19:15 | XR ---
EXAMINATION TYPE: XR pelvis AP view DATE OF EXAM: 05/10/2018 COMPARISON: NONE HISTORY: Pain TECHNIQUE: Single view FINDINGS: Pelvic ring is intact. There is acetabular spurring on the left side more than the right. T here is sclerosis and cystic change in the left femoral head. Proximal right femur is intact. Sacroil iac joints appear normal. 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 No acute fracture seen.
--- NOTE | 2018-05-10 19:17 | XR ---
EXAMINATION TYPE: XR chest 2V DATE OF EXAM: 05/10/2018 COMPARISON: March 20, 2018 HISTORY: Altered mental status TECHNIQUE: Frontal and lateral views of the chest are obtained. FINDINGS: There is increased density in the right lower lung field that could be due to large diaphr agmatic hernia or hiatal hernia. This appears increased compared to last exam. There is no heart fail ure. Left lung is clear of infiltrate. There are chest leads. IMPRESSION: Increasing hiatal hernia compared to last exam. No heart failure.
[2018-05-10] MEDS ORDERED: Potassium Replacement Protocol 1 EACH MISC MISCELLANE PRN (19:47)
[2018-05-10] MEDS ORDERED: LORazepam 2 MG/ML INJ IV STA (19:54)
[2018-05-10 23:15] VITALS: TEMP 97.9
[2018-05-11] MEDS ORDERED: FUROSEMIDE 10 MG/ML 4 ML VIAL IV STA (05:29)
[2018-05-11] MEDS ORDERED: DILTIAZEM DRIP BOLUS FROM BAG 1 MG SOLN IV ONE (05:30)
[2018-05-11 05:32] LABS: Glucose,Whole Blood 148 mg/dL (75-99)
[2018-05-11] MEDS ORDERED: DILTIAZEM 50 MG in SODIUM CHLORIDE 0.9% 40 ML IV SCH (05:45)
[2018-05-11] MEDS ORDERED: POTASSIUM CHLORIDE 20 MEQ in WATER FOR INJECTION 1 100ML.BAG IVPB STA (05:50)
--- NOTE | 2018-05-11 05:53 | XR ---
EXAMINATION TYPE: XR chest 1V portable DATE OF EXAM: 05/11/2018 COMPARISON: Yesterday HISTORY: Short of breath TECHNIQUE: Single frontal view of the chest is obtained. FINDINGS: There are extensive bilateral pulmonary infiltrates. Heart is probably enlarged. IMPRESSION: Significant increased pulmonary infiltrates especially on the left side compared to yest erday. This could be RDS. Heart failure is also possible.
[2018-05-11 06:00] LABS: Calcium 8.6 mg/dL (8.4-10.2)
[2018-05-11 06:13] LABS: Potassium 2.5 mmol/L (3.5-5.1)
[2018-05-11 06:26] LABS: Creatine Kinase MB 8.9 ng/mL (0.0-2.4)
[2018-05-11 06:31] LABS: Troponin I 0.053 ng/mL (0.000-0.034)
--- NOTE | 2018-05-11 07:02 | XR ---
EXAMINATION TYPE: XR chest 1V portable DATE OF EXAM: 05/11/2018 CLINICAL HISTORY: Difficulty breathing had to be intubated. TECHNIQUE: Single AP portable semiupright view of the chest is obtained. COMPARISON: Chest x-ray from earlier today and older studies. CT abdomen and pelvis April 18, 2018. FINDINGS: There is new endotracheal tube, tip is at inferior clavicular margin at level of aortic kn ob, approximately 2 to 3 cm above the stef. Advise retracting 2 to 3 cm to be in more ideal positio n. There is new orogastric tube coiled in large malrotated stomach or hiatal hernia. There is diffuse left lung opacity and right lower lung opacity redemonstrated. Cardiac silhouette si ze is stable and enlarged. There is spinal stimulator device redemonstrated. IMPRESSION: 1. New endotracheal tube is slightly low in position, advised retracting 2 to 3 cm to be more ideal p osition. 2. Orogastric tube is coiled in the malrotated intrathoracic stomach does not project below diaphragm , may be difficult to attempt repositioning to get in gastric antrum which is only portion of stomach below diaphragm. 3. Persistent cardiomegaly with diffuse left lung edema and/or infiltrates and right lower lung atele ctasis and/or infiltrate all redemonstrated.
[2018-05-11] MEDS ORDERED: LEVOTHYROXINE 100 MCG TAB PO SCH (07:30)
[2018-05-11 07:41] LABS: ABG Base Excess -6.1 mmol/L; ABG HCO3 21 mmol/L (21-25); ABG Oxygen Saturation 68.3 % (94-97); ABG PCO2 49 mmHg (35-45); ABG PH 7.25 (7.35-7.45); ABG TCO2 23 mmol/L (19-24)
[2018-05-11] MEDS ORDERED: NOREPINEPHRINE 4 MG in SODIUM CHLORIDE 0.9% 250 ML IV SCH (07:45)
[2018-05-11 07:50] LABS: ABG Base Excess -5.8 mmol/L; ABG HCO3 21 mmol/L (21-25); ABG Oxygen Saturation 69.1 % (94-97); ABG PCO2 49 mmHg (35-45); ABG PH 7.25 (7.35-7.45); ABG TCO2 23 mmol/L (19-24)
[2018-05-11] MEDS ORDERED: POTASSIUM CHLORIDE 10 MEQ in WATER FOR INJECTION 1 100ML.BAG IVPB SCH (08:00)
[2018-05-11] MEDS ORDERED: PANTOPRAZOLE 40 MG/10 ML VIAL IVP SCH (09:00)
[2018-05-11] MEDS ORDERED: ATENOLOL 50 MG TAB PO SCH (09:00)
[2018-05-11] MEDS ORDERED: ATORVASTATIN 20 MG TAB PO SCH (09:00)
[2018-05-11] MEDS ORDERED: MIDODRINE 5 MG TAB PO SCH (09:00)
[2018-05-11] MEDS ORDERED: ALLOPURINOL 300 MG TAB PO SCH (09:00)
[2018-05-11] MEDS ORDERED: ASPIRIN 325 MG TAB PO SCH (09:00)
--- NOTE | 2018-05-11 09:17 | CONS ---
CONSULTATION PULMONARY AND CRITICAL CARE CONSULTATION: DATE OF SURGERY: 05/11/2018 at 8:30 a.m. This is an 78-year-old female who was admitted back on May 10. She came into the ICU after rapid response team was called on May 11. The patient apparently has a history of CAD, congestive heart failure, hypothyroidism, chronic kidney disease, and breast cancer. She is a resident at a local nursing facility. She was admitted to the hospital with a diagnosis of mental status changes, anemia, low potassium, and chronic kidney disease. Unfortunately, she developed atrial fibrillation with RVR and a Cardizem drip was started. The patient also developed severe GI bleed. An A- team was called and she was intubated on the floor and transferred to the ICU. The patient is currently on a saline IV at 100 mL an hour, Cardizem drip at 5 mg an hour, and Levophed at 30 mcg per minute. Her vent settings include the assist-control mode rate of 16, tidal volume 350, FiO2 of 100% and PEEP of 5. Blood gases show pO2 of 44 , a PaCO2 of 49, and the pH 7.25. She is doing very poorly. She is unresponsive. The patient barely has a gag reflex. She is triggering the ventilator. Doll's eyes are present. She does not respond to pain, painful or verbal stimuli. I had a long discussion with the family. They were in agreement and this was the 2 sons and a daughter that the patient would not have wanted to be on life support and would not want anything that heroic and they do agree to comfort measures. I told him that we would take her off the life support machine, give her basic IV and oxygen and narcotic as needed for any pain control. MEDICATIONS: Her home medications included Prandin, ProAmatine, Synthroid, Ditropan, Tenormin , potassium, Zaroxolyn, Mag-Ox, Cozaar, Lasix, Lipitor, Zyloprim, iron, vitamin B12, doxepin, vitamin D3, and aspirin. ALLERGIES: Allergies are apparently to MORPHINE. MEDICAL HISTORY: Medical history as mentioned include chronic kidney disease, breast cancer with previous lumpectomy, hypothyroidism, heart failure, CAD. She also apparently has a history of diabetes, hyperlipidemia, benign essential hypertension, DJD. SURGICAL HISTORY: Surgical history includes among other things appendectomy, back surgery, lumpectomy, cholecystectomy, heart catheterization with stent, joint replacement, tonsillectomy, bilateral knee replacement. SOCIAL HISTORY: Negative for tobacco, alcohol, or illicit drug use. FAMILY HISTORY: Positive for breast cancer. REVIEW OF SYSTEMS: Could not be obtained at this time. The patient is currently unresponsive and on mechanical ventilator. PHYSICAL EXAMINATION: Current vital signs reveal a temperature 97.9, heart rate of 125, respiratory rate of 40, a blood pressure of 90 systolic. Her saturations are only in the low 80s. Appears unresponsive. She is tachypneic. She has triggered the ventilator. Gag reflex is poor. HEENT examination is grossly unremarkable. Endotracheal tube is noted. NG tube is noted. Dark blood is pouring out of the NG tube. NECK: Supple. Full range of motion. No adenopathy. Cardiovascular examination reveals tachycardia. Heart rate about 120. She is irregular and consistent with atrial fibrillation. No distinct murmurs noted. S1, S2 appears normal. Lungs reveal coarse rhonchi. Breath sounds are diminished throughout. No crackles or wheezes. ABDOMEN: Soft. No bowel sounds. Extremities reveal significant lower extremity edema. Lower extremities are also very erythematous and hyperemic. The edema is pitting. Skin without obvious rash. There were some areas of ecchymoses. Neurologic examination could not be properly assessed. Laboratory values are currently complete. Sodium 150, potassium 2.5, chloride 111, CO2 of 28, anion gap 11. BUN and creatinine were 82 and 1.57. Her CK was 536. Her CK-MB was 8.9, index was 1.7. Troponins were 0.048 and 0.053. N terminal proBNP 917. Urine is evaluated. Albumin 3.4. Previous hemoglobin was 9.7. A chest x-ray done post intubation shows endotracheal tube to be about 2 to 3 cm above the tracheal stef. There is cardiomegaly. There is bibasilar bilateral infiltrates worse on the left than on the right. There may be left pleural effusion. Microbiologic studies are pending or negative. Medications are reviewed. Many of these were added when she was admitted. ASSESSMENT: 1. Hypoxemic respiratory failure requiring intubation and mechanical ventilation on 05/11. 2. Bilateral pneumonia. 3. Acute gastrointestinal bleed. 4. Chronic kidney disease. 5. Profound mental status changes. 6. Atrial fibrillation with rapid ventricular response. 7. Breast cancer, status post lumpectomy. 8. Hypothyroidism. 9. Congestive heart failure. 10.Coronary artery disease. 11.Hypertension. 12.Diabetes. 13.Hyperlipidemia. 14.Multiple medical problems and comorbidities. PLAN: This is plan dated 05/11/2018. Currently, the patient is in severe distress. Her blood gases show a pO2 of only 44, a pCO2 49, and pH 7.25. Chest x-ray shows diffuse bilateral infiltrates, left greater than right. The patient's blood pressure is quite low. She is on Levophed at 30 mcg per minute. The atrial fibrillation with RVR is being treated with Cardizem 5 mg/hour. Her NG tube is full of dark blood. I had a long conversation with the family, which included 2 sons and a daughter. They all agree that mom would not want to be on life support. They think we should withdraw life support make her comfortable. This apparently was her prior wishes. She had been at a rehab facility for quite some time. Very limited. Has been falling quite a bit. She did have a CT scan of the brain when she came into the emergency room. It was negative. There was no cervical fracture. Her overall prognosis remains very, very poor. I do not believe once we withdraw life support that she will last very long. We had a long talk with the family. They agreed to this. No additional recommendations are made. Prognosis is obviously very poor. MARISSA / RUBEN: [id number] / MTDD
[2018-05-11] MEDS ORDERED: MORPHINE SULFATE 2 MG/ML SYRINGE IV PRN (09:23)
--- NOTE | 2018-05-11 09:31 | P.PN ---
Subjective Progress Note Date: 05/11/18 Family decided for comfort care at this morning and was ready to be extubated as I was walking into the room. Consult was not done. Objective - Vital Signs Vital signs: Vital Signs Temp 97.9 F 05/10/18 23:13 Pulse 94 05/10/18 23:13 Resp 16 05/10/18 23:13 BP 107/62 05/10/18 23:13 Pulse Ox 100 05/10/18 23:13 Intake & Output 05/10/18 05/11/18 05/11/18 18:59 06:59 18:59 Output Total 400 Balance -400 Weight 86.092 kg Output: Urine 400 - Labs CBC & Chem 7: 05/10/18 17:20 05/11/18 05:45 Labs: Abnormal Lab Results - Last 24 Hours (Table) 05/10/18 05/10/18 05/10/18 Range/Units 17:20 17:20 17:20 RBC 3.17 L (3.80-5.40) m/uL Hgb 9.7 L D (11.4-16.0) gm/dL Hct 31.6 L (34.0-46.0) % MCHC 30.8 L (31.0-37.0) g/dL RDW 16.8 H (11.5-15.5) % Lymphocytes # 0.6 L (1.0-4.8) k/uL APTT (22.0-30.0) sec Sodium (137-145) mmol/L Potassium (3.5-5.1) mmol/L Chloride (98-107) mmol/L BUN (7-17) mg/dL Creatinine (0.52-1.04) mg/dL Glucose (74-99) mg/dL POC Glucose (mg/dL) (75-99) mg/dL Magnesium (1.6-2.3) mg/dL AST (14-36) U/L Total Creatine Kinase 919 H (30-135) U/L CK-MB (CK-2) 11.5 H (0.0-2.4) ng/mL Troponin I 0.048 H* (0.000-0.034) ng/mL Total Protein (6.3-8.2) g/dL Albumin (3.5-5.0) g/dL Ur Leukocyte Esterase Small H (Negative) Amorphous Sediment Rare H (None) /hpf Hyaline Casts 31 H (0-2) /lpf Urine Mucus Rare H (None) /hpf 05/10/18 05/10/18 05/10/18 Range/Units 17:20 17:20 17:59 RBC (3.80-5.40) m/uL Hgb (11.4-16.0) gm/dL Hct (34.0-46.0) % MCHC (31.0-37.0) g/dL RDW (11.5-15.5) % Lymphocytes # (1.0-4.8) k/uL APTT 21.0 L (22.0-30.0) sec Sodium (137-145) mmol/L Potassium 2.6 L* (3.5-5.1) mmol/L Chloride (98-107) mmol/L BUN 94 H (7-17) mg/dL Creatinine 2.08 H (0.52-1.04) mg/dL Glucose 132 H (74-99) mg/dL POC Glucose (mg/dL) 121 H (75-99) mg/dL Magnesium (1.6-2.3) mg/dL AST 53 H (14-36) U/L Total Creatine Kinase (30-135) U/L CK-MB (CK-2) (0.0-2.4) ng/mL Troponin I (0.000-0.034) ng/mL Total Protein 5.9 L (6.3-8.2) g/dL Albumin 3.4 L (3.5-5.0) g/dL Ur Leukocyte Esterase (Negative) Amorphous Sediment (None) /hpf Hyaline Casts (0-2) /lpf Urine Mucus (None) /hpf 05/11/18 05/11/18 05/11/18 Range/Units 05:10 05:45 05:45 RBC (3.80-5.40) m/uL Hgb (11.4-16.0) gm/dL Hct (34.0-46.0) % MCHC (31.0-37.0) g/dL RDW (11.5-15.5) % Lymphocytes # (1.0-4.8) k/uL APTT (22.0-30.0) sec Sodium 150 H (137-145) mmol/L Potassium 2.5 L* (3.5-5.1) mmol/L Chloride 111 H (98-107) mmol/L BUN 82 H (7-17) mg/dL Creatinine 1.57 H (0.52-1.04) mg/dL Glucose 115 H (74-99) mg/dL POC Glucose (mg/dL) 148 H (75-99) mg/dL Magnesium (1.6-2.3) mg/dL AST (14-36) U/L Total Creatine Kinase 536 H (30-135) U/L CK-MB (CK-2) 8.9 H (0.0-2.4) ng/mL Troponin I 0.053 H* (0.000-0.034) ng/mL Total Protein (6.3-8.2) g/dL Albumin (3.5-5.0) g/dL Ur Leukocyte Esterase (Negative) Amorphous Sediment (None) /hpf Hyaline Casts (0-2) /lpf Urine Mucus (None) /hpf 05/11/18 Range/Units 05:45 RBC (3.80-5.40) m/uL Hgb (11.4-16.0) gm/dL Hct (34.0-46.0) % MCHC (31.0-37.0) g/dL RDW (11.5-15.5) % Lymphocytes # (1.0-4.8) k/uL APTT (22.0-30.0) sec Sodium (137-145) mmol/L Potassium (3.5-5.1) mmol/L Chloride (98-107) mmol/L BUN (7-17) mg/dL Creatinine (0.52-1.04) mg/dL Glucose (74-99) mg/dL POC Glucose (mg/dL) (75-99) mg/dL Magnesium 2.8 H (1.6-2.3) mg/dL AST (14-36) U/L Total Creatine Kinase (30-135) U/L CK-MB (CK-2) (0.0-2.4) ng/mL Troponin I (0.000-0.034) ng/mL Total Protein (6.3-8.2) g/dL Albumin (3.5-5.0) g/dL Ur Leukocyte Esterase (Negative) Amorphous Sediment (None) /hpf Hyaline Casts (0-2) /lpf Urine Mucus (None) /hpf
[2018-05-11 10:19] VITALS: BP 69/41; PULSE 125; RESP 22
--- NOTE | 2018-05-11 11:33 | P.HPIM ---
History of Present Illness H&P Date: 05/11/18 (This document was stopped with his H&P and summary) This is 78 years old female patient of Dr. Terrazas with past medical history of coronary artery disease status post stent, congestive heart failure, hypothyroidism, chronic kidney disease, breast cancer who was last seen by neighbors 4 days ago. Patient is oriented 4 at baseline apparently she pushed her and alert button and was evaluated by EMS was found to be oriented 1 was brought to the ER patient was alert at that time and ER physician was able to get no history as she was confused. Did not remember any incident. On evaluation of the lab patient had nonspecific ST-T wave changes on the EKG did have mild troponin anemia creatinine of 2.08 which is above patient's baseline with the BUN 94, potassium 2.6. She was admitted for evaluation of dehydration , acute kidney injury. The ER physician was asked to send a card blood as there was anemia on the labs. Overnight patient decompensated with increasing oxygen requirement drop in blood pressure. Patient came to the floor at 845 with altered mental status. Patient went to A. fib and was called at 4:30 in the morning by the nurse with concern for respiratory distress and crackles on examination. Stat x-ray was ordered with a dose of Lasix 40 mg IV push stat given. Patient was initiated on Cardizem drip for atrial fibrillation. Patient family was updated. Patient deteriorated within couple of hours with drop in blood pressure with no improvement with levo fed and eventually got intubated by Dr. Stokes. a long discussion was made with the family and patient was made comfort care patient passed at 9:30 in the morning before patient could be evaluated Review of Systems Could not be obtained Past Medical History Past Medical History: Coronary Artery Disease (CAD), Cancer, Heart Failure, Diabetes Mellitus, Hyperlipidemia, Hypertension, Osteoarthritis (OA), Renal Disease, Thyroid Disorder Additional Past Medical History / Comment(s): lt breast cancer had lumpectomy and chemo, arthritis History of Any Multi-Drug Resistant Organisms: None Reported Past Surgical History: Appendectomy, Back Surgery, Cholecystectomy, Heart Catheterization With Stent, Joint Replacement, Orthopedic Surgery, Tonsillectomy Additional Past Surgical History / Comment(s): may knee replacements."lt ankle arthroscopy and clean out" ,rt shoulder floating bone removed. left breast lumpectomy Past Anesthesia/Blood Transfusion Reactions: No Reported Reaction Date of Last Stent Placement:: unk Past Psychological History: No Psychological Hx Reported Additional Psychological History / Comment(s): pt stated lives in senior apts, uses walker when up. no home care services. Smoking Status: Never smoker Past Alcohol Use History: None Reported Past Drug Use History: None Reported - Past Family History Father Family Medical History: Cancer Additional Family Medical History / Comment(s): dad had breast cancer Mother Family Medical History: No Reported History Additional Family Medical History / Comment(s): from old age in her 90's Brother(s) History Unknown: Yes Additional Family Medical History / Comment(s): Patient 1 brother that of old age. Daughter(s) Family Medical History: No Reported History Additional Family Medical History / Comment(s): Patient has a daughter that is healthy with no major medical problems. Medications and Allergies Home Medications Medication Instructions Recorded Confirmed Type Potassium Chloride [K-Tab ER] 10 meq PO TID 08/07/15 05/10/18 History Allopurinol [Zyloprim] 300 mg PO DAILY 01/15/18 05/10/18 History Atorvastatin Calcium [Lipitor] 20 mg PO DAILY 01/15/18 05/10/18 History Losartan Potassium [Cozaar] 25 mg PO DAILY 01/15/18 05/10/18 History Furosemide [Lasix] 40 mg PO DAILY 03/20/18 05/10/18 History Repaglinide [Prandin] 1 mg PO TID 03/20/18 05/10/18 History Doxepin HCl 50 mg PO HS 04/19/18 05/10/18 History Furosemide [Lasix] 40 mg PO DAILY@1200 PRN 04/19/18 05/10/18 History Metolazone [Zaroxolyn] 2.5 mg PO MOWEFR 04/19/18 05/10/18 History Levothyroxine Sodium [Synthroid] 150 mcg PO SUWE 04/20/18 05/10/18 History Levothyroxine Sodium [Synthroid] 300 mcg PO MOTUTHFRSA 04/20/18 05/10/18 History Aspirin 325 mg PO DAILY 05/10/18 05/10/18 History Atenolol [Tenormin] 50 mg PO DAILY 05/10/18 05/10/18 History Cholecalciferol [Vitamin D3] 5,000 unit PO DAILY 05/10/18 05/10/18 History Cyanocobalamin [Vitamin B-12] 500 mcg PO DAILY 05/10/18 05/10/18 History Ferrous Sulfate [Feosol] 325 mg PO DAILY 05/10/18 05/10/18 History Magnesium Oxide 400 mg PO DAILY 05/10/18 05/10/18 History Midodrine HCl [ProAmatine] 10 mg PO TID 05/10/18 05/10/18 History Oxybutynin Chloride [Ditropan XL] 10 mg PO BID 05/10/18 05/10/18 History Allergies Allergy/AdvReac Type Severity Reaction Status Date / Time morphine AdvReac Drug Verified 05/10/18 18:18 interaction w/unknown drug Physical Exam Vitals: Vital Signs Temp Pulse Pulse Resp BP BP Pulse Ox 05/11/18 09:00 125 H 22 69/41 55 L 05/11/18 08:00 116 H 47 H 86/42 65 L 05/11/18 07:00 128 H 24 65/39 69 L 05/10/18 23:13 97.9 F 94 16 107/62 100 05/10/18 20:45 98.1 F 94 18 137/73 99 05/10/18 20:42 20 05/10/18 19:30 106 H 22 130/65 100 05/10/18 18:30 96 20 138/64 99 05/10/18 18:03 87 05/10/18 17:38 112 H 25 H 140/77 97 05/10/18 17:00 97.6 F 102 H 26 H 135/72 99 Intake and Output 05/10/18 05/11/18 05/11/18 22:59 06:59 14:59 Output Total 400 Balance -400 Output: Urine 400 Other: Weight 86.092 kg Could not be obtained Results CBC & Chem 7: 05/10/18 17:20 05/11/18 05:45 Labs: Abnormal Lab Results - Last 24 Hours (Table) 05/10/18 05/10/18 05/10/18 Range/Units 17:20 17:20 17:20 RBC 3.17 L (3.80-5.40) m/uL Hgb 9.7 L D (11.4-16.0) gm/dL Hct 31.6 L (34.0-46.0) % MCHC 30.8 L (31.0-37.0) g/dL RDW 16.8 H (11.5-15.5) % Lymphocytes # 0.6 L (1.0-4.8) k/uL APTT (22.0-30.0) sec Sodium (137-145) mmol/L Potassium (3.5-5.1) mmol/L Chloride (98-107) mmol/L BUN (7-17) mg/dL Creatinine (0.52-1.04) mg/dL Glucose (74-99) mg/dL POC Glucose (mg/dL) (75-99) mg/dL Magnesium (1.6-2.3) mg/dL AST (14-36) U/L Total Creatine Kinase 919 H (30-135) U/L CK-MB (CK-2) 11.5 H (0.0-2.4) ng/mL Troponin I 0.048 H* (0.000-0.034) ng/mL Total Protein (6.3-8.2) g/dL Albumin (3.5-5.0) g/dL TSH (0.465-4.680) mIU/L Free T4 (0.78-2.19) ng/dL Ur Leukocyte Esterase Small H (Negative) Amorphous Sediment Rare H (None) /hpf Hyaline Casts 31 H (0-2) /lpf Urine Mucus Rare H (None) /hpf 05/10/18 05/10/18 05/10/18 Range/Units 17:20 17:20 17:59 RBC (3.80-5.40) m/uL Hgb (11.4-16.0) gm/dL Hct (34.0-46.0) % MCHC (31.0-37.0) g/dL RDW (11.5-15.5) % Lymphocytes # (1.0-4.8) k/uL APTT 21.0 L (22.0-30.0) sec Sodium (137-145) mmol/L Potassium 2.6 L* (3.5-5.1) mmol/L Chloride (98-107) mmol/L BUN 94 H (7-17) mg/dL Creatinine 2.08 H (0.52-1.04) mg/dL Glucose 132 H (74-99) mg/dL POC Glucose (mg/dL) 121 H (75-99) mg/dL Magnesium (1.6-2.3) mg/dL AST 53 H (14-36) U/L Total Creatine Kinase (30-135) U/L CK-MB (CK-2) (0.0-2.4) ng/mL Troponin I (0.000-0.034) ng/mL Total Protein 5.9 L (6.3-8.2) g/dL Albumin 3.4 L (3.5-5.0) g/dL TSH (0.465-4.680) mIU/L Free T4 (0.78-2.19) ng/dL Ur Leukocyte Esterase (Negative) Amorphous Sediment (None) /hpf Hyaline Casts (0-2) /lpf Urine Mucus (None) /hpf 05/11/18 05/11/18 05/11/18 Range/Units 05:10 05:24 05:45 RBC (3.80-5.40) m/uL Hgb (11.4-16.0) gm/dL Hct (34.0-46.0) % MCHC (31.0-37.0) g/dL RDW (11.5-15.5) % Lymphocytes # (1.0-4.8) k/uL APTT (22.0-30.0) sec Sodium 150 H (137-145) mmol/L Potassium 2.5 L* (3.5-5.1) mmol/L Chloride 111 H (98-107) mmol/L BUN 82 H (7-17) mg/dL Creatinine 1.57 H (0.52-1.04) mg/dL Glucose 115 H (74-99) mg/dL POC Glucose (mg/dL) 148 H (75-99) mg/dL Magnesium (1.6-2.3) mg/dL AST (14-36) U/L Total Creatine Kinase (30-135) U/L CK-MB (CK-2) (0.0-2.4) ng/mL Troponin I (0.000-0.034) ng/mL Total Protein (6.3-8.2) g/dL Albumin (3.5-5.0) g/dL TSH <0.015 L (0.465-4.680) mIU/L Free T4 3.70 H (0.78-2.19) ng/dL Ur Leukocyte Esterase (Negative) Amorphous Sediment (None) /hpf Hyaline Casts (0-2) /lpf Urine Mucus (None) /hpf 05/11/18 05/11/18 Range/Units 05:45 05:45 RBC (3.80-5.40) m/uL Hgb (11.4-16.0) gm/dL Hct (34.0-46.0) % MCHC (31.0-37.0) g/dL RDW (11.5-15.5) % Lymphocytes # (1.0-4.8) k/uL APTT (22.0-30.0) sec Sodium (137-145) mmol/L Potassium (3.5-5.1) mmol/L Chloride (98-107) mmol/L BUN (7-17) mg/dL Creatinine (0.52-1.04) mg/dL Glucose (74-99) mg/dL POC Glucose (mg/dL) (75-99) mg/dL Magnesium 2.8 H (1.6-2.3) mg/dL AST (14-36) U/L Total Creatine Kinase 536 H (30-135) U/L CK-MB (CK-2) 8.9 H (0.0-2.4) ng/mL Troponin I 0.053 H* (0.000-0.034) ng/mL Total Protein (6.3-8.2) g/dL Albumin (3.5-5.0) g/dL TSH (0.465-4.680) mIU/L Free T4 (0.78-2.19) ng/dL Ur Leukocyte Esterase (Negative) Amorphous Sediment (None) /hpf Hyaline Casts (0-2) /lpf Urine Mucus (None) /hpf Thrombosis Risk Factor Assmnt - Choose All That Apply Each Factor Represents 1 point: Medical pt on bed rest, Obesity (BMI >25), Swollen legs (current) Other Risk Factors: Yes Each Risk Factor Represents 2 Points: Patient confined to bed Other congenital or acquired thrombophilia - If yes, enter type in comment: No Thrombosis Risk Factor Assessment Total Risk Factor Score: 5 Thrombosis Risk Factor Assessment Level: High Risk Assessment and Plan Plan: Discharge diagnoses Severe GI bleed A. fib with RVR Acute pulmonary edema from atrial fibrillation Congestive heart failure Coronary artery disease Acute on chronic kidney disease Acute hypoxic respiratory failure requiring ventilation Hypertension Hyperlipidemia Diabetes Bilateral pneumonia Time of that 9:30 AM
[2018-05-13] MEDS ORDERED: LEVOTHYROXINE 75 MCG TAB PO SCH (06:30)
[2018-05-15 10:51] LABS: ABG PO2 44 mmHg (83-108)
[2018-05-15 10:54] LABS: ABG PO2 45 mmHg (83-108)
--- NOTE | 2018-05-15 13:01 | CDI ---
Date: 05/15/2018 12:04:24 PM From: Nguyen Padilla Email: Admit Date: 05/10/2018 7:42:00 PM Patient Name: Bonnie Crespo Visit Number: [id number] Discharge Date: 05/11/2018 1:34:00 PM ATTENTION: The Clinical Documentation Specialists (CDI) and [facility] Coding Staff appreciate your assistance in clarifying documentation. Please respond to the clarification below the line at the bottom and electronically sign. The CDI & [facility] Coding staff will review the response and follow-up if needed. Please note: Queries are made part of the Legal Health Record. If you have any questions, please contact the author of this message via ITS. Dr. Aurora Monteiro Altered Mental Status was documented in the ED note and the H&P. Change in mental status was documented by the Dialysis Chief Equipment Technician. History/Risk Factors: CAD, CHF, hypothyroidism, CKD, Patient is oriented 4 at baseline but apparently was evaluated by EMS and was found to be oriented 1. ER physician was able to get no history as she was confused. Did not remember any incident. Clinical Indicators: Confused, respiratory distress, hypotensive Labs: Cr 2.08, K+ 2.6, troponin 0.053, CK 919, CKMB 11.5, Mg 2.8, Na 150 CXR: Persistent cardiomegaly with diffuse left lung edema and or infiltrates and right lower lung atelectasis and infiltrate. CT of head and cervical spine: Atrophy and chronic small vessel ischemia Treatment: Ativan, potassium, IVF's, Cardizem drip, IV Lasix In your professional opinion, please clarify the etiology of the Altered Mental Status, if known. Delirium (specify cause): Encephalopathy (specify Type and Underlying Medical Illness) Other condition (please specify) Unable to determine MTDD
--- NOTE | 2018-05-15 13:22 | CDI ---
Documentation Clarification Form Date: 05/15/2018 1:05:49 PM From: Nguyen Padilla Email: [email or web address] Admit Date: 05/10/2018 7:42:00 PM Patient Name: Bonnie Crespo Visit Number: [id number] Discharge Date: 05/11/2018 1:34:00 PM ATTENTION: The Clinical Documentation Specialists (CDI) and [facility] Coding Staff appreciate your assistance in clarifying documentation. Please respond to the clarification below the line at the bottom and electronically sign. The CDI & [facility] Coding staff will review the response and follow-up if needed. Please note: Queries are made part of the Legal Health Record. If you have any questions, please contact the author of this message via ITS. Dr. Aurora Monteiro Atrial Fibrillation is documented in the record. History/Risk Factors: CAD s/p stents, CHF, hypothyroidism, CKD Clinical Indicators: confused, hypotensive, respiratory distress EKG/telemetry: Atrial fibrillation with RVR Treatment: Doretha garcia In your professional opinion, can you please clarify the type of Atrial Fibrillation, if known? Chronic/Permanent Paroxysmal Persistent Other, please specify Unable to determine MTDD
--- NOTE | 2018-05-15 13:54 | CDI ---
Documentation Clarification Form Date: 05/15/2018 1:26:42 PM From: Nguyen Padilla Email: [email or web address] Admit Date: 05/10/2018 7:42:00 PM Patient Name: Bonnie Crespo Visit Number: [id number] Discharge Date: 05/11/2018 1:34:00 PM ATTENTION: The Clinical Documentation Specialists (CDI) and [facility] Coding Staff appreciate your assistance in clarifying documentation. Please respond to the clarification below the line at the bottom and electronically sign. The CDI & [facility] Coding staff will review the response and follow-up if needed. Please note: Queries are made part of the Legal Health Record. If you have any questions, please contact the author of this message via ITS. Dr. Aurora Monteiro Patient was admitted with ANTONIETA and dehydration. History/Risk Factors: CKD, CAD, CHF Clinical Indicators: confusion, AMS, pulmonary edema Current BUN/CR/GFR: 94/2.01/07 Patients Baseline BUN/CR/GFR: documentation states above values are above patient's baseline but specific values not mentioned. Treatment: IVF, monitor labs In order to capture the severity of condition, please clarify if the condition signifies: CKD Stage 1 (GFR > 90) CKD Stage 2 (GFR 60-89) CKD Stage 3 (GFR 30-59) CKD Stage 4 (GFR 15-29) CKD Stage 5 (GFR <15) ESRD Other, please specify Unable to determine MTDD
--- NOTE | 2018-05-15 14:41 | CDI ---
Documentation Clarification Form Date: 05/15/2018 2:07:03 PM From: Nguyen Padilla Email: [email or web address] Admit Date: 05/10/2018 7:42:00 PM Patient Name: Bonnie Crespo Visit Number: [id number] Discharge Date: 05/11/2018 1:34:00 PM ATTENTION: The Clinical Documentation Specialists (CDI) and [facility] Coding Staff appreciate your assistance in clarifying documentation. Please respond to the clarification below the line at the bottom and electronically sign. The CDI & [facility] Coding staff will review the response and follow-up if needed. Please note: Queries are made part of the Legal Health Record. If you have any questions, please contact the author of this message via ITS. Dr. Aurora Monteiro Severe GI bleed is listed as a discharge diagnosis in the record. Patient history/risk factors: CAD, CKD, CHF Clinical Indicators: There was anemia on the labs. Overnight, patient decompensated with increasing oxygen requirement, drop in blood pressure. Patient arrived on the floor at 845 with altered mental status. Patient deteriorated within a couple of hours with drop in blood pressure with no improvement with Levophed. Eventually was intubated. Vitals: BP 60/39, HR 124, RR 24, POX 64% Treatment: IVF's IV Levophed, Midodrine In your professional opinion, is the above clinically significant for: Cardiogenic Shock Cause Hypovolemic Shock Cause Hemorrhagic Shock Other, please specify_ Atrial fib with RVR _, patient decompensated very fast, had atrial fibrillation with RVR and drop in hemoglobin with increase in BUN , no investigation could be done to prove GI bleed. Unable to determine MTDD
== END 2018-05-11 13:34 | disposition expired | DRG 682 ==
LOC: EC 16:53 → 4MS4W 19:42 → 2SICU 05-11 06:11
PROVIDERS: ADMIT Internal Medicine; ATTEND Internal Medicine
PROC: 5A1935Z Respiratory Ventilation, Less than 24 Consecutive Hours (ICD-10-PCS; principal; 2018-05-11)
PROC: 0BH17EZ Insertion of Endotracheal Airway into Trachea, Via Natural or Artificial Opening (ICD-10-PCS; 2018-05-11)
PROC: 0D9670Z Drainage of Stomach with Drainage Device, Via Natural or Artificial Opening (ICD-10-PCS; 2018-05-11)
DX: N17.9 Acute kidney failure, unspecified (principal); J96.01 Acute respiratory failure with hypoxia; J18.9 Pneumonia, unspecified organism; G93.41 Metabolic encephalopathy; K92.2 Gastrointestinal hemorrhage, unspecified; I13.0 Hypertensive heart and chronic kidney disease with heart failure and stage 1 through stage 4 chronic kidney disease, or unspecified chronic kidney disease; I48.91 Unspecified atrial fibrillation; E11.22 Type 2 diabetes mellitus with diabetic chronic kidney disease; I50.9 Heart failure, unspecified; Z51.5 Encounter for palliative care; Z66 Do not resuscitate; D64.9 Anemia, unspecified; E86.0 Dehydration; E87.6 Hypokalemia; K44.9 Diaphragmatic hernia without obstruction or gangrene; E03.9 Hypothyroidism, unspecified; E78.5 Hyperlipidemia, unspecified; N18.9 Chronic kidney disease, unspecified; I25.10 Atherosclerotic heart disease of native coronary artery without angina pectoris; M19.90 Unspecified osteoarthritis, unspecified site; S00.31XA Abrasion of nose, initial encounter; E66.9 Obesity, unspecified; Z68.37 Body mass index [BMI] 37.0-37.9, adult; Z79.82 Long term (current) use of aspirin; Z79.890 Hormone replacement therapy; Z79.899 Other long term (current) drug therapy; Z85.3 Personal history of malignant neoplasm of breast; Z92.3 Personal history of irradiation; Z96.653 Presence of artificial knee joint, bilateral; Z90.49 Acquired absence of other specified parts of digestive tract; Z74.01 Bed confinement status; Z95.5 Presence of coronary angioplasty implant and graft; Z88.5 Allergy status to narcotic agent; Z80.3 Family history of malignant neoplasm of breast
CPT/HCPCS: 36415; 36600; 70450; 71045; 71046; 72125; 72170; 80048; 80053; 81001; 82550; 82553; 82805; 83735; 83880; 84439; 84443; 84484; 85025; 85610; 85730; 93005; 94002; 96361; 96365; 96366; 96375; 99285